=== PATIENT | male | born 1960 | race Caucasian/White ===

== ENCOUNTER 2021-11-10 10:20 | Outpatient (RCR) | payer BC, SELFPAY ==
--- NOTE | ~2021-11-10 | XR_ITS ---
EXAMINATION: XR TOES, RIGHT CLINICAL INFORMATION: Right great toe, nonhealing ulcer. COMPARISON: None TECHNIQUE: 3 views of the right toes were obtained. FINDINGS: There is soft tissue hypodensity seen in the medial aspect of right distal great toe, likely edema. No periosteal thickening or erosive changes seen of the great toe. Rest of the visualized right foot is unremarkable. XR/XR toe RT min 2V IMPRESSION: Soft tissue hypodensity, likely edema, along the dorsal and the medial aspect of right great toe. No definite gas visualized. There is no periosteal thickening or elevation. There is moderate soft tissue swelling right great toe.
== END 2022-01-20 16:23 | disposition home or self-care (01) ==
LOC: HO.WCC 10:20
PROVIDERS: PCP Family Medicine; Visit Provider Physician Assistant
DX: E11.621 Type 2 diabetes mellitus with foot ulcer (principal); L97.512 Non-pressure chronic ulcer of other part of right foot with fat layer exposed; I10 Essential (primary) hypertension; L84 Corns and callosities; Z79.01 Long term (current) use of anticoagulants
CPT/HCPCS: 11042; 73660; 97597; 99212; 99213

== ENCOUNTER 2022-01-26 | Outpatient (RCR) | payer BC, SELFPAY | END 2022-04-22 13:59 | disposition home or self-care (01) | LOC: HO.WCC | PROVIDERS: PCP Family Medicine; Visit Provider Physician Assistant | DX: E11.621 Type 2 diabetes mellitus with foot ulcer (principal); L97.512 Non-pressure chronic ulcer of other part of right foot with fat layer exposed; L84 Corns and callosities; I10 Essential (primary) hypertension; Z79.2 Long term (current) use of antibiotics | CPT/HCPCS: 11042; 97597; 99212; 99213 ==

== ENCOUNTER 2022-02-17 09:20 | Outpatient (RCR) | payer BC, SELFPAY | END 2022-02-25 11:48 | disposition home or self-care (01) | LOC: HO.WCC 09:20 | PROVIDERS: PCP Family Medicine; Visit Provider Surgery | DX: E11.621 Type 2 diabetes mellitus with foot ulcer (principal); L97.512 Non-pressure chronic ulcer of other part of right foot with fat layer exposed; E11.40 Type 2 diabetes mellitus with diabetic neuropathy, unspecified; I10 Essential (primary) hypertension; Z79.84 Long term (current) use of oral hypoglycemic drugs | CPT/HCPCS: 11042 ==

== ENCOUNTER 2022-06-24 13:54 | Outpatient (REF) | payer BC, SELFPAY ==
--- NOTE | ~2022-06-24 | US_ITS ---
EXAMINATION: NONINVASIVE ASSESSMENT OF THE ARTERIES OF BOTH LOWER EXTREMITIES INCLUDING BILATERAL LOWER EXTREMITY DUPLEX. CLINICAL INFORMATION: Peripheral vascular disease COMPARISON: None TECHNIQUE: duplex Doppler techniques with wave form analysis and measurement of velocities in the left common femoral, profunda femoral, superficial femoral, popliteal, tibial and peroneal arteries. The study was performed only at rest. FINDINGS: RIGHT LEG LEFT LEG: Common femoral artery: 174 cm/s, Multiphasic Profunda femoris artery: 128 cm/s, Multiphasic Superficial femoral artery (proximal): 142 cm/s, Multiphasic Superficial femoral artery (mid): 188 cm/s, Multiphasic Superficial femoral artery (distal): 97 cm/s, Multiphasic Proximal Popliteal artery: 156 cm/s, Multiphasic Mid posterior tibial artery: Not visualized Peroneal artery: Not visualized US/US arterial duplex LE LT IMPRESSION: Mild atherosclerotic disease in the left lower extremity. Nonvisualization of the posterior tibial and peroneal arteries.
== END 2022-06-24 13:55 | disposition home or self-care (01) ==
LOC: HO.US 13:54
PROVIDERS: PCP Family Medicine; Visit Provider Surgery
DX: I73.89 Other specified peripheral vascular diseases (principal)
CPT/HCPCS: 93926

== ENCOUNTER 2022-06-29 08:00 | Outpatient (RCR) | payer BC, SELFPAY | END 2022-07-27 13:58 | disposition home or self-care (01) | LOC: HO.WCC 08:00 | PROVIDERS: Visit Provider Surgery | DX: E11.621 Type 2 diabetes mellitus with foot ulcer (principal); L97.526 Non-pressure chronic ulcer of other part of left foot with bone involvement without evidence of necrosis; E11.51 Type 2 diabetes mellitus with diabetic peripheral angiopathy without gangrene; L08.9 Local infection of the skin and subcutaneous tissue, unspecified; I48.0 Paroxysmal atrial fibrillation; I10 Essential (primary) hypertension; Z79.01 Long term (current) use of anticoagulants; Z79.2 Long term (current) use of antibiotics; Z79.899 Other long term (current) drug therapy | CPT/HCPCS: 11042; 11043; 99212 ==

== ENCOUNTER → 2022-07-01 13:53 | Outpatient (BNVA) | payer BC, SELFPAY | PROVIDERS: PCP Family Medicine; Visit Provider Surgery Vascular Surgery | DX: Z13.89 Encounter for screening for other disorder (principal) ==

== ENCOUNTER 2022-07-07 12:58 | Inpatient (IN) | payer BC, SELFPAY ==
--- NOTE | ~2022-07-07 | XR_ITS ---
EXAMINATION: XR TOES, LEFT CLINICAL INFORMATION: Chronic wound great toe COMPARISON: None TECHNIQUE: 4 views of the left toes were obtained. FINDINGS: A soft tissue defect is seen just medial to the DIP joint of the first digit. No underlying bony destructive changes are seen. Some density seen overlying the medial distal phalanx on oblique images may be related to patient bandages. Vascular calcifications are present. Some minor degenerative changes are seen at the DIP joints. XR/XR toe LT min 2V IMPRESSION: No evidence of osteomyelitis. Soft tissue defect as described above.
[2022-07-07 13:03] VITALS: BP 152/79; PULSE 102; RESP 18; TEMP 36.8; O2SAT 97; BMI 47.0
--- NOTE | 2022-07-07 13:03 | ED_ITS ---
HPI - General Adult General Chief complaint: General Medical <JOHN Bocanegra - Last Filed: 07/07/22 13:08> Stated complaint: sent by wound clinic for antibiotics <JOHN Bocanegra - Last Filed: 07/07/22 13:08> Time Seen by Provider: 07/07/22 14:43 <JOHN Bocanegra - Last Filed: 07/07/22 13:08> Source: patient <Wanda Noriega MD - Last Filed: 07/07/22 16:32> Mode of arrival: ambulatory <Wanda Noriega MD - Last Filed: 07/07/22 16:32> History of Present Illness HPI narrative: 62-year-old male with history of diabetes and hypertension presents as a referral from the wound clinic, he denies any fever chills but states that his left great toe has been worsening after he discovered a ?blood blister? on his left great toe. He states the since that time the toe his this become much worse. <Wanda Noriega MD - Last Filed: 07/07/22 16:32> Related Data Home medications: Home Medications Medication Instructions Recorded Confirmed amiodarone 200 mg tablet 200 mg PO DAILY 07/01/22 apixaban 5 mg tablet (Eliquis) 5 mg PO BID 07/01/22 atorvastatin 20 mg tablet 20 mg PO DAILY 07/01/22 diltiazem HCl 240 mg 240 mg PO DAILY 07/01/22 capsule,extended release 24 hr doxycycline hyclate 100 mg capsule 100 mg PO BID 07/01/22 furosemide 40 mg tablet 40 mg PO DAILY 07/01/22 gabapentin 300 mg capsule mg PO 07/01/22 glipizide 5 mg tablet, extended 5 mg PO BID 07/01/22 release 24 hr sitagliptin phosphate 100 mg 100 mg PO DAILY 07/01/22 tablet (Januvia) <JOHN Bocanegra - Last Filed: 07/07/22 13:08> Allergies/adverse reactions: Allergies Allergy/AdvReac Type Severity Reaction Status Date / Time No Known Allergies Allergy Verified 07/07/22 13:07 <JOHN Bocanegra - Last Filed: 07/07/22 13:08> Review of Systems Review of Systems: Pertinent positives and negatives as stated in HPI <Wanda Noriega MD - Last Filed: 07/07/22 16:32> [facility] Past Medical History Source: nursing notes reviewed <Wanda Noriega MD - Last Filed: 07/07/22 16:32> Social History Social History: Social History Patient Tobacco Use Status: Never used Tobacco Advance Directives: No <JOHN Bocanegra - Last Filed: 07/07/22 13:08> Physical Exam ED Vital Signs: Vital Signs - 24 hr 07/07/22 13:03 07/07/22 15:05 07/07/22 15:32 Temperature 98.2 F 98.6 F 98.1 F Pulse Rate 102 H 98 98 Respiratory Rate 18 20 16 Blood Pressure 152/79 H 128/55 L 146/71 H Pulse Oximetry 97 97 98 Oxygen Delivery Method Room Air Room Air Room Air BMI result Body Mass Index 47.0 <JOHN Bocanegra - Last Filed: 07/07/22 13:08> Vital Signs - 24 hr 07/07/22 13:03 07/07/22 15:05 07/07/22 15:32 Temperature 98.2 F 98.6 F 98.1 F Pulse Rate 102 H 98 98 Respiratory Rate 18 20 16 Blood Pressure 152/79 H 128/55 L 146/71 H Pulse Oximetry 97 97 98 Oxygen Delivery Method Room Air Room Air Room Air BMI result Body Mass Index 47.0 VITAL SIGNS: Reviewed. GENERAL: Well developed, well nourished, in no acute distress. HEAD: Normocephalic/atraumatic EYES: PERRLA, EOMI LUNGS: Normal breath sounds. No adventitious sounds or accessory muscle use. SpO2<97> CARDIOVASCULAR: Regular rate and rhythm without noted murmurs, no JVD but mild lower extremity edema ABDOMEN: Soft, non-tender, non-distended with bowel sounds. MUSCULOSKELETAL: No tenderness, deformities, or effusions noted on gross inspection. EXTREMITIES: No cyanosis, clubbing or edema; LEFT GREAT TOE: Foul odor, discoloration on the medial aspect of the toe, there is noted nonhealing ulceration to the medial aspect which clearly extends to the bone SKIN: Inspection of the skin reveals no rashes NEUROLOGIC: Alert and oriented x 4. Strength and sensation to light touch were grossly intact x 4. <Wanda Noriega MD - Last Filed: 07/07/22 16:32> Course Course Course Narrative: RME - 62 yo male with history of afib on Eliquis, PAD, DM2, with worsening left great toe wound despite being on PO abx for the last week. Sent to the ER from Wound Clinic for IV abx, instructed to stop taking Eliquis (last dose this AM for debridement or stent placement.) Chronic drainage from the wound. No fever at home. Labs, XR, and cultures ordered. Planned admit. <JOHN Bocanegra - Last Filed: 07/07/22 13:08> Medications Administered Generic Name Dose Route Start Last Admin Trade Name Freq PRN Reason Stop Dose Admin Vancomycin HCl 2,000 mg in 520 mls @ 260 mls/hr 07/07/22 15:21 07/07/22 16:23 Vancomycin/Ns IV 07/07/22 17:20 260 mls/hr ONCE ONE Administration Discontinued Medications Generic Name Dose Route Start Last Admin Trade Name Freq PRN Reason Stop Dose Admin Piperacillin Sod/Tazobactam 50 mls @ 100 mls/hr 07/07/22 15:16 07/07/22 16:18 Sod 3.375 gm/ Sodium Chloride IV 07/07/22 15:45 Infused ONCE ONE Infusion <JOHN Bocanegra - Last Filed: 07/07/22 13:08> Medications Administered Generic Name Dose Route Start Last Admin Trade Name Freq PRN Reason Stop Dose Admin Vancomycin HCl 2,000 mg in 520 mls @ 260 mls/hr 07/07/22 15:21 07/07/22 16:23 Vancomycin/Ns IV 07/07/22 17:20 260 mls/hr ONCE ONE Administration Discontinued Medications Generic Name Dose Route Start Last Admin Trade Name Freq PRN Reason Stop Dose Admin Piperacillin Sod/Tazobactam 50 mls @ 100 mls/hr 07/07/22 15:16 07/07/22 16:18 Sod 3.375 gm/ Sodium Chloride IV 07/07/22 15:45 Infused ONCE ONE Infusion <Wanda Noriega MD - Last Filed: 07/07/22 16:32> Medical Decision Making Medical Decision Making MDM Narrative: This is a 62-year-old male who presents with clinical diagnosis of osteomyelitis of the left great toe that actually appears to be gangrenous in nature. Patient denies any systemic symptoms, I did briefly discuss vascular intervention with Dr Be who recommends at this time initiation of IV antibiotics and feels that vascular can be consulted after antibiotics are initiated. I have reviewed the patient's workup and he does have a significant leukocytosis and although he does not have fever or chills at this time the toe looks to be a prominent threat for possible systemic bacteremia. Unfortunately, our vascular surgeon is not available at this time. 1537: Dr. Keen was contacted regarding admission for IV antibiotics and treatment for osteomyelitis/wet gangrene, however he has raised concerns about admission versus transferring due to patient needing vascular intervention. Unfortunately, Dr. Washington is covering and will be consulted. 1621: Dr. Washington evaluated the patient and agrees that he should be admitted for IV antibiotics as there is no evidence of threatened/ischemic limb. Inpatient hospitalist agreeable for admission. <Wanda Noriega MD - Last Filed: 07/07/22 16:32> Differential Diagnosis Please see the discussion above <Wanda Noriega MD - Last Filed: 07/07/22 16:32> Consult Healthcare Provider Management of the patient was discussed with: Hospitalist <Wanda Noriega MD - Last Filed: 07/07/22 16:32> Please see discussion above <Wanda Noriega MD - Last Filed: 07/07/22 16:32> Lab Data Please see discussion above <Wanda Noriega MD - Last Filed: 07/07/22 16:32> Result Diagrams: 07/07/22 13:19 07/07/22 13:19 <JOHN Bocanegra - Last Filed: 07/07/22 13:08> Labs: Lab Results 07/07/22 07/07/22 07/07/22 Range/Units 13:18 13:19 13:19 WBC 14.9 H (4.8-10.8) X10*3/uL RBC 5.24 (4.60-5.80) X10*6/uL Hgb 14.7 (14.0-18.0) g/dl Hct 45.1 (42.0-52.0) % MCV 86.1 (80.0-98.0) fL MCH 28.1 (27.0-33.0) pg MCHC 32.6 (31.0-36.0) g/dl RDW 13.2 (11.0-16.0) % Plt Count 291 (160-400) X10*3/uL MPV 11.6 (9.4-12.4) fL Immature Gran % (Auto) 0.3 (0.0-0.4) % Neut % (Auto) 87.2 H (45-73) % Lymph % (Auto) 7.0 L (20-40) % [place] % (Auto) 5.1 (2-11) % Eos % (Auto) 0.1 (0-4) % Baso % (Auto) 0.3 (0-2) % Lymph # (Auto) 1.1 L (1.2-4.9) X10*3/uL [place] # (Auto) 0.8 (0.1-1.2) X10*3/uL Eos # (Auto) 0.0 (0.0-0.4) X10*3/uL Baso # (Auto) 0.0 (0.0-0.2) X10*3/uL Abs Immat Gran (auto) 0.05 H (0.00-0.03) X10*3/uL Absolute Neuts (auto) 13.0 H (2.0-8.3) x10*3/uL Absolute Nucleated RBC 0.000 (0.0-0.012) X10*3/uL Nucleated RBC % (auto) 0.0 (0.0-0.2) /100WBC ESR 69 H (0-15) MM/HR Sodium (135-145) mmol/L Potassium (3.3-5.1) mmol/L Chloride (96-108) mmol/L Carbon Dioxide (22-29) mmol/L Anion Gap (12-20) BUN (9-16) mg/dL Creatinine (0.5-1.4) mg/dL Estim Creat Clear Calc Estimated GFR Random Glucose (60-115) mg/dL Lactic Acid 1.1 (0.5-2.0) mmol/L Calcium (8.4-10.2) mg/dL Magnesium (1.6-2.6) mg/dL Total Bilirubin (0.0-1.0) mg/dL Direct Bilirubin (0.0-0.5) mg/dL AST (5-37) U/L ALT (0-40) U/L Alkaline Phosphatase (39-117) U/L C-Reactive Protein (< or = 0.50) mg/dL Total Protein (6.5-8.0) g/dL Albumin (3.5-5.0) g/dL COVID-19 ([facility]) (Negative) COVID-19 Clin Com 07/07/22 07/07/22 Range/Units 13:19 13:19 WBC (4.8-10.8) X10*3/uL RBC (4.60-5.80) X10*6/uL Hgb (14.0-18.0) g/dl Hct (42.0-52.0) % MCV (80.0-98.0) fL MCH (27.0-33.0) pg MCHC (31.0-36.0) g/dl RDW (11.0-16.0) % Plt Count (160-400) X10*3/uL MPV (9.4-12.4) fL Immature Gran % (Auto) (0.0-0.4) % Neut % (Auto) (45-73) % Lymph % (Auto) (20-40) % [place] % (Auto) (2-11) % Eos % (Auto) (0-4) % Baso % (Auto) (0-2) % Lymph # (Auto) (1.2-4.9) X10*3/uL [place] # (Auto) (0.1-1.2) X10*3/uL Eos # (Auto) (0.0-0.4) X10*3/uL Baso # (Auto) (0.0-0.2) X10*3/uL Abs Immat Gran (auto) (0.00-0.03) X10*3/uL Absolute Neuts (auto) (2.0-8.3) x10*3/uL Absolute Nucleated RBC (0.0-0.012) X10*3/uL Nucleated RBC % (auto) (0.0-0.2) /100WBC ESR (0-15) MM/HR Sodium 138 (135-145) mmol/L Potassium 3.9 (3.3-5.1) mmol/L Chloride 100 (96-108) mmol/L Carbon Dioxide 27 (22-29) mmol/L Anion Gap 15 (12-20) BUN 19 H (9-16) mg/dL Creatinine 1.36 (0.5-1.4) mg/dL Estim Creat Clear Calc 74.9 Estimated GFR 53 Random Glucose 185 H (60-115) mg/dL Lactic Acid (0.5-2.0) mmol/L Calcium 9.3 (8.4-10.2) mg/dL Magnesium 1.7 (1.6-2.6) mg/dL Total Bilirubin 0.7 (0.0-1.0) mg/dL Direct Bilirubin 0.2 (0.0-0.5) mg/dL AST 15 (5-37) U/L ALT 11 (0-40) U/L Alkaline Phosphatase 133 H (39-117) U/L C-Reactive Protein 9.17 H (< or = 0.50) mg/dL Total Protein 7.1 (6.5-8.0) g/dL Albumin 4.0 (3.5-5.0) g/dL COVID-19 ([facility]) Negative (Negative) COVID-19 Clin Com See Note <JOHN Bocanegra - Last Filed: 07/07/22 13:08> Lab Results 07/07/22 07/07/22 07/07/22 Range/Units 13:18 13:19 13:19 WBC 14.9 H (4.8-10.8) X10*3/uL RBC 5.24 (4.60-5.80) X10*6/uL Hgb 14.7 (14.0-18.0) g/dl Hct 45.1 (42.0-52.0) % MCV 86.1 (80.0-98.0) fL MCH 28.1 (27.0-33.0) pg MCHC 32.6 (31.0-36.0) g/dl RDW 13.2 (11.0-16.0) % Plt Count 291 (160-400) X10*3/uL MPV 11.6 (9.4-12.4) fL Immature Gran % (Auto) 0.3 (0.0-0.4) % Neut % (Auto) 87.2 H (45-73) % Lymph % (Auto) 7.0 L (20-40) % [place] % (Auto) 5.1 (2-11) % Eos % (Auto) 0.1 (0-4) % Baso % (Auto) 0.3 (0-2) % Lymph # (Auto) 1.1 L (1.2-4.9) X10*3/uL [place] # (Auto) 0.8 (0.1-1.2) X10*3/uL Eos # (Auto) 0.0 (0.0-0.4) X10*3/uL Baso # (Auto) 0.0 (0.0-0.2) X10*3/uL Abs Immat Gran (auto) 0.05 H (0.00-0.03) X10*3/uL Absolute Neuts (auto) 13.0 H (2.0-8.3) x10*3/uL Absolute Nucleated RBC 0.000 (0.0-0.012) X10*3/uL Nucleated RBC % (auto) 0.0 (0.0-0.2) /100WBC ESR 69 H (0-15) MM/HR Sodium (135-145) mmol/L Potassium (3.3-5.1) mmol/L Chloride (96-108) mmol/L Carbon Dioxide (22-29) mmol/L Anion Gap (12-20) BUN (9-16) mg/dL Creatinine (0.5-1.4) mg/dL Estim Creat Clear Calc Estimated GFR Random Glucose (60-115) mg/dL Lactic Acid 1.1 (0.5-2.0) mmol/L Calcium (8.4-10.2) mg/dL Magnesium (1.6-2.6) mg/dL Total Bilirubin (0.0-1.0) mg/dL Direct Bilirubin (0.0-0.5) mg/dL AST (5-37) U/L ALT (0-40) U/L Alkaline Phosphatase (39-117) U/L C-Reactive Protein (< or = 0.50) mg/dL Total Protein (6.5-8.0) g/dL Albumin (3.5-5.0) g/dL COVID-19 ([facility]) (Negative) COVID-19 Clin Com 07/07/22 07/07/22 Range/Units 13:19 13:19 WBC (4.8-10.8) X10*3/uL RBC (4.60-5.80) X10*6/uL Hgb (14.0-18.0) g/dl Hct (42.0-52.0) % MCV (80.0-98.0) fL MCH (27.0-33.0) pg MCHC (31.0-36.0) g/dl RDW (11.0-16.0) % Plt Count (160-400) X10*3/uL MPV (9.4-12.4) fL Immature Gran % (Auto) (0.0-0.4) % Neut % (Auto) (45-73) % Lymph % (Auto) (20-40) % [place] % (Auto) (2-11) % Eos % (Auto) (0-4) % Baso % (Auto) (0-2) % Lymph # (Auto) (1.2-4.9) X10*3/uL [place] # (Auto) (0.1-1.2) X10*3/uL Eos # (Auto) (0.0-0.4) X10*3/uL Baso # (Auto) (0.0-0.2) X10*3/uL Abs Immat Gran (auto) (0.00-0.03) X10*3/uL Absolute Neuts (auto) (2.0-8.3) x10*3/uL Absolute Nucleated RBC (0.0-0.012) X10*3/uL Nucleated RBC % (auto) (0.0-0.2) /100WBC ESR (0-15) MM/HR Sodium 138 (135-145) mmol/L Potassium 3.9 (3.3-5.1) mmol/L Chloride 100 (96-108) mmol/L Carbon Dioxide 27 (22-29) mmol/L Anion Gap 15 (12-20) BUN 19 H (9-16) mg/dL Creatinine 1.36 (0.5-1.4) mg/dL Estim Creat Clear Calc 74.9 Estimated GFR 53 Random Glucose 185 H (60-115) mg/dL Lactic Acid (0.5-2.0) mmol/L Calcium 9.3 (8.4-10.2) mg/dL Magnesium 1.7 (1.6-2.6) mg/dL Total Bilirubin 0.7 (0.0-1.0) mg/dL Direct Bilirubin 0.2 (0.0-0.5) mg/dL AST 15 (5-37) U/L ALT 11 (0-40) U/L Alkaline Phosphatase 133 H (39-117) U/L C-Reactive Protein 9.17 H (< or = 0.50) mg/dL Total Protein 7.1 (6.5-8.0) g/dL Albumin 4.0 (3.5-5.0) g/dL COVID-19 ([facility]) Negative (Negative) COVID-19 Clin Com See Note <Wanda Noriega MD - Last Filed: 07/07/22 16:32> Chronic Conditions Patient?s care impacted by: Diabetes and Hypertension <Wanda Noriega MD - Last Filed: 07/07/22 16:32> Critical Care Time Critical Care Time Critical Care Time: Yes <Wanda Noriega MD - Last Filed: 07/07/22 16:32> Total Critical Care Time: 45 <Wanda Noriega MD - Last Filed: 07/07/22 16:32> Attestation: I personally attest to this time spent taking care of the patient. <Wanda Noriega MD - Last Filed: 07/07/22 16:32> Discharge Plan Discharge Clinical Impression: Osteomyelitis of great toe of left foot, PAD (peripheral artery disease), Diabetes <JOHN Bocanegra - Last Filed: 07/07/22 13:08> Patient Disposition: Admitted As Inpatient <JOHN Bocanegra - Last Filed: 07/07/22 13:08>
[2022-07-07 13:24] LABS: MANUAL DIFF FLAG NO
[2022-07-07 13:39] LABS: Basophils Percent Auto 0.3 % (0-2); Eosinophils Percent Auto 0.1 % (0-4); Hematocrit 45.1 % (42.0-52.0); Hemoglobin 14.7 g/dl (14.0-18.0); Imm Gran Abs Auto 0.05 X10*3/uL (0.00-0.03); Imm Gran Pct Auto 0.3 % (0.0-0.4); Lymphocytes Absolute Auto 1.1 X10*3/uL (1.2-4.9); Mean Corpuscular HGB Conc 32.6 g/dl (31.0-36.0); Mean Corpuscular Hemoglobin 28.1 pg (27.0-33.0); Mean Corpuscular Volume 86.1 fL (80.0-98.0); Mean Platelet Volume 11.6 fL (9.4-12.4); Monocytes Absolute Auto 0.8 X10*3/uL (0.1-1.2); Monocytes Percent Auto 5.1 % (2-11); Neutrophils Percent Auto 87.2 % (45-73); Platelet Count 291 X10*3/uL (160-400); Red Blood Count 5.24 X10*6/uL (4.60-5.80); Red Cell Distribution Width 13.2 % (11.0-16.0); White Blood Count 14.9 X10*3/uL (4.8-10.8)
[2022-07-07 13:43] LABS: COVID-19 Test Negative (Negative); IDNOW Serial# 16C4AD1C
[2022-07-07 14:00] LABS: Lactic Acid 1.1 mmol/L (0.5-2.0)
[2022-07-07 14:04] LABS: Alanine Aminotransferase 11 U/L (0-40); Alkaline Phosphatase 133 U/L (39-117); Anion Gap 15 (12-20); Aspartate Amino Transferase 15 U/L (5-37); Bilirubin Direct 0.2 mg/dL (0.0-0.5); Bilirubin Total 0.7 mg/dL (0.0-1.0); Blood Urea Nitrogen 19 mg/dL (9-16); C Reactive Protein 9.17 mg/dL (< or = 0.50); Calcium 9.3 mg/dL (8.4-10.2); Carbon Dioxide 27 mmol/L (22-29); Chloride 100 mmol/L (96-108); Creatinine Clr Calc Pharmacy 74.9; Estimated Glomerular Filt Rate 53; Glucose Random 185 mg/dL (60-115); Magnesium 1.7 mg/dL (1.6-2.6); Potassium 3.9 mmol/L (3.3-5.1); Sodium 138 mmol/L (135-145); Total Protein 7.1 g/dL (6.5-8.0)
[2022-07-07 14:33] LABS: Erythrocyte Sedimentation Rate 69 MM/HR (0-15)
[2022-07-07 15:05] VITALS: BP 128/55; PULSE 98; RESP 20; TEMP 37; O2SAT 97
[2022-07-07 15:32] VITALS: BP 146/71; PULSE 98; RESP 16; TEMP 36.7; O2SAT 98
[2022-07-07] MEDS: Piperacillin Sodium/Tazobactam 3.375 GM in 0.9 % Sodium Chloride 50 ML IV ×2 (15:48→20:35)
--- NOTE | 2022-07-07 16:41 | PM.CNGS ---
History of Present Illness Consult details Consult date: 07/07/22 Requesting physician: Ofelia Keen Narrative: Covered for Dr. Duarte: 62-year-old male patient with history of peripheral vascular disease presenting with a left great toe infection with draining wound. Patient was evaluated by wound care earlier today and recommendation made for IV antibiotics. Patient is being considered for vascular surgery and has been evaluated by Dr. Duarte. Consultation requested for evaluation of great toe infection and possible need for vascular intervention. Review of Systems Review of Systems: Yes all other systems are reviewed and are negative [facility] Social History Social History Patient Tobacco Use Status: Never used Tobacco Advance Directives: No Meds Allergies Allergy/AdvReac Type Severity Reaction Status Date / Time No Known Allergies Allergy Verified 07/07/22 13:07 Active Medications: Current Medications Vancomycin HCl (Vancomycin/Ns) 2,000 mg in 520 mls @ 260 mls/hr IV ONCE ONE Stop: 07/07/22 17:20 Last Admin: 07/07/22 16:23 Dose: 260 mls/hr Pharmacy Consult (Consult Rx Perform Med Rec) 1 each MISCELLANE ONCE PRN PRN Reason: Consult order Home Medications Medication Instructions Recorded Confirmed Last Taken Type amiodarone 200 mg tablet 200 mg PO DAILY 07/01/22 Unknown History apixaban 5 mg tablet (Eliquis) 5 mg PO BID 07/01/22 Unknown History atorvastatin 20 mg tablet 20 mg PO DAILY 07/01/22 Unknown History diltiazem HCl 240 mg 240 mg PO DAILY 07/01/22 Unknown History capsule,extended release 24 hr doxycycline hyclate 100 mg capsule 100 mg PO BID 07/01/22 Unknown History furosemide 40 mg tablet 40 mg PO DAILY 07/01/22 Unknown History gabapentin 300 mg capsule mg PO 07/01/22 Unknown History glipizide 5 mg tablet, extended 5 mg PO BID 07/01/22 Unknown History release 24 hr sitagliptin phosphate 100 mg 100 mg PO DAILY 07/01/22 Unknown History tablet (Januvia) Physical Exam Vital Signs: Vital Signs: Last Vital Signs Temp 98.1 F 07/07/22 15:32 Pulse 98 07/07/22 15:32 Resp 16 07/07/22 15:32 BP 146/71 H 07/07/22 15:32 Pulse Ox 98 07/07/22 15:32 O2 Del Method 07/07/22 15:32 BMI result Body Mass Index 47.0 Const: General: no acute distress and well developed Nutritional Appearance: well nourished Orientation/consciousness: patient oriented x3 Limitations: no limitations HEENT: Head: Yes normocephalic Ears: hearing grossly normal bilaterally Resp: Effort & Inspection: normal respiratory effort, no audible wheezes, no cough and no respiratory distress GI: Inspection: Yes normal to inspection Skin: General skin exam: no rashes or lesions noted Neuro: General: patient oriented x3 Extrem: Other: Right great toe ulceration with bluish discoloration involving the proximal and distal phalanx. Open wound noted draining purulence material. Forefoot and plantar foot is warm with brisk capillary refill. No evidence of acute vascular compromise at this time. Results Labs 07/07/22 13:19 07/07/22 13:19 Labs: Abnormal lab results 07/07/22 07/07/22 07/07/22 Range/Units 13:19 13:19 13:19 WBC 14.9 H (4.8-10.8) X10*3/uL Neut % (Auto) 87.2 H (45-73) % Lymph % (Auto) 7.0 L (20-40) % Lymph # (Auto) 1.1 L (1.2-4.9) X10*3/uL Abs Immat Gran (auto) 0.05 H (0.00-0.03) X10*3/uL Absolute Neuts (auto) 13.0 H (2.0-8.3) x10*3/uL ESR 69 H (0-15) MM/HR BUN 19 H (9-16) mg/dL Random Glucose 185 H (60-115) mg/dL Alkaline Phosphatase 133 H (39-117) U/L C-Reactive Protein 9.17 H (< or = 0.50) mg/dL Short CBC 07/07/22 Range/Units 13:19 WBC 14.9 H (4.8-10.8) X10*3/uL Hgb 14.7 (14.0-18.0) g/dl Hct 45.1 (42.0-52.0) % Plt Count 291 (160-400) X10*3/uL BMP 07/07/22 13:19 Sodium 138 Potassium 3.9 Chloride 100 Carbon Dioxide 27 BUN 19 H Creatinine 1.36 Calcium 9.3 Liver Function 07/07/22 Range/Units 13:19 Total Bilirubin 0.7 (0.0-1.0) mg/dL Direct Bilirubin 0.2 (0.0-0.5) mg/dL AST 15 (5-37) U/L ALT 11 (0-40) U/L Alkaline Phosphatase 133 H (39-117) U/L Albumin 4.0 (3.5-5.0) g/dL All other labs normal. Assessment and Plan (1) Osteomyelitis of great toe of left foot: Status: Acute (2) Diabetes: Status: Acute (3) PAD (peripheral artery disease): Status: Acute Plan 62-year-old male patient with known history of peripheral artery disease now presenting with osteomyelitis of the left great toe. Patient does not require immediate vascular procedure but would benefit from IV antibiotics. Further vascular management as per Dr. Duarte upon his return on Tuesday. Time Spent With Patient Time: Total time managing care of this patient today ____ minutes. Procedures Date of Service Date of Service: 07/07/22
--- NOTE | 2022-07-07 16:48 | P.HPHOSP_ITS ---
History of Present Illness Date of Service: 07/07/22 Attending physician on admission: Agustina Steve Chief Complaint: My left great toe wound has been worsening This is a 62-year-old male with a past medical history as noted below who presented to the emergency department referred from the [facility] due to left great toe wound worsening in which he describes as a ?blood blister? on his left toe. Patient reports he has been followed by the wound clinic and he was also seen by vascular surgeon Dr. Duarte in the office on 07/01/2022 where there were concerns for wound penetration to bone and recommendations were to have a stent placed. Patient reports that he did not have a stent placed at that time as he was ?nervous? and wanted to go home to think about it. Left toes x-ray: Evidence of osteomyelitis. Soft tissue defect as described above. Initial laboratory results: WBC is 14.9, ESR 69, BUN/creatinine 19/1.36, random glucose 185, alk-phos 133, CRP 9.17, SARs COVID-19 not detected. In the emergency department the above is performed, surgery was consulted patient received 2 g vancomycin. The decision was made to admit patient for medical management. Review of Systems Review of Systems: A complete 12 point review of systems was performed and are negative if not noted in HPI. [facility] Medical History (Updated 07/07/22 @ 17:43 by DARELL Puentes) Atrial fibrillation Diabetes Diabetes mellitus type II, non insulin dependent Diabetic foot ulcer associated with type 2 diabetes mellitus HLD (hyperlipidemia) HTN (hypertension) PAD (peripheral artery disease) Family History (Updated 07/07/22 @ 17:43 by DARELL Puentes) Other HTN (hypertension) Social History (Updated 07/07/22 @ 17:45 by DARELL Puentes) Household Members: None Housing: Condominium Do you presently have visiting nurse or other home services: No Patient Tobacco Use Status: Never used Tobacco Use of substances other than those prescribed or required for medical reasons: No Currently Displaying Signs/Symptoms of Drug Intoxication Withdrawal: No Have you been hit, kicked, punched, or otherwise hurt by someone within the past year? If so, by whom?: No Do you feel safe in your current relationship?: No Current Relationship Is there a partner from a previous relationship who is making you feel unsafe now?: No Are you made to feel afraid or neglected: No Advance Directives: No Do you have thoughts of harming others: None Do you have a plan to hurt others: No Plan Recently lost weight without trying: No Nutrition Risks: No Nutritional Risk Poor oral hygiene: No Meds Allergies Allergy/AdvReac Type Severity Reaction Status Date / Time No Known Allergies Allergy Verified 07/07/22 13:07 Active Medications: Current Medications Acetaminophen (Acetaminophen 325 Mg Tablet) 650 mg PO Q6H PRN PRN Reason: Pain, Mild (Pain Scale 1-3) Dextrose (Dextrose 50 % 25 Gm/50 Ml Syringe) 25 gm IVPUSH Q15M PRN; Protocol PRN Reason: per Hypoglycemia Standing Ord. Docusate Sodium (Docusate Sodium 100 Mg Capsule) 100 mg PO BID [facility] Glucose (Glucose Gel 15 Gm Gel..Gram.) 15 gm PO Q15M PRN; Protocol PRN Reason: per Hypoglycemia Standing Ord. Vancomycin HCl (Vancomycin/Ns) 2,000 mg in 520 mls @ 260 mls/hr IV ONCE ONE Stop: 07/07/22 17:20 Last Admin: 07/07/22 16:23 Dose: 260 mls/hr Insulin Human Lispro (Insulin Lispro 100 Unit/Ml 3 Ml Vial) 0 unit [facility]; Protocol Magnesium Hydroxide (Milk Of Magnesia 30 Ml Oral.Susp) 30 ml PO DAILY PRN PRN Reason: Constipation Pharmacy Consult (Consult Rx Perform Med Rec) 1 each MISCELLANE ONCE PRN PRN Reason: Consult order Senna (Sennosides 8.6 Mg Tablet) 17.2 mg PO BEDTIME PRN PRN Reason: Constipation Sodium Chloride (0.9 % Sodium Chloride Flush 3 Ml Syringe) 3 ml IVFLUSH [facility] Home Medications Medication Instructions Recorded Confirmed Last Taken Type amiodarone 200 mg tablet 200 mg PO DAILY 07/01/22 07/07/22 07/07/22 History apixaban 5 mg tablet (Eliquis) 5 mg PO BID 07/01/22 07/07/22 07/07/22 History atorvastatin 20 mg tablet 20 mg PO DAILY 07/01/22 07/07/22 07/07/22 History diltiazem HCl 240 mg 240 mg PO DAILY 07/01/22 07/07/22 07/07/22 History capsule,extended release 24 hr doxycycline hyclate 100 mg capsule 100 mg PO BID 07/01/22 07/07/22 07/07/22 History furosemide 40 mg tablet 40 mg PO DAILY 07/01/22 07/07/22 07/07/22 History gabapentin 300 mg capsule 300 mg PO BID 07/01/22 07/07/22 07/07/22 History glipizide 5 mg tablet, extended 10 mg PO DAILY 07/01/22 07/07/22 07/07/22 History release 24 hr sitagliptin phosphate 100 mg 100 mg PO DAILY 07/01/22 07/07/22 07/07/22 History tablet (Januvia) fluticasone propionate 50 1 spray intranasal BID PRN 07/07/22 07/07/22 Unknown History mcg/actuation nasal congestion spray,suspension Physical Exam Vital Signs and Narrative: Vital Signs: Last Vital Signs Temp 98.1 F 07/07/22 15:32 Pulse 98 07/07/22 15:32 Resp 16 07/07/22 15:32 BP 146/71 H 07/07/22 15:32 Pulse Ox 98 07/07/22 15:32 O2 Del Method 07/07/22 15:32 BMI result Body Mass Index 47.0 Const: Other: General: Appears stated age, in no acute distress, answers questions accurately and appropriately. Skin: Warm and well perfused, no obvious wounds or abrasions, see left foot exam for further details. Cardiology: Irregularly irregular, rate controlled, no murmurs, rubs, gallops or clicks, no JVD or carotid bruits appreciated Respiratory: Lungs CTAB, no inspiratory or wheezing, rales or rhonchi Abdomen: Soft, morbidly obese, non distended, bowel sounds present in all four quadrants, no [place] sign Extremity: Nonpitting bilateral lower extremity edema noted, no redness, tenderness or swelling noted to bilateral lower extremities. Left foot: Great left toe noted to be odorous, there is a nonhealing ulcer to the medial aspect with extension to bone, cellulitic in appearance, erythema surrounding great left toe. Neuro: Alert and oriented x3, no obvious focal deficit Psych: Anxious, follows commands, no agitation restlessness noted Results Labs 07/07/22 13:19 07/07/22 13:19 Labs: Laboratory Results - last 24 hr 07/07/22 07/07/22 07/07/22 13:18 13:19 13:19 MCV 86.1 MCH 28.1 MCHC 32.6 RDW 13.2 Plt Count 291 MPV 11.6 Immature Gran % (Auto) 0.3 Neut % (Auto) 87.2 H Lymph % (Auto) 7.0 L [place] % (Auto) 5.1 Eos % (Auto) 0.1 Baso % (Auto) 0.3 Lymph # (Auto) 1.1 L [place] # (Auto) 0.8 Eos # (Auto) 0.0 Baso # (Auto) 0.0 Abs Immat Gran (auto) 0.05 H Absolute Neuts (auto) 13.0 H Absolute Nucleated RBC 0.000 Nucleated RBC % (auto) 0.0 ESR 69 H Anion Gap Estim Creat Clear Calc Estimated GFR Random Glucose Lactic Acid 1.1 Calcium Magnesium Total Bilirubin Direct Bilirubin AST ALT Alkaline Phosphatase C-Reactive Protein Total Protein Albumin COVID-19 ([facility]AN) COVID-19 [employer] 07/07/22 07/07/22 13:19 13:19 MCV MCH MCHC RDW Plt Count MPV Immature Gran % (Auto) Neut % (Auto) Lymph % (Auto) [place] % (Auto) Eos % (Auto) Baso % (Auto) Lymph # (Auto) [place] # (Auto) Eos # (Auto) Baso # (Auto) Abs Immat Gran (auto) Absolute Neuts (auto) Absolute Nucleated RBC Nucleated RBC % (auto) ESR Anion Gap 15 Estim Creat Clear Calc 74.9 Estimated GFR 53 Random Glucose 185 H Lactic Acid Calcium 9.3 Magnesium 1.7 Total Bilirubin 0.7 Direct Bilirubin 0.2 AST 15 ALT 11 Alkaline Phosphatase 133 H C-Reactive Protein 9.17 H Total Protein 7.1 Albumin 4.0 COVID-19 (GHASSAN) Negative COVID-19 Clin Com See Note Imaging Radiologist's Impressions: Impressions Toe X-Ray 07/07/22 13:53 IMPRESSION: No evidence of osteomyelitis. Soft tissue defect as described above. Assessment and Plan (1) Osteomyelitis of great toe of left foot: Status: Acute (2) Diabetes: Status: Acute (3) PAD (peripheral artery disease): Status: Acute Plan This is a 62-year-old male with a past medical history notable for atrial fibrillation anticoagulated on Xarelto, hypertension, hyperlipidemia, dds-mevonqm-gaufcqizh type 2 diabetes mellitus with a history of PUD. Osteomyelitis/wet gangrenous left great toe Nonhealing diabetic ulcer of left foot -62-year-old male admitted with osteomyelitis/wet gangrenous left toe. -physical exam consistent with osteomyelitis. -patient was seen by vascular surgeon Dr. Duarte in the office on 07/01/2022 and recommendations were for a stent to be placed as there was concerns for wound penetration to bone at that time. -general surgeon Dr. Washington saw the patient, will admit for IV antibiotics- Zosyn and vancomycin ordered -vascular surgery consulted, recommendations appreciated -analgesics, antiemetics and antipyretics ordered -repeat labs in a.m., await blood cultures. PAD -patient has been evaluated by vascular surgeon outpatient. -plan per above. Bri-rsqqcuj-wbrkwqtlv diabetes mellitus -insulin sliding scale. Hypoglycemia protocol in place. Oral anti hyperglycemics up and held. -diabetic diet. Atrial fibrillation Hypercoagulability secondary to atrial fibrillation Hypertension -patient reports that he was recently diagnosed with atrial fibrillation 02/2022. He denies any history of Congestive heart failure. -patient is followed by cardiology at [facility]. -antihypertensives and oral diuretic were resumed. Monitor blood pressures. -EKG ordered. -patient is normally anticoagulated on apixaban 5 mg p.o. b.i.d.-oral anticoagulation to be held and patient will be given subcu Lovenox/therapeutic dose Hyperlipidemia -statin continued. OTHER: DVT prophylaxis -Lovenox therapeutic dose. Holding oral Xarelto. Patient is a full HCP/person to contact is patient's sister Aide Calixto, Case and plan discussed with Dr Agustina Steve Time Spent With Patient Time: Total time managing care of this patient today ____ minutes. Quality Stroke Does the patient have a stroke diagnosis?: No VTE Prior VTE?: No VTE Risk Level:: Medical - moderate - high VTE Device Contraindication: N/A - Device Ordered VTE Drug Contraindication: N/A - Med Ordered
--- NOTE | 2022-07-07 17:00 | PHA.MEDREC ---
Pharmacy Consult ? Medication Reconciliation Pharmacy has completed the medication reconciliation.
[2022-07-07 17:28] LABS: Glucose, Whole Blood 132 mg/dL (60-115)
[2022-07-07 18:00] VITALS: BP 157/79; PULSE 88; RESP 18; TEMP 36.9; O2SAT 99
[2022-07-07] MEDS: LORazepam 0.5 MG TABLET PO (18:12)
--- NOTE | 2022-07-07 18:17 | PHA.PROG ---
Admission Date/Time: July 07, 2022 16:35 Indication: BONE AND JOINT Weight in k.078 kg Adjusted body weight in K.091 [place] body weight in Kg: Obesity Dosing Indication % IBW: Serum Creatinine - Last 168 Hours 07/07/22 13:19 Creatinine 1.36 Estimated CrCl and GFR - Last 168 Hours 07/07/22 13:19 Estim Creat Clear Calc 74.9 Estimated GFR 53 Vancomycin Loading Dose: 2000MG Current Vancomycin Dosing Regimen: 1500 Q 24H Vancomycin Monitoring using AUC goal of 400 - 600 range with trough as surrogate marker: 522 TROUGH 12.7 Date and Time for next Vancomycin Level to be drawn: 07/09 @1000 Pharmacist Comments on Vancomycin Plan: STARTING DOSE @ 1200 INSTEAD OF 1600 TOMORROW TO BE MORE AGRESSIVE. IF AM SCR IMPROVES, CONSIDER MOVING TO A Q12H DOSING SUCH 750MG Q12H. IF THE SCR RISES, CONSIDER CHANGING START TIME TO LATER IN THE DAY Vancomycin dosing will take advantage of Med Access as a clinical decision support tool that uses Bayesian modeling to calculate individual patient's pharmacokinetic parameters and forecast the patient's drug concentration time course with the target goal AUC 24 range of 400 - 600 mg/L/hr.
[2022-07-07 19:49] LABS: INTERNATIONAL NORM RATIO 1.7 (0.9-1.1); Prothrombin Time 20.4 SEC (10.0-13.1)
[2022-07-07 19:51] VITALS: BP 123/69; PULSE 81; RESP 18; TEMP 38; O2SAT 97
[2022-07-07 19:52] LABS: Partial Thromboplastin Time 36.4 SEC (26.0-36.4)
[2022-07-07] MEDS: Enoxaparin Sodium 150 MG/ML SYRINGE 135 MG SUBCUT (20:18)
[2022-07-07] MEDS: Gabapentin 300 MG CAPSULE PO (20:19)
[2022-07-07] MEDS: 0.9 % Sodium Chloride Flush 3 ML SYRINGE IVFLUSH (20:24)
[2022-07-07 21:17] LABS: Glucose, Whole Blood 238 mg/dL (60-115)
[2022-07-07] MEDS: Insulin Lispro 100 UNIT/ML 3 ML VIAL SUBCUT (21:38)
[2022-07-07 22:00] LABS: Appearance Urine Clear; Color Urine Yellow; Glucose Urine UA Negative (Negative); Leukocyte Esterase Urine Negative (Negative); Nitrite Urine Negative (Negative); Specific Gravity - Urine 1.015 (1.005-1.025); Urine Blood Negative (Negative); Urine Ketones Negative (Negative); Urine Protein Negative (Neg-Trace)
[2022-07-08 03:15] VITALS: BP 132/65; PULSE 84; RESP 18; TEMP 37.3; O2SAT 97
[2022-07-08] MEDS: Piperacillin Sodium/Tazobactam 3.375 GM in 0.9 % Sodium Chloride 50 ML IV ×4 (03:16→20:56)
[2022-07-08 06:17] LABS: MANUAL DIFF FLAG NO
[2022-07-08 06:21] LABS: Basophils Percent Auto 0.3 % (0-2); Eosinophils Absolute Auto 0.1 X10*3/uL (0.0-0.4); Eosinophils Percent Auto 0.5 % (0-4); Hematocrit 40.9 % (42.0-52.0); Imm Gran Abs Auto 0.03 X10*3/uL (0.00-0.03); Imm Gran Pct Auto 0.3 % (0.0-0.4); Lymphocytes Absolute Auto 1.3 X10*3/uL (1.2-4.9); Mean Corpuscular HGB Conc 31.8 g/dl (31.0-36.0); Mean Corpuscular Hemoglobin 27.8 pg (27.0-33.0); Mean Corpuscular Volume 87.4 fL (80.0-98.0); Mean Platelet Volume 12.1 fL (9.4-12.4); Monocytes Absolute Auto 0.8 X10*3/uL (0.1-1.2); Monocytes Percent Auto 7.6 % (2-11); Neutrophils Absolute Auto 7.8 x10*3/uL (2.0-8.3); Neutrophils Percent Auto 78.3 % (45-73); Platelet Count 231 X10*3/uL (160-400); Red Blood Count 4.68 X10*6/uL (4.60-5.80); Red Cell Distribution Width 13.3 % (11.0-16.0); White Blood Count 9.9 X10*3/uL (4.8-10.8)
[2022-07-08] MEDS: Enoxaparin Sodium 150 MG/ML SYRINGE 135 MG SUBCUT ×2 (06:21→18:01)
[2022-07-08 06:42] LABS: Anion Gap 11 (12-20); Blood Urea Nitrogen 16 mg/dL (9-16); Calcium 8.7 mg/dL (8.4-10.2); Carbon Dioxide 28 mmol/L (22-29); Chloride 102 mmol/L (96-108); Creatinine Clr Calc Pharmacy 90.2; Estimated Glomerular Filt Rate > 60; Glucose Random 97 mg/dL (60-115); Potassium 3.2 mmol/L (3.3-5.1); Sodium 138 mmol/L (135-145)
[2022-07-08] MEDS: 0.9 % Sodium Chloride Flush 3 ML SYRINGE IVFLUSH ×3 (07:40→21:34)
[2022-07-08 08:00] VITALS: BP 131/64; PULSE 93; RESP 20; TEMP 37.1; O2SAT 96
[2022-07-08 08:15] LABS: Glucose, Whole Blood 121 mg/dL (60-115)
[2022-07-08] MEDS: Gabapentin 300 MG CAPSULE PO ×2 (08:25→20:56)
[2022-07-08] MEDS: Atorvastatin Calcium 20 MG TABLET PO (08:25)
[2022-07-08] MEDS: Docusate Sodium 100 MG CAPSULE PO ×2 (08:25→20:56)
[2022-07-08] MEDS: dilTIAZem HCL CD 240 MG CAP.ER.DEG PO (08:25)
[2022-07-08] MEDS: Amiodarone HCL 200 MG TABLET PO (08:25)
[2022-07-08] MEDS: Potassium Chloride Packet 20 MEQ PACKET 40 MEQ PO (08:54)
--- NOTE | 2022-07-08 08:55 | HE.PHANOTE ---
Vancomycin Dosing Addendum Patient has only received a load at this time, Continue with 1500 mg Q24H.
[2022-07-08 11:28] LABS: Glucose, Whole Blood 199 mg/dL (60-115)
[2022-07-08] MEDS: Insulin Lispro 100 UNIT/ML 3 ML VIAL SUBCUT ×3 (11:41→20:56)
[2022-07-08] MEDS: vancomycin HCL 1,500 MG in 0.9 % Sodium Chloride 500 ML 333.33 MG IV (11:49)
--- NOTE | 2022-07-08 12:28 | P.PNIM_ITS ---
Subjective Subjective Date of Service: 07/08/22 Interval History: Seen and evaluated this morning Report pain is under good control but still having drainage from the wound No fever, chills or shortness of breath No other overnight events Review of Systems Review of Systems: Yes all other systems are reviewed and are negative Physical Exam Vital Signs: Vital Signs: Last Vital Signs Temp 98.8 F 07/08/22 08:00 Pulse 93 07/08/22 08:00 Resp 20 07/08/22 08:00 BP 131/64 07/08/22 08:00 Pulse Ox 96 07/08/22 08:00 O2 Del Method 07/08/22 08:00 BMI result Body Mass Index 47.0 Const: Other: Constitutional : Awake, interactive, not in distress Neck : Normal inspection, Supple Cardiovascular : RRR, no JVP, no lower extremity edema Respiratory : good bilateral air entry, no crackles, wheezes or rhonchi Gastrointestinal: soft, lax, Normal bowel sounds, Non tender Skin : Warm, Dry Extremities: Great left toe with nonhealing ulcer to the medial aspect with extension to bone, cellulitic in appearance, erythema surrounding great left toe with decrease pulses. Neurological : Alert & oriented x3, No focal deficit , CN 2-12 within normal Objective Data Active Medications Acetaminophen (Acetaminophen 325 Mg Tablet) 650 mg PO Q6H PRN PRN Reason: Pain, Mild (Pain Scale 1-3) Amiodarone HCl (Amiodarone Hcl 200 Mg Tablet) 200 mg PO DAILY [facility] Last Admin: 07/08/22 08:25 Dose: 200 mg Documented By: YOSVANY Atorvastatin Calcium (Atorvastatin Calcium 20 Mg Tablet) 20 mg PO DAILY [facility] Last Admin: 07/08/22 08:25 Dose: 20 mg Documented By: YOSVANY Dextrose (Dextrose 50 % 25 Gm/50 Ml Syringe) 25 gm IVPUSH Q15M PRN; Protocol PRN Reason: per Hypoglycemia Standing Ord. Diltiazem HCl (Diltiazem Hcl Cd 240 Mg Cap.Er.Deg) 240 mg PO DAILY [facility]; P rotocol Last Admin: 07/08/22 08:25 Dose: 240 mg Documented By: YOSVANY Docusate Sodium (Docusate Sodium 100 Mg Capsule) 100 mg PO BID [facility] Last Admin: 07/08/22 08:25 Dose: 100 mg Documented By: HO.DABA Enoxaparin Sodium (Enoxaparin Sodium 150 Mg/Ml Syringe) 135 mg 1 mg/kg (135 mg) SUBCUT Q12H [facility] Last Admin: 07/08/22 06:21 Dose: 135 mg Documented By: SHELIA Fluticasone Propionate (Fluticasone Propionate Nasal 16 Gm [place]) 1 spray NOSTRIL-B BID PRN PRN Reason: congestion Gabapentin (Gabapentin 300 Mg Capsule) 300 mg PO BID [facility] Last Admin: 07/08/22 08:25 Dose: 300 mg Documented By: YOSVANY Glucose (Glucose Gel 15 Gm Gel..Gram.) 15 gm PO Q15M PRN; Protocol PRN Reason: per Hypoglycemia Standing Ord. Piperacillin Sod/Tazobactam (Sod 3.375 gm/ Sodium Chloride) 50 mls @ 100 mls/hr IV Q6H [facility] Last Infusion: 07/08/22 08:58 Dose: 0 mls/hr Documented By: YOSVANY Vancomycin HCl 1,500 mg/ (Sodium Chloride) 500 mls @ 333.333 mls/hr IV Q24H [facility] Last Admin: 07/08/22 11:49 Dose: 333.33 mls/hr Documented By: YOSVANY Insulin Human Lispro (Insulin Lispro 100 Unit/Ml 3 Ml Vial) 0 unit SUBCUT QIDACHS [facility]; Protocol Last Admin: 07/08/22 11:41 Dose: 2 unit Documented By: YOSVANY Pharmacy Consult (Consult Rx Perform Med Rec) 1 each MISCELLANE ONCE PRN PRN Reason: Consult order Pharmacy Consult (Consult Rx Perform Med Rec) 1 each MISCELLANE ONCE PRN PRN Reason: Consult order Pharmacy Consult (Consult Rx Vancomycin Dosing) 1 each MISCELLANE DAILY PRN PRN Reason: Consult order Senna (Sennosides 8.6 Mg Tablet) 17.2 mg PO BEDTIME PRN PRN Reason: Constipation Sodium Chloride (0.9 % Sodium Chloride Flush 3 Ml Syringe) 3 ml IVFLUSH QSHIFT [facility] Last Admin: 07/08/22 07:40 Dose: 3 ml Documented By: YOSVANY Labs 07/08/22 05:41 07/08/22 05:41 Labs: Laboratory Results - last 24 hr 07/07/22 07/07/22 07/07/22 13:18 13:19 13:19 MCV 86.1 MCH 28.1 MCHC 32.6 RDW 13.2 Plt Count 291 MPV 11.6 Immature Gran % (Auto) 0.3 Neut % (Auto) 87.2 H Lymph % (Auto) 7.0 L [place] % (Auto) 5.1 Eos % (Auto) 0.1 Baso % (Auto) 0.3 Lymph # (Auto) 1.1 L [place] # (Auto) 0.8 Eos # (Auto) 0.0 Baso # (Auto) 0.0 Abs Immat Gran (auto) 0.05 H Absolute Neuts (auto) 13.0 H Absolute Nucleated RBC 0.000 Nucleated RBC % (auto) 0.0 ESR 69 H PT INR APTT Anion Gap Estim Creat Clear Calc Estimated GFR POC Glucose Random Glucose Lactic Acid 1.1 Calcium Magnesium Total Bilirubin Direct Bilirubin AST ALT Alkaline Phosphatase C-Reactive Protein Total Protein Albumin Urine Color Urine Appearance Urine pH Ur Specific Rescue Urine Protein Urine Glucose (UA) Urine Ketones Urine Blood Urine Nitrite Ur Leukocyte Esterase COVID-19 ([facility]) COVID-19 Clin Com 07/07/22 07/07/22 07/07/22 13:19 13:19 17:25 MCV MCH MCHC RDW Plt Count MPV Immature Gran % (Auto) Neut % (Auto) Lymph % (Auto) [place] % (Auto) Eos % (Auto) Baso % (Auto) Lymph # (Auto) [place] # (Auto) Eos # (Auto) Baso # (Auto) Abs Immat Gran (auto) Absolute Neuts (auto) Absolute Nucleated RBC Nucleated RBC % (auto) ESR PT INR APTT Anion Gap 15 Estim Creat Clear Calc 74.9 Estimated GFR 53 POC Glucose 132 H Random Glucose 185 H Lactic Acid Calcium 9.3 Magnesium 1.7 Total Bilirubin 0.7 Direct Bilirubin 0.2 AST 15 ALT 11 Alkaline Phosphatase 133 H C-Reactive Protein 9.17 H Total Protein 7.1 Albumin 4.0 Urine Color Urine Appearance Urine pH Ur Specific Rescue Urine Protein Urine Glucose (UA) Urine Ketones Urine Blood Urine Nitrite Ur Leukocyte Esterase COVID-19 ([facility]) Negative COVID-19 Clin Com See Note 07/07/22 07/07/22 07/07/22 19:35 21:09 21:47 MCV MCH MCHC RDW Plt Count MPV Immature Gran % (Auto) Neut % (Auto) Lymph % (Auto) [place] % (Auto) Eos % (Auto) Baso % (Auto) Lymph # (Auto) [place] # (Auto) Eos # (Auto) Baso # (Auto) Abs Immat Gran (auto) Absolute Neuts (auto) Absolute Nucleated RBC Nucleated RBC % (auto) ESR PT 20.4 H INR 1.7 H APTT 36.4 Anion Gap Estim Creat Clear Calc Estimated GFR POC Glucose 238 H Random Glucose Lactic Acid Calcium Magnesium Total Bilirubin Direct Bilirubin AST ALT Alkaline Phosphatase C-Reactive Protein Total Protein Albumin Urine Color Yellow Urine Appearance Clear Urine pH 6.0 Ur Specific Rescue 1.015 Urine Protein Negative Urine Glucose (UA) Negative Urine Ketones Negative Urine Blood Negative Urine Nitrite Negative Ur Leukocyte Esterase Negative COVID-19 ([facility]) COVID-19 whodoyou 07/08/22 07/08/22 07/08/22 05:41 05:41 08:08 MCV 87.4 MCH 27.8 MCHC 31.8 RDW 13.3 Plt Count 231 MPV 12.1 Immature Gran % (Auto) 0.3 Neut % (Auto) 78.3 H Lymph % (Auto) 13.0 L [place] % (Auto) 7.6 Eos % (Auto) 0.5 Baso % (Auto) 0.3 Lymph # (Auto) 1.3 [place] # (Auto) 0.8 Eos # (Auto) 0.1 Baso # (Auto) 0.0 Abs Immat Gran (auto) 0.03 Absolute Neuts (auto) 7.8 Absolute Nucleated RBC 0.000 Nucleated RBC % (auto) 0.0 ESR PT INR APTT Anion Gap 11 L Estim Creat Clear Calc 90.2 Estimated GFR > 60 POC Glucose 121 H Random Glucose 97 Lactic Acid Calcium 8.7 D Magnesium Total Bilirubin Direct Bilirubin AST ALT Alkaline Phosphatase C-Reactive Protein Total Protein Albumin Urine Color Urine Appearance Urine pH Ur Specific Rescue Urine Protein Urine Glucose (UA) Urine Ketones Urine Blood Urine Nitrite Ur Leukocyte Esterase COVID-19 ([facility]) COVID-19 [employer] Com 07/08/22 11:24 MCV MCH MCHC RDW Plt Count MPV Immature Gran % (Auto) Neut % (Auto) Lymph % (Auto) [place] % (Auto) Eos % (Auto) Baso % (Auto) Lymph # (Auto) [place] # (Auto) Eos # (Auto) Baso # (Auto) Abs Immat Gran (auto) Absolute Neuts (auto) Absolute Nucleated RBC Nucleated RBC % (auto) ESR PT INR APTT Anion Gap Estim Creat Clear Calc Estimated GFR POC Glucose 199 H Random Glucose Lactic Acid Calcium Magnesium Total Bilirubin Direct Bilirubin AST ALT Alkaline Phosphatase C-Reactive Protein Total Protein Albumin Urine Color Urine Appearance Urine pH Ur Specific Rescue Urine Protein Urine Glucose (UA) Urine Ketones Urine Blood Urine Nitrite Ur Leukocyte Esterase COVID-19 ([facility]) COVID-19 Clin Com Assessment and Plan (1) PAD (peripheral artery disease): Status: Acute (2) Osteomyelitis of great toe of left foot: Status: Acute Plan This is a 62-year-old male with a past medical history notable for atrial fibrillation anticoagulated on Xarelto, hypertension, hyperlipidemia, kiq-gwudxat-xmunufegb type 2 diabetes mellitus with a history of PUD. Osteomyelitis/wet gangrenous left great toe Nonhealing diabetic ulcer of left foot was seen by vascular surgeon Dr. Duarte in the office on 07/01/2022 and recommendations were for a stent to be placed as there was concerns for wound penetration to bone at that time. Dr. Washington following the patient, Continue IV antibiotics-Zosyn and vancomycin ordered vascular surgery consulted await blood cultures. Follow vancomycin trough PAD Continue statin and apixaban Pending vascular evaluation Ywy-zqnutdh-wqimbrgpk diabetes mellitus insulin sliding scale. Hypoglycemia protocol in place diabetic diet. Atrial fibrillation Hypercoagulability secondary to atrial fibrillation apixaban 5 mg p.o. b.i.d.-oral anticoagulation to be held and patient will be given subcu Lovenox/therapeutic dose Hypertension antihypertensives and oral diuretic were resumed Hyperlipidemia statin continued. DVT prophylaxis Lovenox therapeutic dose HCP/person to contact is patient's sister Aide Calixto, The patient will continue to need overnight hospital stay for treatment of os teomyelitis pending vascular surgery evaluation and possible intervention Time Spent With Patient Time: Total time managing care of this patient today ____ minutes. Quality Stroke Does the patient have a stroke diagnosis?: No VTE Prior VTE?: No VTE Risk Level:: Medical - moderate - high VTE Device Contraindication: N/A - Device Ordered VTE Drug Contraindication: N/A - Med Ordered
--- NOTE | 2022-07-08 13:55 | MHC.CM.PN ---
Addendum entered by Gaby Wray RN 07/08/22 13:59: PATIENT ALSO USES THE SERVICES OF [facility] Original Note: PATIENT LIVES ALONE. HE IS NOT COVID VACCINATED AND HAS NEVER CONTRACTED THE VIRUS HE WEARS A ORTHO BOOT AND HAS A CANE. HE IS INDEPENDENT WITH ADLS PATIENT FEELS HE MAY NEED STR AT DC T/W MADE PATIENT AWARE THAT [facility] DOES NOT HAVE A SNF BENEFIT BUT THAT T/W WOULD PLACE A REFERRAL FOR CONFIRMATION PATIENT PREFERS [facility]FERRALS, NOW PLACED. CM FOLLOWING
[2022-07-08 16:00] VITALS: BP 135/75; PULSE 85; RESP 18; TEMP 37.1; O2SAT 97
[2022-07-08 16:20] LABS: Glucose, Whole Blood 211 mg/dL (60-115)
[2022-07-08 17:27] LABS: INTERNATIONAL NORM RATIO 1.4 (0.9-1.1); Prothrombin Time 16.2 SEC (10.0-13.1)
[2022-07-08 20:00] VITALS: BP 120/60; PULSE 86; RESP 18; TEMP 37.3; O2SAT 94
[2022-07-08 20:10] LABS: Glucose, Whole Blood 193 mg/dL (60-115)
[2022-07-09] MEDS: Piperacillin Sodium/Tazobactam 3.375 GM in 0.9 % Sodium Chloride 50 ML IV ×4 (02:46→21:17)
[2022-07-09 04:00] VITALS: BP 108/63; PULSE 81; RESP 16; TEMP 36.8; O2SAT 96
[2022-07-09] MEDS: Enoxaparin Sodium 150 MG/ML SYRINGE 135 MG SUBCUT ×2 (06:20→19:43)
[2022-07-09 06:56] LABS: Creatinine Clr Calc Pharmacy 100.9; Estimated Glomerular Filt Rate > 60
[2022-07-09 07:31] LABS: Anion Gap 12 (12-20); Blood Urea Nitrogen 12 mg/dL (9-16); Calcium 8.6 mg/dL (8.4-10.2); Carbon Dioxide 25 mmol/L (22-29); Chloride 108 mmol/L (96-108); Estimated Glomerular Filt Rate > 60; Glucose Random 152 mg/dL (60-115); Potassium 4.1 mmol/L (3.3-5.1); Sodium 141 mmol/L (135-145)
[2022-07-09 07:34] LABS: Glucose, Whole Blood 163 mg/dL (60-115)
[2022-07-09 07:47] VITALS: BP 125/66; PULSE 85; RESP 18; TEMP 36.5; O2SAT 95
[2022-07-09] MEDS: dilTIAZem HCL CD 240 MG CAP.ER.DEG PO (08:34)
[2022-07-09] MEDS: Amiodarone HCL 200 MG TABLET PO (08:34)
[2022-07-09] MEDS: Gabapentin 300 MG CAPSULE PO ×2 (08:35→21:17)
[2022-07-09] MEDS: Docusate Sodium 100 MG CAPSULE PO ×2 (08:35→21:17)
[2022-07-09] MEDS: Atorvastatin Calcium 20 MG TABLET PO (08:35)
[2022-07-09] MEDS: Insulin Lispro 100 UNIT/ML 3 ML VIAL SUBCUT ×4 (08:36→21:16)
[2022-07-09] MEDS: 0.9 % Sodium Chloride Flush 3 ML SYRINGE IVFLUSH ×2 (08:38→15:36)
[2022-07-09 11:45] LABS: Glucose, Whole Blood 211 mg/dL (60-115)
[2022-07-09 12:07] LABS: Vancomycin Random 4.9 mcg/mL (15-20)
--- NOTE | 2022-07-09 12:22 | HE.PHANOTE ---
Vancomycin Dosing Addendum Patients level came back this morning at 4.9 mg/L. This is subtherapeutic for an indication of bone infection. Patients frequency was changed from Q24H to Q12H as the patient seems to be clearing fine. Renal function improving, scr to 0.97 from 1.13. Current dose 1250 mg Q12H. Predicted AUC 520 mg/L/hr. Patient at risk for potential dose dumping due to BMI. Will get level tomorrow 07/10 @1000 after 2 doses to ensure safety vs efficacy.
--- NOTE | 2022-07-09 12:25 | P.CDIC_ITS ---
CDI Concurrent Query Documentation Clarification: PHYSICIAN'S DOCUMENTATION REQUEST Date of Query: 07/09/22 1229 Patient Name: Delgado Vee Admit Date: 07/07/22 Dear Doctor, A review of the medical record indicates additional documentation may be needed. Please review below and update the documentation accordingly. Clinical Indicators: Is there a diagnosis that correlates with the findings below: Risk Factors/Clinical Indicators/Treatments BMI: 47.0 Height: 5ft 7in Weight: 136.078kg Per RN shift assessments: Abdomen large & obese If possible, please provide an associated diagnosis related to the abnormal BMI, such as: For a BMI >= 40: * Severe or Morbid Obesity * Obesity * Due to excess calories * Drug induced * Due to other cause * With alveolar hypoventilation * Without alveolar hypoventilation Or: * BMI is not significant * Other (please specify) * Unable to determine Use of terms such as suspected, likely, concern for, or probable (associated with a specific diagnosis that is being evaluated, monitored, or treated as if it exists) are acceptable and can be coded in the inpatient setting, when documented at the time of discharge. Thank you, Mayra Drake MS, RN, CCRN Extension: [phone] Please use your independent medical judgment in providing your response. THIS QUERY IS PART OF THE PERMANENT MEDICAL RECORD Provider Response: Morbid Obesity
[2022-07-09] MEDS: vancomycin HCL 1,250 MG in 0.9 % Sodium Chloride 250 ML 166.67 MG IV (12:29)
--- NOTE | 2022-07-09 12:30 | P.PNIM_ITS ---
Subjective Subjective Date of Service: 07/09/22 Interval History: Seen and evaluated this morning Report pain is under good control but still having drainage from the wound No fever, chills or shortness of breath No other overnight events Review of Systems Review of Systems: Yes all other systems are reviewed and are negative Physical Exam Vital Signs: Vital Signs: Last Vital Signs Temp 97.7 F 07/09/22 07:47 Pulse 85 07/09/22 07:47 Resp 18 07/09/22 07:47 BP 125/66 07/09/22 07:47 Pulse Ox 95 07/09/22 07:47 O2 Del Method 07/09/22 07:47 BMI result Body Mass Index 47.0 Const: Other: Constitutional : Awake, interactive, not in distress Neck : Normal inspection, Supple Cardiovascular : RRR, no JVP, no lower extremity edema Respiratory : good bilateral air entry, no crackles, wheezes or rhonchi Gastrointestinal: soft, lax, Normal bowel sounds, Non tender Skin : Warm, Dry Extremities: Great left toe with nonhealing ulcer to the medial aspect with extension to bone, cellulitic in appearance, erythema surrounding great left toe with decrease pulses. Neurological : Alert & oriented x3, No focal deficit , CN 2-12 within normal Objective Data Active Medications Acetaminophen (Acetaminophen 325 Mg Tablet) 650 mg PO Q6H PRN PRN Reason: Pain, Mild (Pain Scale 1-3) Amiodarone HCl (Amiodarone Hcl 200 Mg Tablet) 200 mg PO DAILY [facility] Last Admin: 07/09/22 08:34 Dose: 200 mg Documented By: JOVAN Atorvastatin Calcium (Atorvastatin Calcium 20 Mg Tablet) 20 mg PO DAILY [facility] Last Admin: 07/09/22 08:35 Dose: 20 mg Documented By: JOVAN Dextrose (Dextrose 50 % 25 Gm/50 Ml Syringe) 25 gm IVPUSH Q15M PRN; Protocol PRN Reason: per Hypoglycemia Standing Ord. Diltiazem HCl (Diltiazem Hcl Cd 240 Mg Cap.Er.Deg) 240 mg PO DAILY [facility]; Protocol Last Admin: 07/09/22 08:34 Dose: 240 mg Documented By: JOVAN Docusate Sodium (Docusate Sodium 100 Mg Capsule) 100 mg PO BID [facility] Last Admin: 07/09/22 08:35 Dose: 100 mg Documented By: JOVAN Enoxaparin Sodium (Enoxaparin Sodium 150 Mg/Ml Syringe) 135 mg 1 mg/kg (135 mg) SUBCUT Q12H [facility] Last Admin: 07/09/22 06:20 Dose: 135 mg Documented By: MARZENA Fluticasone Propionate (Fluticasone Propionate Nasal 16 Gm [place]) 1 spray NOSTRIL-B BID PRN PRN Reason: congestion Gabapentin (Gabapentin 300 Mg Capsule) 300 mg PO BID [facility] Last Admin: 07/09/22 08:35 Dose: 300 mg Documented By: JOAVN Glucose (Glucose Gel 15 Gm Gel..Gram.) 15 gm PO Q15M PRN; Protocol PRN Reason: per Hypoglycemia Standing Ord. Piperacillin Sod/Tazobactam (Sod 3.375 gm/ Sodium Chloride) 50 mls @ 100 mls/hr IV Q6H [facility] Last Infusion: 07/09/22 11:42 Dose: 0 mls/hr Documented By: ALLYN Vancomycin HCl 1,250 mg/ (Sodium Chloride) 250 mls @ 166.667 mls/hr IV Q12H [facility] Insulin Human Lispro (Insulin Lispro 100 Unit/Ml 3 Ml Vial) 0 unit SUBCUT QIDACHS [facility]; Protocol Last Admin: 07/09/22 12:04 Dose: 4 unit Documented By: ALLYN Pharmacy Consult (Consult Rx Perform Med Rec) 1 each MISCELLANE ONCE PRN PRN Reason: Consult order Pharmacy Consult (Consult Rx Perform Med Rec) 1 each MISCELLANE ONCE PRN PRN Reason: Consult order Pharmacy Consult (Consult Rx Vancomycin Dosing) 1 each MISCELLANE DAILY PRN PRN Reason: Consult order Senna (Sennosides 8.6 Mg Tablet) 17.2 mg PO BEDTIME PRN PRN Reason: Constipation Sodium Chloride (0.9 % Sodium Chloride Flush 3 Ml Syringe) 3 ml IVFLUSH QSHIFT [facility] Last Admin: 07/09/22 08:38 Dose: 3 ml Documented By: JOVAN Labs 07/08/22 05:41 07/09/22 05:50 Labs: Laboratory Results - last 24 hr 07/08/22 07/08/22 07/08/22 16:16 17:16 20:06 PT 16.2 H INR 1.4 H Anion Gap Estim Creat Clear Calc Estimated GFR POC Glucose 211 H 193 H Random Glucose Calcium Random Vancomycin 07/09/22 07/09/22 07/09/22 05:50 05:50 07:24 PT INR Anion Gap 12 Estim Creat Clear Calc 100.9 105.0 Estimated GFR > 60 > 60 POC Glucose 163 H Random Glucose 152 H Calcium 8.6 Random Vancomycin 07/09/22 07/09/22 09:54 11:36 PT INR Anion Gap Estim Creat Clear Calc Estimated GFR POC Glucose 211 H Random Glucose Calcium Random Vancomycin 4.9 L Microbiology Microbiology Results: Microbiology 07/07/22 14:52 Blood Culture - Preliminary Blood - Venous No growth after 24 hours. 07/07/22 14:52 Blood Culture - Preliminary Blood - Venous No growth after 24 hours. Assessment and Plan (1) PAD (peripheral artery disease): Status: Acute (2) Osteomyelitis of great toe of left foot: Status: Acute Plan This is a 62-year-old male with a past medical history notable for atrial fibrillation anticoagulated on Xarelto, hypertension, hyperlipidemia, est-ffkfbui-fywvysfug type 2 diabetes mellitus with a history of PUD. Osteomyelitis/wet gangrenous left great toe Nonhealing diabetic ulcer of left foot was seen by vascular surgeon Dr. Duarte in the office on 07/01/2022 and recommendations were for a stent to be placed as there was concerns for wound penetration to bone at that time. Dr. Washington following the patient, Continue IV antibiotics-Zosyn and vancomycin ordered vascular surgery consulted await blood cultures. Follow vancomycin trough PAD Continue statin and apixaban Pending vascular evaluation Mbl-aloliso-xgekgyuto diabetes mellitus insulin sliding scale. Hypoglycemia protocol in place diabetic diet. Atrial fibrillation Hypercoagulability secondary to atrial fibrillation apixaban 5 mg p.o. b.i.d.-oral anticoagulation to be held and patient will be given subcu Lovenox/therapeutic dose Hypertension antihypertensives and oral diuretic were resumed Hyperlipidemia statin continued. DVT prophylaxis Lovenox therapeutic dose HCP/person to contact is patient's sister Aide Calixto, The patient will continue to need overnight hospital stay for treatment of osteomyelitis pending vascular surgery evaluation and possible intervention Time Spent With Patient Time: Total time managing care of this patient today ____ minutes. Quality Stroke Does the patient have a stroke diagnosis?: No VTE Prior VTE?: No VTE Risk Level:: Medical - moderate - high VTE Device Contraindication: N/A - Device Ordered VTE Drug Contraindication: N/A - Med Ordered
--- NOTE | 2022-07-09 12:33 | P.CDIC_ITS ---
CDI Concurrent Query Documentation Clarification: PHYSICIAN'S DOCUMENTATION REQUEST Date of Query: 07/09/22 1233 Patient Name: Delgado Vee Admit Date: 07/07/22 Dear Doctor, A review of the medical record indicates additional documentation may be needed. Please review below and update the documentation accordingly. Clinical Indicators: A diagnosis of atrial fibrillation was documented on 07/07/22 but lacks specificity. Is there further clarification/specificity that correlates with the findings below: Risk Factors/Clinical Indicators/Treatments Per provider H&P on 07/07: past medical history notable for atrial fibrillation anticoagulated on Xarelto Per provider progress notes: Rhythmn irregularly irregular, rate controlled Per provider progress note on 07/09: Atrial fibrillation Hypercoagulability secondary to atrial fibrillation apixaban 5 mg p.o. b.i.d.-oral anticoagulation to be held and patient will be given subcu Lovenox/ therapeutic dose If possible, please provide further specificity regarding atrial fibrillation, such as: * Paroxysmal atrial fibrillation * Persistent atrial fibrillation * Long lasting persistent atrial fibrillation * Chronic or Permanent atrial fibrillation * Other (please specify) * Unable to determine Use of terms such as suspected, likely, concern for, or probable (associated with a specific diagnosis that is being evaluated, monitored, or treated as if it exists) are acceptable and can be coded in the inpatient setting, when documented at the time of discharge. Thank you, Mayra Drake MS, RN, CCRN Extension: [phone] Please use your independent medical judgment in providing your response. THIS QUERY IS PART OF THE PERMANENT MEDICAL RECORD Provider Response: Other Other Diagnosis: PAF
[2022-07-09 15:08] VITALS: BP 121/68; PULSE 80; RESP 18; TEMP 37; O2SAT 96
[2022-07-09 16:24] LABS: Glucose, Whole Blood 230 mg/dL (60-115)
[2022-07-09 19:30] VITALS: BP 142/75; PULSE 81; RESP 18; TEMP 36.8; O2SAT 96
[2022-07-09 20:46] LABS: Glucose, Whole Blood 245 mg/dL (60-115)
[2022-07-10] MEDS: vancomycin HCL 1,250 MG in 0.9 % Sodium Chloride 250 ML 166.67 MG IV ×2 (00:12→11:48)
[2022-07-10] MEDS: 0.9 % Sodium Chloride Flush 3 ML SYRINGE IVFLUSH ×3 (00:13→15:19)
[2022-07-10] MEDS: Piperacillin Sodium/Tazobactam 3.375 GM in 0.9 % Sodium Chloride 50 ML IV ×4 (03:45→20:40)
[2022-07-10 04:00] VITALS: BP 127/59; PULSE 88; RESP 17; TEMP 36.2; O2SAT 93
[2022-07-10] MEDS: Enoxaparin Sodium 150 MG/ML SYRINGE 135 MG SUBCUT ×2 (06:18→19:02)
[2022-07-10 07:01] VITALS: BP 110/56; PULSE 84; RESP 19; TEMP 36.7; O2SAT 94
[2022-07-10 07:09] LABS: Creatinine Clr Calc Pharmacy 89.4; Estimated Glomerular Filt Rate > 60
[2022-07-10 07:13] LABS: Glucose, Whole Blood 162 mg/dL (60-115)
[2022-07-10] MEDS: Insulin Lispro 100 UNIT/ML 3 ML VIAL SUBCUT ×4 (08:05→20:40)
[2022-07-10] MEDS: Gabapentin 300 MG CAPSULE PO ×2 (08:07→20:39)
[2022-07-10] MEDS: Docusate Sodium 100 MG CAPSULE PO ×2 (08:07→20:39)
[2022-07-10] MEDS: dilTIAZem HCL CD 240 MG CAP.ER.DEG PO (08:07)
[2022-07-10] MEDS: Atorvastatin Calcium 20 MG TABLET PO (08:07)
[2022-07-10] MEDS: Amiodarone HCL 200 MG TABLET PO (08:07)
[2022-07-10 10:03] LABS: Vancomycin Random 11.1 mcg/mL (15-20)
--- NOTE | 2022-07-10 10:14 | HE.PHANOTE ---
VANCOMYCIN ADDENDUM: Level came back at 11.1, patient had received 2 doses at q 12 hours, will keep same regimen and recheck level alfredo, AUC therapeutic at 11.6
--- NOTE | 2022-07-10 11:12 | HO.PM.IMPN ---
Subjective Subjective Date of Service: 07/10/22 Interval History: Seen and evaluated this morning Report pain is under good control but still having drainage from the wound No fever, chills or shortness of breath No other overnight events Review of Systems A complete 12 point review of systems was performed and are negative if not noted in HPI. Physical Exam Vital Signs: Vital Signs: Last Vital Signs Temp 98.1 F 07/10/22 07:01 Pulse 84 07/10/22 07:01 Resp 19 07/10/22 07:01 BP 110/56 L 07/10/22 07:01 Pulse Ox 94 07/10/22 07:01 O2 Del Method 07/10/22 07:01 BMI result Body Mass Index 47.0 Const: Other: Constitutional : Awake, interactive, not in distress Neck : Normal inspection, Supple Cardiovascular : RRR, no JVP, no lower extremity edema Respiratory : good bilateral air entry, no crackles, wheezes or rhonchi Gastrointestinal: soft, lax, Normal bowel sounds, Non tender Skin : Warm, Dry Extremities: Great left toe with nonhealing ulcer to the medial aspect with extension to bone, cellulitic in appearance, erythema surrounding great left toe with decrease pulses. Neurological : Alert & oriented x3, No focal deficit , CN 2-12 within normal Objective Data Active Medications Acetaminophen (Acetaminophen 325 Mg Tablet) 650 mg PO Q6H PRN PRN Reason: Pain, Mild (Pain Scale 1-3) Amiodarone HCl (Amiodarone Hcl 200 Mg Tablet) 200 mg PO DAILY [facility] Last Admin: 07/10/22 08:07 Dose: 200 mg Documented By: GUILLERMO Atorvastatin Calcium (Atorvastatin Calcium 20 Mg Tablet) 20 mg PO DAILY [facility] Last Admin: 07/10/22 08:07 Dose: 20 mg Documented By: GUILLERMO Dextrose (Dextrose 50 % 25 Gm/50 Ml Syringe) 25 gm IVPUSH Q15M PRN; Protocol PRN Reason: per Hypoglycemia Standing Ord. Diltiazem HCl (Diltiazem Hcl Cd 240 Mg Cap.Er.Deg) 240 mg PO DAILY [facility]; Protocol Last Admin: 07/10/22 08:07 Dose: 240 mg Documented By: GUILLERMO Docusate Sodium (Docusate Sodium 100 Mg Capsule) 100 mg PO BID [facility] Last Admin: 07/10/22 08:07 Dose: 100 mg Documented By: GUILLERMO Enoxaparin Sodium (Enoxaparin Sodium 150 Mg/Ml Syringe) 135 mg 1 mg/kg (135 mg) SUBCUT Q12H [facility] Last Admin: 07/10/22 06:18 Dose: 135 mg Documented By: ASTRID Fluticasone Propionate (Fluticasone Propionate Nasal 16 Gm [place]) 1 spray NOSTRIL-B BID PRN PRN Reason: congestion Gabapentin (Gabapentin 300 Mg Capsule) 300 mg PO BID [facility] Last Admin: 07/10/22 08:07 Dose: 300 mg Documented By: GUILLERMO Glucose (Glucose Gel 15 Gm Gel..Gram.) 15 gm PO Q15M PRN; Protocol PRN Reason: per Hypoglycemia Standing Ord. Piperacillin Sod/Tazobactam (Sod 3.375 gm/ Sodium Chloride) 50 mls @ 100 mls/hr IV Q6H [facility] Last Infusion: 07/10/22 08:56 Dose: 100 mls/hr Documented By: GUILLERMO Vancomycin HCl 1,250 mg/ (Sodium Chloride) 250 mls @ 166.667 mls/hr IV Q12H [facility] Last Infusion: 07/10/22 01:42 Dose: 0 mls/hr Documented By: ASTRID Insulin Human Lispro (Insulin Lispro 100 Unit/Ml 3 Ml Vial) 0 unit SUBCUT QIDACHS [facility]; Protocol Last Admin: 07/10/22 08:05 Dose: 2 unit Documented By: GUILLERMO Pharmacy Consult (Consult Rx Perform Med Rec) 1 each MISCELLANE ONCE PRN PRN Reason: Consult order Pharmacy Consult (Consult Rx Perform Med Rec) 1 each MISCELLANE ONCE PRN PRN Reason: Consult order Pharmacy Consult (Consult Rx Vancomycin Dosing) 1 each MISCELLANE DAILY PRN PRN Reason: Consult order Senna (Sennosides 8.6 Mg Tablet) 17.2 mg PO BEDTIME PRN PRN Reason: Constipation Sodium Chloride (0.9 % Sodium Chloride Flush 3 Ml Syringe) 3 ml IVFLUSH QSHIFT [facility] Last Admin: 07/10/22 08:06 Dose: 3 ml Documented By: GUILLERMO Labs 07/08/22 05:41 07/10/22 05:42 Labs: Laboratory Results - last 24 hr 07/09/22 07/09/22 07/09/22 09:54 11:36 16:11 Estim Creat Clear Calc Estimated GFR POC Glucose 211 H 230 H Random Vancomycin 4.9 L 07/09/22 07/10/22 07/10/22 20:41 05:42 07:01 Estim Creat Clear Calc 89.4 Estimated GFR > 60 POC Glucose 245 H 162 H Random Vancomycin 07/10/22 09:27 Estim Creat Clear Calc Estimated GFR POC Glucose Random Vancomycin 11.1 L Microbiology Microbiology Results: Microbiology 07/07/22 14:52 Blood Culture - Preliminary Blood - Venous No growth after 48 hours. 07/07/22 14:52 Blood Culture - Preliminary Blood - Venous No growth after 48 hours. Assessment and Plan (1) Osteomyelitis of great toe of left foot: Status: Acute (2) PAF (paroxysmal atrial fibrillation): Status: Acute Plan This is a 62-year-old male with a past medical history notable for atrial fibrillation anticoagulated on Xarelto, hypertension, hyperlipidemia, rsp-ifyhxtq-biykfzfov type 2 diabetes mellitus with a history of PUD. Osteomyelitis/wet gangrenous left great toe Nonhealing diabetic ulcer of left foot was seen by vascular surgeon Dr. Duarte in the office on 07/01/2022 and recommendations were for a stent to be placed as there was concerns for wound penetration to bone at that time. Dr. Washington following the patient, Continue IV antibiotics-Zosyn and vancomycin ordered vascular surgery consulted await blood cultures. Follow vancomycin trough PAD Continue statin and apixaban Pending vascular evaluation Kyi-ojlqddg-iepalpita diabetes mellitus insulin sliding scale. Hypoglycemia protocol in place diabetic diet. Paroxysmal Atrial fibrillation Hypercoagulability secondary to atrial fibrillation apixaban 5 mg p.o. b.i.d.-oral anticoagulation to be held and patient will be given subcu Lovenox/therapeutic dose Hypertension antihypertensives and oral diuretic were resumed Hyperlipidemia statin continued. DVT prophylaxis Lovenox therapeutic dose HCP/person to contact is patient's sister Aide Calixto, The patient will continue to need overnight hospital stay for treatment of osteomyelitis pending vascular surgery evaluation and possible intervention Time Spent With Patient Time: Total time managing care of this patient today ____ minutes. Quality Stroke Does the patient have a stroke diagnosis?: No VTE Prior VTE?: No VTE Risk Level:: Medical - moderate - high VTE Device Contraindication: N/A - Device Ordered VTE Drug Contraindication: N/A - Med Ordered
[2022-07-10 11:15] LABS: Glucose, Whole Blood 233 mg/dL (60-115)
[2022-07-10 15:57] VITALS: BP 112/67; PULSE 86; RESP 18; TEMP 36.8; O2SAT 97
[2022-07-10 16:10] LABS: Glucose, Whole Blood 263 mg/dL (60-115)
[2022-07-10 20:00] VITALS: BP 128/59; PULSE 82; RESP 17; TEMP 36.7; O2SAT 95
[2022-07-10 20:15] LABS: Glucose, Whole Blood 238 mg/dL (60-115)
[2022-07-11] MEDS: vancomycin HCL 1,250 MG in 0.9 % Sodium Chloride 250 ML 166.67 MG IV ×2 (00:03→11:34)
[2022-07-11] MEDS: 0.9 % Sodium Chloride Flush 3 ML SYRINGE IVFLUSH ×4 (00:03→19:47)
[2022-07-11] MEDS: Piperacillin Sodium/Tazobactam 3.375 GM in 0.9 % Sodium Chloride 50 ML IV ×4 (03:20→20:26)
[2022-07-11 03:48] VITALS: BP 114/64; PULSE 85; RESP 18; TEMP 36.4; O2SAT 95
[2022-07-11] MEDS: Enoxaparin Sodium 150 MG/ML SYRINGE 135 MG SUBCUT ×2 (06:02→19:40)
[2022-07-11 06:51] LABS: Creatinine Clr Calc Pharmacy 98.9; Estimated Glomerular Filt Rate > 60
[2022-07-11 07:29] VITALS: BP 128/68; PULSE 84; RESP 18; TEMP 36.8; O2SAT 95
[2022-07-11 07:46] LABS: Glucose, Whole Blood 144 mg/dL (60-115)
[2022-07-11] MEDS: Docusate Sodium 100 MG CAPSULE PO ×2 (10:51→19:41)
[2022-07-11] MEDS: dilTIAZem HCL CD 240 MG CAP.ER.DEG PO (10:51)
[2022-07-11] MEDS: Gabapentin 300 MG CAPSULE PO ×2 (10:51→20:31)
[2022-07-11] MEDS: Atorvastatin Calcium 20 MG TABLET PO (10:52)
[2022-07-11] MEDS: Amiodarone HCL 200 MG TABLET PO (10:52)
[2022-07-11 11:02] LABS: Vancomycin Trough 11.7 mcg/mL (10.0-20.0)
--- NOTE | 2022-07-11 11:14 | HO.PM.IMPN ---
Subjective Subjective Date of Service: 07/11/22 Interval History: Seen and evaluated this morning Report pain is under good control but still having drainage from the wound No fever, chills or shortness of breath No other overnight events Review of Systems A complete 12 point review of systems was performed and are negative if not noted in HPI. Physical Exam Vital Signs: Vital Signs: Last Vital Signs Temp 98.2 F 07/11/22 07:29 Pulse 84 07/11/22 07:29 Resp 18 07/11/22 07:29 BP 128/68 07/11/22 07:29 Pulse Ox 95 07/11/22 07:29 O2 Del Method 07/11/22 07:29 BMI result Body Mass Index 47.0 Const: Other: Constitutional : Awake, interactive, not in distress Neck : Normal inspection, Supple Cardiovascular : RRR, no JVP, no lower extremity edema Respiratory : good bilateral air entry, no crackles, wheezes or rhonchi Gastrointestinal: soft, lax, Normal bowel sounds, Non tender Skin : Warm, Dry Extremities: Great left toe with nonhealing ulcer to the medial aspect with extension to bone, cellulitic in appearance, erythema surrounding great left toe with decrease pulses. Neurological : Alert & oriented x3, No focal deficit , CN 2-12 within normal Objective Data Active Medications Acetaminophen (Acetaminophen 325 Mg Tablet) 650 mg PO Q6H PRN PRN Reason: Pain, Mild (Pain Scale 1-3) Amiodarone HCl (Amiodarone Hcl 200 Mg Tablet) 200 mg PO DAILY [facility] Last Admin: 07/11/22 10:52 Dose: 200 mg Documented By: HANY Atorvastatin Calcium (Atorvastatin Calcium 20 Mg Tablet) 20 mg PO DAILY [facility] Last Admin: 07/11/22 10:52 Dose: 20 mg Documented By: HANY Dextrose (Dextrose 50 % 25 Gm/50 Ml Syringe) 25 gm IVPUSH Q15M PRN; Protocol PRN Reason: per Hypoglycemia Standing Ord. Diltiazem HCl (Diltiazem Hcl Cd 240 Mg Cap.Er.Deg) 240 mg PO DAILY [facility]; Protocol Last Admin: 07/11/22 10:51 Dose: 240 mg Documented By: HANY Docusate Sodium (Docusate Sodium 100 Mg Capsule) 100 mg PO BID [facility] Last Admin: 07/11/22 10:51 Dose: 100 mg Documented By: HANY Enoxaparin Sodium (Enoxaparin Sodium 150 Mg/Ml Syringe) 135 mg 1 mg/kg (135 mg) SUBCUT Q12H [facility] Last Admin: 07/11/22 06:02 Dose: 135 mg Documented By: ASTRID Fluticasone Propionate (Fluticasone Propionate Nasal 16 Gm [place]) 1 spray NOSTRIL-B BID PRN PRN Reason: congestion Gabapentin (Gabapentin 300 Mg Capsule) 300 mg PO BID [facility] Last Admin: 07/11/22 10:51 Dose: 300 mg Documented By: HANY Glucose (Glucose Gel 15 Gm Gel..Gram.) 15 gm PO Q15M PRN; Protocol PRN Reason: per Hypoglycemia Standing Ord. Piperacillin Sod/Tazobactam (Sod 3.375 gm/ Sodium Chloride) 50 mls @ 100 mls/hr IV Q6H [facility] Last Admin: 07/11/22 10:52 Dose: 100 mls/hr Documented By: HANY Vancomycin HCl 1,250 mg/ (Sodium Chloride) 250 mls @ 166.667 mls/hr IV Q12H [facility] Last Infusion: 07/11/22 01:33 Dose: 0 mls/hr Documented By: ASTRID Insulin Human Lispro (Insulin Lispro 100 Unit/Ml 3 Ml Vial) 0 unit SUBCUT QIDACHS [facility]; Protocol Last Admin: 07/11/22 07:55 Dose: Not Given Documented By: SHAHRAM Non-Admin Reason: No Insulin Coverage Pharmacy Consult (Consult Rx Perform Med Rec) 1 each MISCELLANE ONCE PRN PRN Reason: Consult order Pharmacy Consult (Consult Rx Perform Med Rec) 1 each MISCELLANE ONCE PRN PRN Reason: Consult order Pharmacy Consult (Consult Rx Vancomycin Dosing) 1 each MISCELLANE DAILY PRN PRN Reason: Consult order Senna (Sennosides 8.6 Mg Tablet) 17.2 mg PO BEDTIME PRN PRN Reason: Constipation Sodium Chloride (0.9 % Sodium Chloride Flush 3 Ml Syringe) 3 ml IVFLUSH QSHIFT [facility] Last Admin: 07/11/22 10:52 Dose: 3 ml Documented By: HANY Labs 07/08/22 05:41 07/11/22 06:02 Labs: Laboratory Results - last 24 hr 07/10/22 07/10/22 07/10/22 11:09 16:03 20:11 Estim Creat Clear Calc Estimated GFR POC Glucose 233 H 263 H 238 H Vancomycin Trough 07/11/22 07/11/22 07/11/22 06:02 07:33 10:26 Estim Creat Clear Calc 98.9 Estimated GFR > 60 POC Glucose 144 H Vancomycin Trough 11.7 Assessment and Plan (1) PAF (paroxysmal atrial fibrillation): Status: Acute (2) Osteomyelitis of great toe of left foot: Status: Acute Plan This is a 62-year-old male with a past medical history notable for atrial fibrillation anticoagulated on Xarelto, hypertension, hyperlipidemia, hpn-wgfctzn-pbllselhs type 2 diabetes mellitus with a history of PUD. Osteomyelitis/wet gangrenous left great toe Nonhealing diabetic ulcer of left foot was seen by vascular surgeon Dr. Duarte in the office on 07/01/2022 and recommendations were for a stent to be placed as there was concerns for wound penetration to bone at that time. Dr. Washington following the patient, Continue IV antibiotics-Zosyn and vancomycin ordered vascular surgery consulted negative blood cultures. Follow vancomycin trough PAD Continue statin and apixaban Pending vascular evaluation Zzj-tzapiti-uomzlqzjf diabetes mellitus insulin sliding scale. Hypoglycemia protocol in place diabetic diet. Paroxysmal Atrial fibrillation Hypercoagulability secondary to atrial fibrillation apixaban 5 mg p.o. b.i.d.-oral anticoagulation to be held and patient will be given subcu Lovenox/therapeutic dose Hypertension antihypertensives and oral diuretic were resumed Hyperlipidemia statin continued. DVT prophylaxis Lovenox therapeutic dose HCP/person to contact is patient's sister Aide Calixto, The patient will continue to need overnight hospital stay for treatment of osteomyelitis pending vascular surgery evaluation and possible intervention Time Spent With Patient Time: Total time managing care of this patient today ____ minutes. Quality Stroke Does the patient have a stroke diagnosis?: No VTE Prior VTE?: No VTE Risk Level:: Medical - moderate - high VTE Device Contraindication: N/A - Device Ordered VTE Drug Contraindication: N/A - Med Ordered
[2022-07-11 11:50] LABS: Glucose, Whole Blood 266 mg/dL (60-115)
[2022-07-11] MEDS: Insulin Lispro 100 UNIT/ML 3 ML VIAL SUBCUT ×3 (12:28→20:32)
[2022-07-11 15:40] LABS: Glucose, Whole Blood 227 mg/dL (60-115)
[2022-07-11 16:00] VITALS: BP 129/64; PULSE 81; RESP 18; TEMP 36.2; O2SAT 96
[2022-07-11 19:26] VITALS: BP 139/74; PULSE 82; RESP 17; TEMP 36.6; O2SAT 95
[2022-07-11 20:01] LABS: Glucose, Whole Blood 253 mg/dL (60-115)
[2022-07-11] MEDS: vancomycin HCL 1,500 MG in 0.9 % Sodium Chloride 500 ML 333.33 MG IV (23:35)
[2022-07-12] MEDS: Piperacillin Sodium/Tazobactam 3.375 GM in 0.9 % Sodium Chloride 50 ML IV ×4 (02:16→20:48)
[2022-07-12 03:25] VITALS: BP 111/61; PULSE 69; RESP 17; TEMP 36; O2SAT 95
[2022-07-12] MEDS: Enoxaparin Sodium 150 MG/ML SYRINGE 135 MG SUBCUT ×2 (06:02→18:08)
[2022-07-12 06:48] LABS: Estimated Glomerular Filt Rate > 60
[2022-07-12 07:39] LABS: Glucose, Whole Blood 136 mg/dL (60-115)
[2022-07-12 08:00] VITALS: BP 123/64; PULSE 82; RESP 18; TEMP 36.7; O2SAT 96
[2022-07-12] MEDS: Atorvastatin Calcium 20 MG TABLET PO (08:52)
[2022-07-12] MEDS: dilTIAZem HCL CD 240 MG CAP.ER.DEG PO (08:52)
[2022-07-12] MEDS: Amiodarone HCL 200 MG TABLET PO (08:52)
[2022-07-12] MEDS: Gabapentin 300 MG CAPSULE PO ×2 (08:52→20:48)
[2022-07-12] MEDS: Docusate Sodium 100 MG CAPSULE PO ×2 (08:52→20:50)
--- NOTE | 2022-07-12 10:17 | P.CDIC_ITS ---
CDI Concurrent Query Documentation Clarification: PHYSICIAN'S DOCUMENTATION REQUEST Date of Query: 07/12/22 1018 Patient Name: Delgado Vee Admit Date: 07/07/22 Dear Doctor, A review of the medical record indicates additional documentation may be needed. Please review below and update the documentation accordingly. Clinical Indicators: Is there a diagnosis that correlates with the findings below: Risk Factors/Clinical Indicators/Treatments Labs: POC on 07/10: 263 POC in 07/11: 266 Home medications: Januvia 100mg daily Glipizide 5 mg daily Please clarify the following regarding Diabetes Mellitus (DM): * Hyperglycemia * No complications of DM * Other complication ? please specify * Unable to determine Use of terms such as suspected, likely, concern for, or probable (associated with a specific diagnosis that is being evaluated, monitored, or treated as if it exists) are acceptable and can be coded in the inpatient setting, when documented at the time of discharge. Thank you, Mayra Drake MS, RN, CCRN Extension: [phone] Please use your independent medical judgment in providing your response. THIS QUERY IS PART OF THE PERMANENT MEDICAL RECORD Provider Response: Other Other Diagnosis: hyperglycemia in DMII
[2022-07-12 10:49] LABS: Vancomycin Trough 14.8 mcg/mL (10.0-20.0)
--- NOTE | 2022-07-12 11:00 | HE.PHANOTE ---
Vancomycin Dosing Patient's level is therapuetic at 14.8. Will continue current regimen. Next trough is scheduled for 07/13 @ 1000. Yamini TiptonD
[2022-07-12 11:14] LABS: Glucose, Whole Blood 287 mg/dL (60-115)
[2022-07-12] MEDS: vancomycin HCL 1,500 MG in 0.9 % Sodium Chloride 500 ML 333.33 MG IV ×2 (11:47→23:30)
[2022-07-12] MEDS: Insulin Lispro 100 UNIT/ML 3 ML VIAL SUBCUT ×3 (11:50→20:48)
--- NOTE | 2022-07-12 11:53 | P.PNIM_ITS ---
Subjective Subjective Date of Service: 07/12/22 Interval History: Seen and evaluated this morning Report pain is under good control, cultures negative No other overnight events Review of Systems Review of Systems: Yes all other systems are reviewed and are negative Physical Exam Vital Signs: Vital Signs: Last Vital Signs Temp 98.1 F 07/12/22 08:00 Pulse 82 07/12/22 08:00 Resp 18 07/12/22 08:00 BP 123/64 07/12/22 08:00 Pulse Ox 96 07/12/22 08:00 O2 Del Method 07/12/22 08:00 BMI result Body Mass Index 47.0 Const: Other: Constitutional : Awake, interactive, not in distress Neck : Normal inspection, Supple Cardiovascular : RRR, no JVP, no lower extremity edema Respiratory : good bilateral air entry, no wheezes or rhonchi Gastrointestinal: soft, lax, Normal bowel sounds, Non tender Skin : Warm, Dry Extremities: Great left toe with nonhealing ulcer to the medial aspect with extension to bone, cellulitic in appearance, erythema surrounding great left toe with decrease pulses. Neurological : Alert & oriented x3, No focal deficit Objective Data Active Medications Acetaminophen (Acetaminophen 325 Mg Tablet) 650 mg PO Q6H PRN PRN Reason: Pain, Mild (Pain Scale 1-3) Amiodarone HCl (Amiodarone Hcl 200 Mg Tablet) 200 mg PO DAILY [facility] Last Admin: 07/12/22 08:52 Dose: 200 mg Documented By: MORIAH Atorvastatin Calcium (Atorvastatin Calcium 20 Mg Tablet) 20 mg PO DAILY [facility] Last Admin: 07/12/22 08:52 Dose: 20 mg Documented By: MORIAH Dextrose (Dextrose 50 % 25 Gm/50 Ml Syringe) 25 gm IVPUSH Q15M PRN; Protocol PRN Reason: per Hypoglycemia Standing Ord. Diltiazem HCl (Diltiazem Hcl Cd 240 Mg Cap.Er.Deg) 240 mg PO DAILY [facility]; Protocol Last Admin: 07/12/22 08:52 Dose: 240 mg Documented By: MORIAH Docusate Sodium (Docusate Sodium 100 Mg Capsule) 100 mg PO BID [facility] Last Admin: 07/12/22 08:52 Dose: 100 mg Documented By: MORIAH Enoxaparin Sodium (Enoxaparin Sodium 150 Mg/Ml Syringe) 135 mg 1 mg/kg (135 mg) SUBCUT Q12H [facility] Last Admin: 07/12/22 06:02 Dose: 135 mg Documented By: JEFE Fluticasone Propionate (Fluticasone Propionate Nasal 16 Gm [place]) 1 spray NOS TRIL-B BID PRN PRN Reason: congestion Gabapentin (Gabapentin 300 Mg Capsule) 300 mg PO BID [facility] Last Admin: 07/12/22 08:52 Dose: 300 mg Documented By: MORIAH Glucose (Glucose Gel 15 Gm Gel..Gram.) 15 gm PO Q15M PRN; Protocol PRN Reason: per Hypoglycemia Standing Ord. Piperacillin Sod/Tazobactam (Sod 3.375 gm/ Sodium Chloride) 50 mls @ 100 mls/hr IV Q6H [facility] Last Infusion: 07/12/22 09:55 Dose: 0 mls/hr Documented By: MORIAH Vancomycin HCl 1,500 mg/ (Sodium Chloride) 500 mls @ 333.333 mls/hr IV Q12H [facility] Last Admin: 07/12/22 11:47 Dose: 333.33 mls/hr Documented By: MORIAH Insulin Human Lispro (Insulin Lispro 100 Unit/Ml 3 Ml Vial) 0 unit SUBCUT QIDACHS [facility]; Protocol Last Admin: 07/12/22 11:50 Dose: 6 unit Documented By: MORIAH Pharmacy Consult (Consult Rx Perform Med Rec) 1 each MISCELLANE ONCE PRN PRN Reason: Consult order Pharmacy Consult (Consult Rx Perform Med Rec) 1 each MISCELLANE ONCE PRN PRN Reason: Consult order Pharmacy Consult (Consult Rx Vancomycin Dosing) 1 each MISCELLANE DAILY PRN PRN Reason: Consult order Senna (Sennosides 8.6 Mg Tablet) 17.2 mg PO BEDTIME PRN PRN Reason: Constipation Sodium Chloride (0.9 % Sodium Chloride Flush 3 Ml Syringe) 3 ml IVFLUSH QSHIFT [facility] Last Admin: 07/12/22 08:58 Dose: Not Given Documented By: MORIAH Non-Admin Reason: IV Running Labs 07/08/22 05:41 07/12/22 05:45 Labs: Laboratory Results - last 24 hr 07/11/22 07/11/22 07/12/22 15:36 19:47 05:45 Estim Creat Clear Calc 97.0 Estimated GFR > 60 POC Glucose 227 H 253 H Vancomycin Trough 07/12/22 07/12/22 07/12/22 07:35 09:57 11:04 Estim Creat Clear Calc Estimated GFR POC Glucose 136 H 287 H Vancomycin Trough 14.8 Assessment and Plan (1) PAD (peripheral artery disease): Status: Acute (2) Osteomyelitis of great toe of left foot: Status: Acute Plan This is a 62-year-old male with a past medical history notable for atrial fibrillation anticoagulated on Xarelto, hypertension, hyperlipidemia, [id number] type 2 diabetes mellitus with a history of PUD. Osteomyelitis/wet gangrenous left great toe Nonhealing diabetic ulcer of left foot was seen by vascular surgeon Dr. Duarte in the office on 07/01/2022 and recommendations were for a stent to be placed as there was concerns for wound penetration to bone at that time. Continue IV antibiotics-Zosyn and vancomycin ordered Pending ID & vascular surgery consults negative blood cultures. Follow vancomycin trough PAD Continue statin and apixaban Pending vascular evaluation Hyperglycemia in [id number]-[id number] diabetes mellitus insulin sliding scale. Hypoglycemia protocol in place diabetic diet. Paroxysmal Atrial fibrillation Hypercoagulability secondary to atrial fibrillation apixaban 5 mg p.o. b.i.d.-oral anticoagulation to be held and patient will be given subcu Lovenox/therapeutic dose Hypertension antihypertensives and oral diuretic were resumed Hyperlipidemia statin continued. DVT prophylaxis Lovenox therapeutic dose HCP/person to contact is patient's sister Aide Calixto, The patient will continue to need overnight hospital stay for treatment of o steomyelitis pending vascular surgery evaluation and possible intervention Time Spent With Patient Time: Total time managing care of this patient today ____ minutes. Quality Stroke Does the patient have a stroke diagnosis?: No VTE Prior VTE?: No VTE Risk Level:: Medical - moderate - high VTE Device Contraindication: N/A - Device Ordered VTE Drug Contraindication: N/A - Med Ordered
--- NOTE | 2022-07-12 15:34 | PM.CNGS ---
History of Present Illness Consult details Consult date: 07/12/22 Reason for consult: wound care Narrative: Very pleasant 62-year-old gentleman who had actually seen me in the office in the past for a nonhealing left leg for nonhealing ulcer. He actually seen us in the [facility] as a [facility]. At that time he was requiring endovascular intervention in order to salvage the foot. He politely refused at that time. He stated that he wanted to think about it. He has been subsequently admitted to the hospital. He now presents to us for vascular evaluation. Review of Systems Review of Systems: Yes all other systems are reviewed and are negative Constitutional: Constitutional: Reports no additional constitutional complaints ENT: Reports Normal hearing present Cardiovascular: Cardiovascular: Denies chest pain, Denies chest pain at rest, Denies chest pain with activity and Denies pedal edema Respiratory: Respiratory: Denies cough Gastrointestinal: Gastrointestinal: Denies abdominal pain Musculoskeletal: Musculoskeletal: Denies abnormal gait, Denies muscle cramps and Denies radiating pain into limb Integumentary/Breasts: Skin/Breast: Denies skin ulcer and Denies wounds Neurologic: Reports Normal hearing present and Denies abnormal gait Psychiatric: Psychiatric: Reports no additional psychiatric complaints [facility] Past Medical History Medical History (Updated 07/10/22 @ 11:12 by Agustina Steve MD) Atrial fibrillation Diabetes Diabetes mellitus type II, non insulin dependent Diabetic foot ulcer associated with type 2 diabetes mellitus HLD (hyperlipidemia) HTN (hypertension) PAD (peripheral artery disease) Family History Family History (Updated 07/07/22 @ 17:43 by DARELL Puentes) Other HTN (hypertension) Social History Social History (Updated 07/07/22 @ 17:45 by DARELL Puentes) Household Members: None Housing: Condominium Do you presently have visiting nurse or other home services: No Patient Tobacco Use Status: Never used Tobacco Use of substances other than those prescribed or required for medical reasons: No Currently Displaying Signs/Symptoms of Drug Intoxication Withdrawal: No Have you been hit, kicked, punched, or otherwise hurt by someone within the past year? If so, by whom?: No Do you feel safe in your current relationship?: No Current Relationship Is there a partner from a previous relationship who is making you feel unsafe now?: No Are you made to feel afraid or neglected: No Advance Directives: No Do you have thoughts of harming others: None Do you have a plan to hurt others: No Plan Recently lost weight without trying: No Nutrition Risks: No Nutritional Risk Poor oral hygiene: No service: No Current occupational status: employed Meds Allergies Allergy/AdvReac Type Severity Reaction Status Date / Time No Known Allergies Allergy Verified 07/07/22 13:07 Active Medications: Current Medications Acetaminophen (Acetaminophen 325 Mg Tablet) 650 mg PO Q6H PRN PRN Reason: Pain, Mild (Pain Scale 1-3) Amiodarone HCl (Amiodarone Hcl 200 Mg Tablet) 200 mg PO DAILY [facility] Last Admin: 07/12/22 08:52 Dose: 200 mg Atorvastatin Calcium (Atorvastatin Calcium 20 Mg Tablet) 20 mg PO DAILY [facility] Last Admin: 07/12/22 08:52 Dose: 20 mg Dextrose (Dextrose 50 % 25 Gm/50 Ml Syringe) 25 gm IVPUSH Q15M PRN; Protocol PRN Reason: per Hypoglycemia Standing Ord. Diltiazem HCl (Diltiazem Hcl Cd 240 Mg Cap.Er.Deg) 240 mg PO DAILY [facility]; Protocol Last Admin: 07/12/22 08:52 Dose: 240 mg Docusate Sodium (Docusate Sodium 100 Mg Capsule) 100 mg PO BID [facility] Last Admin: 07/12/22 08:52 Dose: 100 mg Enoxaparin Sodium (Enoxaparin Sodium 150 Mg/Ml Syringe) 135 mg 1 mg/kg (135 mg) SUBCUT Q12H [facility] Last Admin: 07/12/22 06:02 Dose: 135 mg Fluticasone Propionate (Fluticasone Propionate Nasal 16 Gm [place]) 1 spray NOSTRIL-B BID PRN PRN Reason: congestion Gabapentin (Gabapentin 300 Mg Capsule) 300 mg PO BID [facility] Last Admin: 07/12/22 08:52 Dose: 300 mg Glucose (Glucose Gel 15 Gm Gel..Gram.) 15 gm PO Q15M PRN; Protocol PRN Reason: per Hypoglycemia Standing Ord. Piperacillin Sod/Tazobactam (Sod 3.375 gm/ Sodium Chloride) 50 mls @ 100 mls/hr IV Q6H [facility] Last Infusion: 07/12/22 14:45 Dose: Infused Vancomycin HCl 1,500 mg/ (Sodium Chloride) 500 mls @ 333.333 mls/hr IV Q12H [facility] Last Infusion: 07/12/22 13:26 Dose: Infused Insulin Human Lispro (Insulin Lispro 100 Unit/Ml 3 Ml Vial) 0 unit SUBCUT QIDACHKajal [facility]; Protocol Last Admin: 07/12/22 11:50 Dose: 6 unit Pharmacy Consult (Consult Rx Perform Med Rec) 1 each MISCELLANE ONCE PRN PRN Reason: Consult order Pharmacy Consult (Consult Rx Perform Med Rec) 1 each MISCELLANE ONCE PRN PRN Reason: Consult order Pharmacy Consult (Consult Rx Vancomycin Dosing) 1 each MISCELLANE DAILY PRN PRN Reason: Consult order Senna (Sennosides 8.6 Mg Tablet) 17.2 mg PO BEDTIME PRN PRN Reason: Constipation Sodium Chloride (0.9 % Sodium Chloride Flush 3 Ml Syringe) 3 ml IVFLUSH [facility] Last Admin: 07/12/22 08:58 Dose: Not Given Home Medications Medication Instructions Recorded Confirmed Last Taken Type amiodarone 200 mg tablet 200 mg PO DAILY 07/01/22 07/07/22 07/07/22 History apixaban 5 mg tablet (Eliquis) 5 mg PO BID 07/01/22 07/07/22 07/07/22 History atorvastatin 20 mg tablet 20 mg PO DAILY 07/01/22 07/07/22 07/07/22 History diltiazem HCl 240 mg 240 mg PO DAILY 07/01/22 07/07/22 07/07/22 History capsule,extended release 24 hr doxycycline hyclate 100 mg capsule 100 mg PO BID 07/01/22 07/07/22 07/07/22 History furosemide 40 mg tablet 40 mg PO DAILY 07/01/22 07/07/22 07/07/22 History gabapentin 300 mg capsule 300 mg PO BID 07/01/22 07/07/22 07/07/22 History glipizide 5 mg tablet, extended 10 mg PO DAILY 07/01/22 07/07/22 07/07/22 History release 24 hr sitagliptin phosphate 100 mg 100 mg PO DAILY 07/01/22 07/07/22 07/07/22 History tablet (Januvia) fluticasone propionate 50 1 spray intranasal BID PRN 07/07/22 07/07/22 Unknown History mcg/actuation nasal congestion spray,suspension Physical Exam Vital Signs: Vital Signs: Last Vital Signs Temp 98 F 07/12/22 15:30 Pulse 72 07/12/22 15:30 Resp 17 07/12/22 15:30 BP 176/77 H 07/12/22 15:30 Pulse Ox 97 07/12/22 15:30 O2 Del Method 07/12/22 15:30 BMI result Body Mass Index 47.0 Const: General: cooperative, healthy appearing and comfortable Orientation/consciousness: oriented to person, oriented to place and oriented to time HEENT: Head: Yes normal to inspection Neck: Neck: Yes normal visual inspection Carotids: no bruits Chest: Chest palpation & inspection: normal inspection of the chest Resp: Effort & Inspection: normal respiratory effort and able to speak in complete sentences Auscultation: clear to auscultation bilaterally, no crackles, no rales, no rhonchi and no wheezes Cardio: Other: Bilateral DP signals Rate: regular rate Rhythm: regular rhythm Heart sounds: S1 normal heart sound present and S2 normal heart sound present Bruits: no carotid bruits GI: Inspection: Yes normal to inspection Skin: Wounds: wounds noted (Plantar aspect left great toe) Hair: normal Neuro: General: oriented to person, oriented to place and oriented to time Cranial nerves: Yes CN's II-XII intact bilaterally and Yes Normal hearing present Cognition (Neuro): normal cognition Motor exam (neuro): 5/5 motor strength present throughout Extrem: Other: venous exam: No significant superficial varicosities or spider telangiectasias, minimal edema General: No clubbing, No cyanosis and No edema Psych: Appearance: grossly normal Mental Status: mental status grossly normal Speech and movement: Normal speech and movement present Results Labs 07/08/22 05:41 07/12/22 05:45 Labs: Abnormal lab results 07/11/22 07/11/22 07/12/22 Range/Units 15:36 19:47 07:35 POC Glucose 227 H 253 H 136 H (60-115) mg/dL 07/12/22 Range/Units 11:04 POC Glucose 287 H (60-115) mg/dL BMP 07/12/22 05:45 Creatinine 1.05 Urine 07/07/22 Range/Units 21:47 Urine Color Yellow Urine Appearance Clear Urine pH 6.0 (5.0-9.0) Ur Specific [place] 1.015 (1.005-1.025) Urine Protein Negative (Neg-Trace) mg/dL Urine Glucose (UA) Negative (Negative) mg/dL All other labs normal. Assessment and Plan (1) PAD (peripheral artery disease): Status: Acute Plan In short patient has a nonhealing left great toe. He will require endovascular intervention. I will discuss this with him again tomorrow and will plan for potential intervention on Tuesday. In addition he is at high risk of losing that toe. This was discussed with the patient. We will continue to follow with you. Thank you for allowing us to assist in his care. If there are any questions or concerns please do not hesitate to contact us. Time Spent With Patient Time: Total time managing care of this patient today ____ minutes. Procedures Date of Service Date of Service: 07/12/22
--- NOTE | 2022-07-12 15:37 | W.PM.IDCN ---
History of Present Illness Data of Consult Service Date: 07/12/22 Requesting physician: Agustina Steve Primary Care Provider: Loretta Guevara MD [facility] Reason for consult: left foot infection He developed worsening left foot redness and swelling over last month. He saw [facility] and then Dr Duarte of Vascular due to concern over vascular disesa. He has wound probe to bone and there is concern over MRSA but negative blood culture. He is on Vancomycin and Zosyn Review of Systems Review of Systems: Yes all other systems are reviewed and are negative [facility] Past Medical History Medical History Atrial fibrillation Diabetes Diabetes mellitus type II, non insulin dependent Diabetic foot ulcer associated with type 2 diabetes mellitus HLD (hyperlipidemia) HTN (hypertension) PAD (peripheral artery disease) Family History Family History Other HTN (hypertension) Family history: reviewed and not pertinent Social History Social History Household Members: None Housing: Condominium Do you presently have visiting nurse or other home services: No Patient Tobacco Use Status: Never used Tobacco Use of substances other than those prescribed or required for medical reasons: No Currently Displaying Signs/Symptoms of Drug Intoxication Withdrawal: No Have you been hit, kicked, punched, or otherwise hurt by someone within the past year? If so, by whom?: No Do you feel safe in your current relationship?: No Current Relationship Is there a partner from a previous relationship who is making you feel unsafe now?: No Are you made to feel afraid or neglected: No Advance Directives: No Do you have thoughts of harming others: None Do you have a plan to hurt others: No Plan Recently lost weight without trying: No Nutrition Risks: No Nutritional Risk Poor oral hygiene: No service: No Current occupational status: employed Meds Allergies Allergy/AdvReac Type Severity Reaction Status Date / Time No Known Allergies Allergy Verified 07/07/22 13:07 Active Medications: Current Medications Acetaminophen (Acetaminophen 325 Mg Tablet) 650 mg PO Q6H PRN PRN Reason: Pain, Mild (Pain Scale 1-3) Amiodarone HCl (Amiodarone Hcl 200 Mg Tablet) 200 mg PO DAILY [facility] Last Admin: 07/12/22 08:52 Dose: 200 mg Atorvastatin Calcium (Atorvastatin Calcium 20 Mg Tablet) 20 mg PO DAILY [facility] Last Admin: 07/12/22 08:52 Dose: 20 mg Dextrose (Dextrose 50 % 25 Gm/50 Ml Syringe) 25 gm IVPUSH Q15M PRN; Protocol PRN Reason: per Hypoglycemia Standing Ord. Diltiazem HCl (Diltiazem Hcl Cd 240 Mg Cap.Er.Deg) 240 mg PO DAILY [facility]; Protocol Last Admin: 07/12/22 08:52 Dose: 240 mg Docusate Sodium (Docusate Sodium 100 Mg Capsule) 100 mg PO BID [facility] Last Admin: 07/12/22 08:52 Dose: 100 mg Enoxaparin Sodium (Enoxaparin Sodium 150 Mg/Ml Syringe) 135 mg 1 mg/kg (135 mg) SUBCUT Q12H [facility] Last Admin: 07/12/22 06:02 Dose: 135 mg Fluticasone Propionate (Fluticasone Propionate Nasal 16 Gm [place]) 1 spray NOSTRIL-B BID PRN PRN Reason: congestion Gabapentin (Gabapentin 300 Mg Capsule) 300 mg PO BID [facility] Last Admin: 07/12/22 08:52 Dose: 300 mg Glucose (Glucose Gel 15 Gm Gel..Gram.) 15 gm PO Q15M PRN; Protocol PRN Reason: per Hypoglycemia Standing Ord. Piperacillin Sod/Tazobactam (Sod 3.375 gm/ Sodium Chloride) 50 mls @ 100 mls/hr IV Q6H [facility] Last Infusion: 07/12/22 14:45 Dose: Infused Vancomycin HCl 1,500 mg/ (Sodium Chloride) 500 mls @ 333.333 mls/hr IV Q12H [facility] Last Infusion: 07/12/22 13:26 Dose: Infused Insulin Human Lispro (Insulin Lispro 100 Unit/Ml 3 Ml Vial) 0 unit SUBCUT QIDACHS [facility]; Protocol Last Admin: 07/12/22 11:50 Dose: 6 unit Pharmacy Consult (Consult Rx Perform Med Rec) 1 each MISCELLANE ONCE PRN PRN Reason: Consult order Pharmacy Consult (Consult Rx Perform Med Rec) 1 each MISCELLANE ONCE PRN PRN Reason: Consult order Pharmacy Consult (Consult Rx Vancomycin Dosing) 1 each MISCELLANE DAILY PRN PRN Reason: Consult order Senna (Sennosides 8.6 Mg Tablet) 17.2 mg PO BEDTIME PRN PRN Reason: Constipation Sodium Chloride (0.9 % Sodium Chloride Flush 3 Ml Syringe) 3 ml IVFLUSH QSHIFT [facility] Last Admin: 07/12/22 08:58 Dose: Not Given Home Medications Medication Instructions Recorded Confirmed Last Taken Type amiodarone 200 mg tablet 200 mg PO DAILY 07/01/22 07/07/22 07/07/22 History apixaban 5 mg tablet (Eliquis) 5 mg PO BID 07/01/22 07/07/22 07/07/22 History atorvastatin 20 mg tablet 20 mg PO DAILY 07/01/22 07/07/22 07/07/22 History diltiazem HCl 240 mg 240 mg PO DAILY 07/01/22 07/07/22 07/07/22 History capsule,extended release 24 hr doxycycline hyclate 100 mg capsule 100 mg PO BID 07/01/22 07/07/22 07/07/22 History furosemide 40 mg tablet 40 mg PO DAILY 07/01/22 07/07/22 07/07/22 History gabapentin 300 mg capsule 300 mg PO BID 07/01/22 07/07/22 07/07/22 History glipizide 5 mg tablet, extended 10 mg PO DAILY 07/01/22 07/07/22 07/07/22 History release 24 hr sitagliptin phosphate 100 mg 100 mg PO DAILY 07/01/22 07/07/22 07/07/22 History tablet (Januvia) fluticasone propionate 50 1 spray intranasal BID PRN 07/07/22 07/07/22 Unknown History mcg/actuation nasal congestion spray,suspension Physical Exam Vital Signs: Vital Signs: Last Vital Signs Temp 98 F 07/12/22 15:30 Pulse 72 07/12/22 15:30 Resp 17 07/12/22 15:30 BP 176/77 H 07/12/22 15:30 Pulse Ox 97 07/12/22 15:30 O2 Del Method 07/12/22 15:30 BMI result Body Mass Index 47.0 Extrem: Other: dark toes left foot Results Labs 07/08/22 05:41 07/12/22 05:45 Labs: BMP 07/12/22 05:45 Creatinine 1.05 Microbiology Microbiology Results: Microbiology 07/07/22 14:52 Blood - Venous Blood Culture - Preliminary No growth after 48 hours. 07/07/22 14:52 Blood - Venous Blood Culture - Preliminary No growth after 48 hours. Assessment and Plan (1) Osteomyelitis of great toe of left foot: Status: Acute OM left great toe He has possible staph/strep DM Plan Would continue Vancomycin and Zosyn Likely IV Vancomycin for six weeks with vancomycin trough and creatinine weekly Time Spent With Patient Time: Total time managing care of this patient today ____ minutes.
[2022-07-12 15:45] VITALS: BP 118/57; PULSE 71; RESP 17; TEMP 36.1; O2SAT 96
[2022-07-12 15:51] LABS: Glucose, Whole Blood 222 mg/dL (60-115)
[2022-07-12] MEDS: 0.9 % Sodium Chloride Flush 3 ML SYRINGE IVFLUSH ×2 (17:11→20:55)
[2022-07-12 19:40] VITALS: BP 115/55; PULSE 82; RESP 16; TEMP 36.4; O2SAT 96
[2022-07-12 19:49] LABS: Glucose, Whole Blood 245 mg/dL (60-115)
[2022-07-13] MEDS: Piperacillin Sodium/Tazobactam 3.375 GM in 0.9 % Sodium Chloride 50 ML IV ×4 (02:22→21:20)
[2022-07-13 04:00] VITALS: BP 107/67; PULSE 80; RESP 17; TEMP 36.3; O2SAT 95
[2022-07-13] MEDS: Enoxaparin Sodium 150 MG/ML SYRINGE 135 MG SUBCUT ×2 (06:16→18:17)
[2022-07-13 07:26] LABS: Glucose, Whole Blood 124 mg/dL (60-115)
[2022-07-13 07:56] VITALS: BP 106/63; PULSE 88; RESP 17; TEMP 37.2; O2SAT 93
[2022-07-13] MEDS: 0.9 % Sodium Chloride Flush 3 ML SYRINGE IVFLUSH (08:23)
[2022-07-13] MEDS: Atorvastatin Calcium 20 MG TABLET PO (08:24)
[2022-07-13] MEDS: dilTIAZem HCL CD 240 MG CAP.ER.DEG PO (08:24)
[2022-07-13] MEDS: Amiodarone HCL 200 MG TABLET PO (08:24)
[2022-07-13] MEDS: Docusate Sodium 100 MG CAPSULE PO ×2 (08:24→21:27)
[2022-07-13] MEDS: Gabapentin 300 MG CAPSULE PO ×2 (08:24→21:19)
--- NOTE | 2022-07-13 09:09 | MHC.CM.PN ---
PATIENT DOES NOT HAVE A SNF BENEFIT . REFERRAL TO [facility] TO ASK ABOUT POSSIBLE BED OFFER OUT OF CONTRACT. CM FOLLOWING. PLAN IS ANGIO LIBERTY (07/14/22)
--- NOTE | 2022-07-13 09:35 | HO.VASCPN ---
Subjective Subjective Date of Service: 07/13/22 Patient reports: no new complaints and feels better Interval history: Complex 62-year-old diabetic gentleman presents for follow-up regarding nonhealing left great toe ulcer. He had actually seen me in the office few weeks back. He now presents for follow-up. I had seen him in conjunction with the hospitalist team. Of note family was on telephone at the time of our visit. Physical Exam Vital Signs: Vital Signs: Last Vital Signs Temp 99.0 F 07/13/22 07:56 Pulse 88 07/13/22 07:56 Resp 17 07/13/22 07:56 BP 106/63 07/13/22 07:56 Pulse Ox 93 07/13/22 07:56 O2 Del Method 07/13/22 07:56 BMI result Body Mass Index 47.0 Const: General: cooperative, healthy appearing and no acute distress Orientation/consciousness: oriented to person, oriented to place and oriented to time HEENT: Head: Yes normal to inspection Neck: Carotids: no bruits Chest: Chest palpation & inspection: normal inspection of the chest Resp: Effort & Inspection: normal respiratory effort and able to speak in complete sentences Auscultation: clear to auscultation bilaterally Cardio: Rate: regular rate Heart sounds: S1 normal heart sound present and S2 normal heart sound present GI: Inspection: Yes normal to inspection Skin: General skin exam: no rashes or lesions noted Wounds: wounds noted (Left great toe exposed bone) Neuro: General: oriented to person, oriented to place, oriented to time and CN's II-XI intact bilaterally Extrem: General: Yes normal to inspection, Yes full ROM and Yes no clubbing, cyanosis or edema Psych: Appearance: grossly normal and well kempt Speech and movement: Normal speech and movement present Affect: normal affect Progress Note: A&P Assessment and plan (1) PAD (peripheral artery disease): Status: Acute Assessment and Plan: Patient has a nonhealing left great toe ulcer. The concern here a is that he has this diabetic ulcer that is penetrating to bone and bone is frankly exposed. It is highly unlikely that this will heal and this will most likely require an amputation at some point.. I have discussed the pathophysiology of peripheral vascular disease with the patient. I have also discussed risk factor modification. I have reviewed the patient's arterial testing which reveals left leg below-knee disease. the patient would benefit from a left leg endovascular peripheral angiogram with possible angioplasty, stent, and/or atherectomy. This has been discussed in detail with the patient along with risks, benefits, and complications. This includes but is not limited to bleeding, infection, heart attack, need for emergent surgical repair, limb ischemia, blood vessel damage, bleeding, puncture, kidney injury, bruising, allergic reaction, and skin reaction. The patient demonstrates a clear understanding. We will schedule for tomorrow. Thank you for allowing us to assist in this patient's care. Time Spent With Patient Time: Total time managing care of this patient today ____ minutes. Procedures Date of Service Date of Service: 07/13/22 Quality Stroke Does the patient have a stroke diagnosis?: No VTE Prior VTE?: No VTE Risk Level:: Medical - moderate - high VTE Device Contraindication: N/A - Device Ordered VTE Drug Contraindication: N/A - Med Ordered
[2022-07-13 10:36] LABS: Creatinine Clr Calc Pharmacy 88.6; Estimated Glomerular Filt Rate > 60
[2022-07-13 10:46] LABS: Vancomycin Random 16.5 mcg/mL (15-20)
--- NOTE | 2022-07-13 10:50 | HE.PHANOTE ---
Vancomycin Dosing Patient's level is therapeutic today at 16.5. Will continue current regimen, expected AUC 536 with a trough of 15. Due to slight rise in SCr will get another level after 2 dose on 07/14 @ 1000. Yamini TiptonD
--- NOTE | 2022-07-13 10:59 | P.PNIM_ITS ---
Subjective Subjective Date of Service: 07/13/22 Interval History: Seen and evaluated this morning pain is under good control cultures negative Vascular surgeon to do angiogram tomorrow No other overnight events Review of Systems A complete 12 point review of systems was performed and are negative if not noted in HPI. Physical Exam Vital Signs: Vital Signs: Last Vital Signs Temp 99.0 F 07/13/22 07:56 Pulse 88 07/13/22 07:56 Resp 17 07/13/22 07:56 BP 106/63 07/13/22 07:56 Pulse Ox 93 07/13/22 07:56 O2 Del Method 07/13/22 07:56 BMI result Body Mass Index 47.0 Const: Other: Constitutional : Awake, interactive, not in distress Neck : Normal inspection, Supple Cardiovascular : RRR, no JVP, no lower extremity edema Respiratory : good bilateral air entry, no wheezes or rhonchi Gastrointestinal: soft, lax, Normal bowel sounds, Non tender Skin : Warm, Dry Extremities: Great left toe with nonhealing ulcer to the medial aspect with extension to bone, cellulitic in appearance, erythema surrounding great left toe with decrease pulses. Neurological : Alert & oriented x3, No focal deficit Objective Data Active Medications Acetaminophen (Acetaminophen 325 Mg Tablet) 650 mg PO Q6H PRN PRN Reason: Pain, Mild (Pain Scale 1-3) Amiodarone HCl (Amiodarone Hcl 200 Mg Tablet) 200 mg PO DAILY [facility] Last Admin: 07/13/22 08:24 Dose: 200 mg Documented By: MORIAH Atorvastatin Calcium (Atorvastatin Calcium 20 Mg Tablet) 20 mg PO DAILY [facility] Last Admin: 07/13/22 08:24 Dose: 20 mg Documented By: MORIAH Dextrose (Dextrose 50 % 25 Gm/50 Ml Syringe) 25 gm IVPUSH Q15M PRN; Protocol PRN Reason: per Hypoglycemia Standing Ord. Diltiazem HCl (Diltiazem Hcl Cd 240 Mg Cap.Er.Deg) 240 mg PO DAILY [facility]; Protocol Last Admin: 07/13/22 08:24 Dose: 240 mg Documented By: MORIAH Docusate Sodium (Docusate Sodium 100 Mg Capsule) 100 mg PO BID [facility] Last Admin: 07/13/22 08:24 Dose: 100 mg Documented By: MORIAH Enoxaparin Sodium (Enoxaparin Sodium 150 Mg/Ml Syringe) 135 mg 1 mg/kg (135 mg) SUBCUT Q12H [facility] Last Admin: 07/13/22 06:16 Dose: 135 mg Documented By: JEFE Fluticasone Propionate (Fluticasone Propionate Nasal 16 Gm [place]) 1 spray NOSTRIL-B BID PRN PRN Reason: congestion Gabapentin (Gabapentin 300 Mg Capsule) 300 mg PO BID [facility] Last Admin: 07/13/22 08:24 Dose: 300 mg Documented By: MORIAH Glucose (Glucose Gel 15 Gm Gel..Gram.) 15 gm PO Q15M PRN; Protocol PRN Reason: per Hypoglycemia Standing Ord. Piperacillin Sod/Tazobactam (Sod 3.375 gm/ Sodium Chloride) 50 mls @ 100 mls/hr IV Q6H [facility] Last Infusion: 07/13/22 09:09 Dose: 0 mls/hr Documented By: MORIAH Vancomycin HCl 1,500 mg/ (Sodium Chloride) 500 mls @ 333.333 mls/hr IV Q12H [facility] Last Infusion: 07/13/22 01:05 Dose: 0 mls/hr Documented By: JEFE Sodium Chloride (Ns) 1,000 mls @ 100 mls/hr IVCONT .Q10H [facility] Insulin Human Lispro (Insulin Lispro 100 Unit/Ml 3 Ml Vial) 0 unit SUBCUT QIDACHS [facility]; Protocol Last Admin: 07/13/22 07:32 Dose: Not Given Documented By: MORIAH Non-Admin Reason: No Insulin Coverage Pharmacy Consult (Consult Rx Perform Med Rec) 1 each MISCELLANE ONCE PRN PRN Reason: Consult order Pharmacy Consult (Consult Rx Perform Med Rec) 1 each MISCELLANE ONCE PRN PRN Reason: Consult order Pharmacy Consult (Consult Rx Vancomycin Dosing) 1 each MISCELLANE DAILY PRN PRN Reason: Consult order Senna (Sennosides 8.6 Mg Tablet) 17.2 mg PO BEDTIME PRN PRN Reason: Constipation Sodium Chloride (0.9 % Sodium Chloride Flush 3 Ml Syringe) 3 ml IVFLUSH QSHIFT [facility] Last Admin: 07/13/22 08:23 Dose: 3 ml Documented By: MORIAH Labs 07/08/22 05:41 07/13/22 09:54 Labs: Laboratory Results - last 24 hr 07/12/22 07/12/22 07/12/22 11:04 15:39 19:17 Estim Creat Clear Calc Estimated GFR POC Glucose 287 H 222 H 245 H Random Vancomycin 07/13/22 07/13/22 07/13/22 07:22 09:54 09:54 Estim Creat Clear Calc 88.6 Estimated GFR > 60 POC Glucose 124 H Random Vancomycin 16.5 Microbiology Microbiology Results: Microbiology 07/07/22 14:52 Blood Culture - Final Blood - Venous No growth after 5 days. 07/07/22 14:52 Blood Culture - Final Blood - Venous No growth after 5 days. Assessment and Plan (1) Osteomyelitis of great toe of left foot: Status: Acute (2) PAD (peripheral artery disease): Status: Acute (3) Diabetes: Status: Acute (4) PAF (paroxysmal atrial fibrillation): Status: Acute Plan This is a 62-year-old male with a past medical history notable for atrial fibrillation anticoagulated on Xarelto, hypertension, hyperlipidemia, [id number]-aetnowehk type 2 diabetes mellitus with a history of PUD. Osteomyelitis/wet gangrenous left great toe Nonhealing diabetic ulcer of left foot, exposed bone negative blood cultures. Continue IV antibiotics-Zosyn and vancomycin ordered vascular surgery input appreciated, high risk for amputation, to do Angiogram tomorrow, might need angioplasty, stent, and/or atherectomy Follow vancomycin trough PAD Continue statin and apixaban Hyperglycemia in Shr-wohihnk-dzrtvtuhc diabetes mellitus insulin sliding scale. Hypoglycemia protocol in place diabetic diet. Paroxysmal Atrial fibrillation Hypercoagulability secondary to atrial fibrillation apixaban 5 mg p.o. b.i.d.-oral anticoagulation to be held and patient will be given subcu Lovenox/therapeutic dose Hypertension antihypertensives and oral diuretic were resumed Hyperlipidemia statin continued. DVT prophylaxis Lovenox therapeutic dose HCP/person to contact is patient's sister Aide Calixto, The patient will continue to need overnight hospital stay for treatment of osteomyelitis pending vascular surgery evaluation and possible intervention Time Spent With Patient Time: Total time managing care of this patient today ____ minutes. Quality Stroke Does the patient have a stroke diagnosis?: No VTE Prior VTE?: No VTE Risk Level:: Medical - moderate - high VTE Device Contraindication: N/A - Device Ordered VTE Drug Contraindication: N/A - Med Ordered
[2022-07-13 11:13] LABS: Glucose, Whole Blood 226 mg/dL (60-115)
[2022-07-13] MEDS: Insulin Lispro 100 UNIT/ML 3 ML VIAL SUBCUT ×3 (12:00→21:19)
[2022-07-13] MEDS: vancomycin HCL 1,500 MG in 0.9 % Sodium Chloride 500 ML 333.33 MG IV (12:00)
[2022-07-13 15:20] VITALS: BP 123/59; PULSE 81; RESP 16; TEMP 36.2; O2SAT 95
[2022-07-13 15:30] LABS: Glucose, Whole Blood 165 mg/dL (60-115)
[2022-07-13 19:55] VITALS: BP 128/69; PULSE 81; RESP 16; TEMP 36.6; O2SAT 96
[2022-07-13 20:13] LABS: Glucose, Whole Blood 190 mg/dL (60-115)
[2022-07-14] VITALS (13 sets, daily range): BP systolic 110–141; BP diastolic 57–78; PULSE 73–86; RESP 16–18; TEMP 36.1–36.7; O2SAT 94–98
[2022-07-14] MEDS: vancomycin HCL 1,500 MG in 0.9 % Sodium Chloride 500 ML 333.33 MG IV ×3 (00:30→23:05)
[2022-07-14] MEDS: 0.9 % Sodium Chloride Flush 3 ML SYRINGE IVFLUSH ×3 (00:30→20:29)
[2022-07-14] MEDS: Piperacillin Sodium/Tazobactam 3.375 GM in 0.9 % Sodium Chloride 50 ML IV ×4 (02:08→20:29)
[2022-07-14] MEDS: Enoxaparin Sodium 150 MG/ML SYRINGE 135 MG SUBCUT ×2 (06:17→18:33)
[2022-07-14 07:50] LABS: Glucose, Whole Blood 133 mg/dL (60-115)
[2022-07-14] MEDS: Gabapentin 300 MG CAPSULE PO ×2 (08:28→20:28)
[2022-07-14] MEDS: Amiodarone HCL 200 MG TABLET PO (08:28)
[2022-07-14] MEDS: Atorvastatin Calcium 20 MG TABLET PO (08:28)
[2022-07-14] MEDS: dilTIAZem HCL CD 240 MG CAP.ER.DEG PO (08:28)
[2022-07-14] MEDS: Docusate Sodium 100 MG CAPSULE PO ×2 (08:28→20:28)
[2022-07-14 08:57] LABS: Estimated Glomerular Filt Rate > 60
--- NOTE | 2022-07-14 12:31 | P.OP_ITS ---
Operative Note Operative Note Date of Service: 07/14/22 Narrative: Angiogram report from [facility] Preoperative diagnosis: Atherosclerosis of left lower extremity with nonhealing ulcer Postoperative diagnosis: Same Procedure: 1. Ultrasound-guided right common femoral access 2. Aortogram with left lower extremity runoff Surgeon:Carlos Duarte M.D., FACS, RPVI [place] Farmer:None Anesthesia: Local with moderate conscious sedation. Total intraservice moderate sedation time was 27 minutes. I monitored the patient's level of consciousness and physiologic status continuously throughout the procedure. Specimens:none Drains:none Estimated blood loss: Less than 10 ml Implant: None Indications: 62-year-old diabetic gentleman with nonhealing foot ulcer. He now presents for endovascular intervention. He had preoperative and arterial ultrasound which was concerning for tibial disease. The patient has signed the informed consent after reviewing risks, complications, benefits, and alternatives previously discussed with the patient. The patient was given the opportunity to ask any additional questions or voice any concerns. All questions were answered to the patient's satisfaction. Procedure in detail: Patient was brought to the angiography suite prior to which a time-out was called for patient identification and site verification. Bilateral groins were prepped and draped in the standard surgical fashion. Under ultrasound guidance right common femoral was punctured with micro puncture needle and wire. Subsequently a precision 4 Stateless sheath was then placed. Bentson wire was advanced to the level of the aorta. 4 Stateless Flush catheter was brought up and parked at the level of the renal arteries. Aortogram was then undertaken. Catheter was brought down to the level of the iliac bifurcation. Iliacs were subsequently imaged. Catheter was then brought in up and over to the left side SFA. Runoff study was then undertaken. No intervention was indicated. Catheter wire sheath was removed. Direct pressure was held for 10 minutes. Patient tolerated the procedure well. Interpretation of films: 1. Ultrasound demonstrates appropriate femoral puncture. Image of which was saved. 2. Aortogram demonstrates appropriate caliber aorta. Minimal disease. Appropriate take-off of the renals. 3. Iliac images demonstrate no significant disease 4. Left Leg Common femoral artery: No significant disease Profundus Femoris: No significant disease Superficial femoral artery: No significant disease Popliteal artery (p1,p2,p3): Patent with no significant disease Anterior tibial artery: No significant disease and dominant runoff all the way to the level of the ankle Peroneal artery: Patent and present to level of the ankle Posterior tibial artery: Present but diminutive still present down to the level of the ankle Dorsalis pedis/plantar arch: Incomplete Conclusion: 1. Successful diagnostic angiogram. No intervention indicated. All small vessel disease. Flow terminates at the level of the ankle. 2. Anticoagulation status: No change This note is constructed using voice recognition software. While every effort has been made to ensure accuracy, [employer] consultant errors may have been included. Thank you for allowing me to participate in the care of your patient. Yours sincerely, Carlos Duarte MD, FACS, R.P.V.I.
[2022-07-14 14:23] LABS: Vancomycin Random 12.9 mcg/mL (15-20)
[2022-07-14 14:24] LABS: Estimated Glomerular Filt Rate > 60
--- NOTE | 2022-07-14 14:28 | P.PNIM_ITS ---
Subjective Subjective Date of Service: 07/14/22 Interval History: cc: toe infection interval history:no complaints Physical Exam Vital Signs: Vital Signs: Last Vital Signs Temp 98.1 F 07/14/22 12:20 Pulse 81 07/14/22 14:20 Resp 16 07/14/22 13:50 BP 136/72 07/14/22 14:20 Pulse Ox 96 07/14/22 14:20 O2 Del Method 07/14/22 14:20 BMI result Body Mass Index 47.0 Const: Other: Constitutional : Awake, interactive, not in distress Neck : Normal inspection, Supple Cardiovascular : RRR, no JVP, no lower extremity edema Respiratory : good bilateral air entry, no wheezes or rhonchi Gastrointestinal: soft, lax, Normal bowel sounds, Non tender Skin : Warm, Dry Extremities: Great left toe with nonhealing ulcer to the medial aspect with extension to bone, cellulitic in appearance, erythema surrounding great left toe with decrease pulses. Neurological : Alert & oriented x3, No focal deficit Objective Data Active Medications Acetaminophen (Acetaminophen 325 Mg Tablet) 650 mg PO Q6H PRN PRN Reason: Pain, Mild (Pain Scale 1-3) Amiodarone HCl (Amiodarone Hcl 200 Mg Tablet) 200 mg PO DAILY [facility] Last Admin: 07/14/22 08:28 Dose: 200 mg Documented By: JOVAN Atorvastatin Calcium (Atorvastatin Calcium 20 Mg Tablet) 20 mg PO DAILY [facility] Last Admin: 07/14/22 08:28 Dose: 20 mg Documented By: JOVAN Dextrose (Dextrose 50 % 25 Gm/50 Ml Syringe) 25 gm IVPUSH Q15M PRN; Protocol PRN Reason: per Hypoglycemia Standing Ord. Diltiazem HCl (Diltiazem Hcl Cd 240 Mg Cap.Er.Deg) 240 mg PO DAILY [facility]; Protocol Last Admin: 07/14/22 08:28 Dose: 240 mg Documented By: JOVAN Docusate Sodium (Docusate Sodium 100 Mg Capsule) 100 mg PO BID [facility] Last Admin: 07/14/22 08:28 Dose: 100 mg Documented By: JOVAN Enoxaparin Sodium (Enoxaparin Sodium 150 Mg/Ml Syringe) 135 mg 1 mg/kg (135 mg) SUBCUT Q12H [facility] Last Admin: 07/14/22 06:17 Dose: 135 mg Documented By: OZORALB Fluticasone Propionate (Fluticasone Propionate Nasal 16 Gm [place]) 1 spray NO STRIL-B BID PRN PRN Reason: congestion Gabapentin (Gabapentin 300 Mg Capsule) 300 mg PO BID [facility] Last Admin: 07/14/22 08:28 Dose: 300 mg Documented By: JOVAN Glucose (Glucose Gel 15 Gm Gel..Gram.) 15 gm PO Q15M PRN; Protocol PRN Reason: per Hypoglycemia Standing Ord. Piperacillin Sod/Tazobactam (Sod 3.375 gm/ Sodium Chloride) 50 mls @ 100 mls/hr IV Q6H [facility] Last Infusion: 07/14/22 09:05 Dose: 0 mls/hr Documented By: JOVAN Vancomycin HCl 1,500 mg/ (Sodium Chloride) 500 mls @ 333.333 mls/hr IV Q12H [facility] Last Admin: 07/14/22 14:10 Dose: 333.33 mls/hr Documented By: PRINCE Sodium Chloride (Ns) 1,000 mls @ 100 mls/hr IVCONT .Q10H [facility] Last Admin: 07/14/22 09:05 Dose: Not Given Documented By: JOVAN Non-Admin Reason: Off Unit: Surgery Insulin Human Lispro (Insulin Lispro 100 Unit/Ml 3 Ml Vial) 0 unit SUBCUT QIDACHS [facility]; Protocol Last Admin: 07/14/22 13:18 Dose: Not Given Documented By: JOVAN Non-Admin Reason: Off Unit: Surgery Oxycodone HCl (Oxycodone Hcl Immed Release 5 Mg Tablet) 5 mg PO Q4H PRN PRN Reason: Pain, Moderate (Pain Scale 4-6 Pharmacy Consult (Consult Rx Perform Med Rec) 1 each MISCELLANE ONCE PRN PRN Reason: Consult order Pharmacy Consult (Consult Rx Perform Med Rec) 1 each MISCELLANE ONCE PRN PRN Reason: Consult order Pharmacy Consult (Consult Rx Vancomycin Dosing) 1 each MISCELLANE DAILY PRN PRN Reason: Consult order Senna (Sennosides 8.6 Mg Tablet) 17.2 mg PO BEDTIME PRN PRN Reason: Constipation Sodium Chloride (0.9 % Sodium Chloride Flush 3 Ml Syringe) 3 ml IVFLUSH QSHIFT [facility] Last Admin: 07/14/22 08:32 Dose: 3 ml Documented By: JOVAN Labs 07/08/22 05:41 07/14/22 13:52 Labs: Laboratory Results - last 24 hr 07/13/22 07/13/22 07/14/22 15:22 19:57 07:32 Estim Creat Clear Calc Estimated GFR POC Glucose 165 H 190 H 133 H Random Vancomycin 07/14/22 07/14/22 07/14/22 08:30 13:52 13:52 Estim Creat Clear Calc 97.0 98.0 Estimated GFR > 60 > 60 POC Glucose Random Vancomycin 12.9 L Assessment and Plan (1) Osteomyelitis of great toe of left foot: Status: Acute (2) PAD (peripheral artery disease): Status: Acute (3) Diabetes: Status: Acute (4) PAF (paroxysmal atrial fibrillation): Status: Acute Plan This is a 62-year-old male with a past medical history notable for atrial fibrillation anticoagulated on Xarelto, hypertension, hyperlipidemia, [id number]-[id number] type 2 diabetes mellitus with a history of PUD. presented with worsening left first toe infection Osteomyelitis/wet gangrenous left great toe Nonhealing diabetic ulcer of left foot, exposed bone negative blood cultures. Continue IV antibiotics-Zosyn and vancomycin ordered s/p angio 07/14/22, plan for amputation Follow vancomycin trough PAD Continue statin and apixaban DM with hyperglycemia insulin diabetic diet. Paroxysmal Atrial fibrillation apixaban 5 mg p.o. b.i.d.-oral anticoagulation on hold and patient on subcu Lovenox/therapeutic dose continue amio, cardizem Hypertension cardizem Hyperlipidemia statin DVT prophylaxis Lovenox therapeutic dose reason for continued hospitalization:ongoing iv abx, needs amp Time Spent With Patient Time: Total time managing care of this patient today ____ minutes. Quality Stroke Does the patient have a stroke diagnosis?: No VTE Prior VTE?: No VTE Risk Level:: Medical - moderate - high VTE Device Contraindication: N/A - Device Ordered VTE Drug Contraindication: N/A - Med Ordered
--- NOTE | 2022-07-14 14:36 | HE.PHANOTE ---
vancomycin Dosing Addendum Patients level came back at 12.9 mg/L. Continue dose at 1500 mg Q12H. Patients level was drawn at 1352 instead of 1000. Dose has already been infused. Will get another level for tomorrow 07/15 @1000
[2022-07-14 16:32] LABS: Glucose, Whole Blood 97 mg/dL (60-115)
[2022-07-14] MEDS: 0.9 % Sodium Chloride 1,000 ML 100 ML IVCONT (18:34)
[2022-07-14 19:47] LABS: Glucose, Whole Blood 187 mg/dL (60-115)
[2022-07-14] MEDS: Insulin Lispro 100 UNIT/ML 3 ML VIAL SUBCUT (20:28)
[2022-07-15] MEDS: Piperacillin Sodium/Tazobactam 3.375 GM in 0.9 % Sodium Chloride 50 ML IV ×4 (02:20→20:34)
[2022-07-15 03:54] VITALS: BP 136/68; PULSE 98; RESP 18; TEMP 36.6; O2SAT 96
[2022-07-15] MEDS: 0.9 % Sodium Chloride 1,000 ML 100 ML IVCONT ×2 (04:27→16:08)
[2022-07-15] MEDS: Enoxaparin Sodium 150 MG/ML SYRINGE 135 MG SUBCUT ×2 (05:54→17:30)
[2022-07-15 06:55] LABS: Hematocrit 40.6 % (42.0-52.0); Hemoglobin 12.6 g/dl (14.0-18.0); Mean Corpuscular Hemoglobin 27.6 pg (27.0-33.0); Mean Corpuscular Volume 88.8 fL (80.0-98.0); Mean Platelet Volume 11.4 fL (9.4-12.4); Platelet Count 261 X10*3/uL (160-400); Red Blood Count 4.57 X10*6/uL (4.60-5.80); Red Cell Distribution Width 13.7 % (11.0-16.0); White Blood Count 9.4 X10*3/uL (4.8-10.8)
[2022-07-15 07:21] LABS: Anion Gap 10 (12-20); Blood Urea Nitrogen 13 mg/dL (9-16); Calcium 8.5 mg/dL (8.4-10.2); Carbon Dioxide 26 mmol/L (22-29); Chloride 108 mmol/L (96-108); Creatinine Clr Calc Pharmacy 91.8; Estimated Glomerular Filt Rate > 60; Glucose Fasting 113 mg/dL (60-99); Potassium 4.4 mmol/L (3.3-5.1); Sodium 140 mmol/L (135-145)
[2022-07-15 07:23] LABS: Glucose, Whole Blood 130 mg/dL (60-115)
[2022-07-15] MEDS: Amiodarone HCL 200 MG TABLET PO (08:35)
[2022-07-15] MEDS: Atorvastatin Calcium 20 MG TABLET PO (08:35)
[2022-07-15] MEDS: Docusate Sodium 100 MG CAPSULE PO ×2 (08:35→20:34)
[2022-07-15] MEDS: Gabapentin 300 MG CAPSULE PO ×2 (08:35→20:34)
[2022-07-15] MEDS: dilTIAZem HCL CD 240 MG CAP.ER.DEG PO (08:35)
[2022-07-15] MEDS: 0.9 % Sodium Chloride Flush 3 ML SYRINGE IVFLUSH ×3 (08:36→20:34)
--- NOTE | 2022-07-15 09:48 | HO.VASCPN ---
Subjective Subjective Date of Service: 07/15/22 Patient reports: no new complaints and feels better Interval history: Patient seen examined. No significant events overnight. Status post angiogram. Reports to be doing fairly well. Now for routine follow-up. Physical Exam Vital Signs: Vital Signs: Last Vital Signs Temp 97.9 F 07/15/22 03:54 Pulse 98 07/15/22 03:54 Resp 18 07/15/22 03:54 BP 136/68 07/15/22 03:54 Pulse Ox 96 07/15/22 03:54 O2 Del Method 07/15/22 03:54 BMI result Body Mass Index 47.0 Const: General: cooperative, healthy appearing and no acute distress Orientation/consciousness: oriented to person, oriented to place and oriented to time HEENT: Head: Yes normal to inspection Neck: Carotids: no bruits Chest: Chest palpation & inspection: normal inspection of the chest Resp: Effort & Inspection: normal respiratory effort and able to speak in complete sentences Auscultation: clear to auscultation bilaterally Cardio: Rate: regular rate Heart sounds: S1 normal heart sound present and S2 normal heart sound present GI: Inspection: Yes normal to inspection Skin: Other: Left great toe wound exposed down to bone General skin exam: no rashes or lesions noted Wounds: no wounds Neuro: General: oriented to person, oriented to place, oriented to time and CN's II-XI intact bilaterally Extrem: General: Yes normal to inspection, Yes full ROM and Yes no clubbing, cyanosis or edema Psych: Appearance: grossly normal and well kempt Speech and movement: Normal speech and movement present Affect: normal affect Progress Note: A&P Assessment and plan (1) Osteomyelitis of great toe of left foot: Status: Acute Assessment and Plan: In short patient has a nonhealing left great toe ulcer. In addition there is underlying osteomyelitis. Angiogram demonstrated reasonable flow although flow diminished at the level of the ankle. Do not believe this will heal with conservative management. This was discussed with the patient. The patient will require left great toe amputation. Risks benefits complications were discussed in detail with the patient he agreed and consented. Thank you for allowing us to assist in his care. If there are any questions or concerns please do not hesitate to contact us. Time Spent With Patient Time: Total time managing care of this patient today ____ minutes. Procedures Date of Service Date of Service: 07/15/22 Quality Stroke Does the patient have a stroke diagnosis?: No VTE Prior VTE?: No VTE Risk Level:: Medical - moderate - high VTE Device Contraindication: N/A - Device Ordered VTE Drug Contraindication: N/A - Med Ordered
[2022-07-15 11:00] LABS: Vancomycin Random 13.5 mcg/mL (15-20)
--- NOTE | 2022-07-15 11:10 | P.PNIM_ITS ---
Subjective Subjective Date of Service: 07/15/22 Interval History: cc: toe infection interval history:no complaints Physical Exam Vital Signs: Vital Signs: Last Vital Signs Temp 97.9 F 07/15/22 03:54 Pulse 98 07/15/22 03:54 Resp 18 07/15/22 03:54 BP 136/68 07/15/22 03:54 Pulse Ox 96 07/15/22 03:54 O2 Del Method 07/15/22 03:54 BMI result Body Mass Index 47.0 Const: General: cooperative, healthy appearing and no acute distress Orientation/consciousness: oriented to person, oriented to place and oriented to time HEENT: Head: Yes normal to inspection Neck: Carotids: no bruits Chest: Chest palpation & inspection: normal inspection of the chest Resp: Effort & Inspection: normal respiratory effort and able to speak in complete sentences Auscultation: clear to auscultation bilaterally Cardio: Rate: regular rate Heart sounds: S1 normal heart sound present and S2 normal heart sound present GI: Inspection: Yes normal to inspection Skin: Other: Left great toe wound exposed down to bone General skin exam: no rashes or lesions noted Wounds: no wounds Neuro: General: oriented to person, oriented to place, oriented to time and CN's II-XI intact bilaterally Extrem: General: Yes normal to inspection, Yes full ROM and Yes no clubbing, cyanosis or edema Psych: Appearance: grossly normal and well kempt Speech and movement: Normal speech and movement present Affect: normal affect Objective Data Active Medications Acetaminophen (Acetaminophen 325 Mg Tablet) 650 mg PO Q6H PRN PRN Reason: Pain, Mild (Pain Scale 1-3) Amiodarone HCl (Amiodarone Hcl 200 Mg Tablet) 200 mg PO DAILY [facility] Last Admin: 07/15/22 08:35 Dose: 200 mg Documented By: JOVAN Atorvastatin Calcium (Atorvastatin Calcium 20 Mg Tablet) 20 mg PO DAILY [facility] Last Admin: 07/15/22 08:35 Dose: 20 mg Documented By: JOVAN Dextrose (Dextrose 50 % 25 Gm/50 Ml Syringe) 25 gm IVPUSH Q15M PRN; Protocol PRN Reason: per Hypoglycemia Standing Ord. Diltiazem HCl (Diltiazem Hcl Cd 240 Mg Cap.Er.Deg) 240 mg PO DAILY [facility]; Protocol Last Admin: 07/15/22 08:35 Dose: 240 mg Documented By: JOVAN Docusate Sodium (Docusate Sodium 100 Mg Capsule) 100 mg PO BID [facility] Last Admin: 07/15/22 08:35 Dose: 100 mg Documented By: JOVAN Enoxaparin Sodium (Enoxaparin Sodium 150 Mg/Ml Syringe) 135 mg 1 mg/kg (135 mg) SUBCUT Q12H [facility] Last Admin: 07/15/22 05:54 Dose: 135 mg Documented By: MAINOR Fluticasone Propionate (Fluticasone Propionate Nasal 16 Gm [place]) 1 spray NOSTRIL-B BID PRN PRN Reason: congestion Gabapentin (Gabapentin 300 Mg Capsule) 300 mg PO BID [facility] Last Admin: 07/15/22 08:35 Dose: 300 mg Documented By: JOVAN Glucose (Glucose Gel 15 Gm Gel..Gram.) 15 gm PO Q15M PRN; Protocol PRN Reason: per Hypoglycemia Standing Ord. Piperacillin Sod/Tazobactam (Sod 3.375 gm/ Sodium Chloride) 50 mls @ 100 mls/hr IV Q6H [facility] Last Infusion: 07/15/22 09:47 Dose: 100 mls/hr Documented By: JOVAN Vancomycin HCl 1,500 mg/ (Sodium Chloride) 500 mls @ 333.333 mls/hr IV Q12H [facility] Last Infusion: 07/15/22 00:58 Dose: 0 mls/hr Documented By: MAINOR Sodium Chloride (Ns) 1,000 mls @ 100 mls/hr IVCONT .Q10H [facility] Last Admin: 07/15/22 04:27 Dose: 100 mls/hr Documented By: MAINOR Insulin Human Lispro (Insulin Lispro 100 Unit/Ml 3 Ml Vial) 0 unit SUBCUT QID ACHS [facility]; Protocol Last Admin: 07/15/22 08:36 Dose: Not Given Documented By: JOVAN Non-Admin Reason: No Insulin Coverage Oxycodone HCl (Oxycodone Hcl Immed Release 5 Mg Tablet) 5 mg PO Q4H PRN PRN Reason: Pain, Moderate (Pain Scale 4-6 Pharmacy Consult (Consult Rx Perform Med Rec) 1 each MISCELLANE ONCE PRN PRN Reason: Consult order Pharmacy Consult (Consult Rx Perform Med Rec) 1 each MISCELLANE ONCE PRN PRN Reason: Consult order Pharmacy Consult (Consult Rx Vancomycin Dosing) 1 each MISCELLANE DAILY PRN PRN Reason: Consult order Senna (Sennosides 8.6 Mg Tablet) 17.2 mg PO BEDTIME PRN PRN Reason: Constipation Sodium Chloride (0.9 % Sodium Chloride Flush 3 Ml Syringe) 3 ml IVFLUSH QSHIFT [facility] Last Admin: 07/15/22 08:36 Dose: 3 ml Documented By: JOVAN Labs 07/15/22 05:45 07/15/22 05:45 Labs: Laboratory Results - last 24 hr 07/14/22 07/14/22 07/14/22 13:52 13:52 16:21 MCV MCH MCHC RDW Plt Count MPV Absolute Nucleated RBC Nucleated RBC % (auto) Anion Gap Estim Creat Clear Calc 98.0 Estimated GFR > 60 POC Glucose 97 Fasting Glucose Calcium Random Vancomycin 12.9 L 07/14/22 07/15/22 07/15/22 19:37 05:45 05:45 MCV 88.8 MCH 27.6 MCHC 31.0 RDW 13.7 Plt Count 261 MPV 11.4 Absolute Nucleated RBC 0.000 Nucleated RBC % (auto) 0.0 Anion Gap 10 L Estim Creat Clear Calc 91.8 Estimated GFR > 60 POC Glucose 187 H Fasting Glucose 113 H Calcium 8.5 Random Vancomycin 07/15/22 07/15/22 07:08 10:21 MCV MCH MCHC RDW Plt Count MPV Absolute Nucleated RBC Nucleated RBC % (auto) Anion Gap Estim Creat Clear Calc Estimated GFR POC Glucose 130 H Fasting Glucose Calcium Random Vancomycin 13.5 L Assessment and Plan (1) Osteomyelitis of great toe of left foot: Status: Acute (2) PAD (peripheral artery disease): Status: Acute (3) Diabetes: Status: Acute (4) PAF (paroxysmal atrial fibrillation): Status: Acute Plan This is a 62-year-old male with a past medical history notable for atrial fibrillation anticoagulated on Xarelto, hypertension, hyperlipidemia, non-ins ulin-dependent type 2 diabetes mellitus with a history of PUD. presented with worsening left first toe infection Osteomyelitis/wet gangrenous left great toe Nonhealing diabetic ulcer of left foot, exposed bone negative blood cultures. Continue IV antibiotics-Zosyn and vancomycin ordered s/p angio 07/14/22 - adequate flow, no intervention, plan for amputation 07/16/22 PAD Continue statin DM with hyperglycemia insulin diabetic diet. Paroxysmal Atrial fibrillation apixaban 5 mg p.o. b.i.d.-oral anticoagulation on hold and patient on subcu Lovenox/therapeutic dose continue amio, cardizem Hypertension cardizem Hyperlipidemia statin DVT prophylaxis Lovenox therapeutic dose reason for continued hospitalization:ongoing iv abx, needs amp Time Spent With Patient Time: Total time managing care of this patient today ____ minutes. Quality Stroke Does the patient have a stroke diagnosis?: No VTE Prior VTE?: No VTE Risk Level:: Medical - moderate - high VTE Device Contraindication: N/A - Device Ordered VTE Drug Contraindication: N/A - Med Ordered
[2022-07-15 11:23] LABS: Creatinine Clr Calc Pharmacy 90.2; Estimated Glomerular Filt Rate > 60
--- NOTE | 2022-07-15 11:33 | HE.PHANOTE ---
BASED ON SCR OF 1.11 AND TROUGH OF 13.5 DOSE CONTINUED AT 1500 Q 12H. NEXT TROUGH ON 07/16 @ 2100
--- NOTE | 2022-07-15 11:49 | MHC.CM.PN ---
SURGERY TOMORROW. CASE MANAGEMENT FOLLOWING
[2022-07-15 11:53] LABS: Glucose, Whole Blood 209 mg/dL (60-115)
[2022-07-15] MEDS: vancomycin HCL 1,500 MG in 0.9 % Sodium Chloride 500 ML 333.3 MG IV (12:14)
[2022-07-15] MEDS: Insulin Lispro 100 UNIT/ML 3 ML VIAL SUBCUT ×3 (12:15→20:49)
[2022-07-15 16:22] LABS: Glucose, Whole Blood 176 mg/dL (60-115)
[2022-07-15 19:27] VITALS: BP 142/79; PULSE 87; RESP 18; TEMP 36.7; O2SAT 94
[2022-07-15 20:41] LABS: Glucose, Whole Blood 211 mg/dL (60-115)
[2022-07-15 23:34] VITALS: BP 117/63; PULSE 88; RESP 18; TEMP 36.9; O2SAT 95
[2022-07-16] VITALS (11 sets, daily range): BP systolic 113–152; BP diastolic 56–82; PULSE 60–88; RESP 14–18; TEMP 36.1–37.1; O2SAT 94–96
[2022-07-16] MEDS: vancomycin HCL 1,500 MG in 0.9 % Sodium Chloride 500 ML 333.3 MG IV ×2 (00:30→14:34)
[2022-07-16] MEDS: 0.9 % Sodium Chloride 1,000 ML 100 ML IVCONT (00:31)
[2022-07-16] MEDS: Piperacillin Sodium/Tazobactam 3.375 GM in 0.9 % Sodium Chloride 50 ML IV ×4 (02:13→21:53)
[2022-07-16 05:54] LABS: Hematocrit 41.8 % (42.0-52.0); Hemoglobin 13.1 g/dl (14.0-18.0); Mean Corpuscular HGB Conc 31.3 g/dl (31.0-36.0); Mean Corpuscular Hemoglobin 27.4 pg (27.0-33.0); Mean Corpuscular Volume 87.4 fL (80.0-98.0); Mean Platelet Volume 10.5 fL (9.4-12.4); Platelet Count 313 X10*3/uL (160-400); Red Blood Count 4.78 X10*6/uL (4.60-5.80); Red Cell Distribution Width 13.8 % (11.0-16.0)
[2022-07-16] MEDS: Enoxaparin Sodium 150 MG/ML SYRINGE 135 MG SUBCUT ×2 (06:17→18:01)
[2022-07-16 06:25] LABS: Anion Gap 13 (12-20); Blood Urea Nitrogen 12 mg/dL (9-16); Calcium 8.9 mg/dL (8.4-10.2); Carbon Dioxide 27 mmol/L (22-29); Chloride 109 mmol/L (96-108); Creatinine Clr Calc Pharmacy 90.2; Estimated Glomerular Filt Rate > 60; Glucose Fasting 147 mg/dL (60-99); Potassium 4.6 mmol/L (3.3-5.1); Sodium 144 mmol/L (135-145)
[2022-07-16 08:05] LABS: Glucose, Whole Blood 143 mg/dL (60-115)
--- NOTE | 2022-07-16 08:50 | P.CONAN_ITS ---
Documented by User: Alem Ruiz MD 07/16/22 12:11 [facility] Past Medical History Medical History Atrial fibrillation Diabetes Diabetes mellitus type II, non insulin dependent Diabetic foot ulcer associated with type 2 diabetes mellitus HLD (hyperlipidemia) HTN (hypertension) PAD (peripheral artery disease) Family History Family History Other HTN (hypertension) Family history of problems with anesthesia: No Surgical History History of Problems with Anesthesia: No Social History Social History Household Members: None Housing: Condominium Do you presently have visiting nurse or other home services: No Patient Tobacco Use Status: Never used Tobacco Use of substances other than those prescribed or required for medical reasons: No Currently Displaying Signs/Symptoms of Drug Intoxication Withdrawal: No Have you been hit, kicked, punched, or otherwise hurt by someone within the past year? If so, by whom?: No Do you feel safe in your current relationship?: No Current Relationship Is there a partner from a previous relationship who is making you feel unsafe now?: No Are you made to feel afraid or neglected: No Are you DNR?: No Advance Directives: No Do you have thoughts of harming others: None Do you have a plan to hurt others: No Plan Recently lost weight without trying: No Nutrition Risks: No Nutritional Risk Poor oral hygiene: No service: No Current occupational status: employed Meds Allergies Allergy/AdvReac Type Severity Reaction Status Date / Time No Known Allergies Allergy Verified 07/07/22 13:07 Home Medications Medication Instructions Recorded Confirmed Last Taken Type amiodarone 200 mg tablet 200 mg PO DAILY 07/01/22 07/07/22 07/07/22 History apixaban 5 mg tablet (Eliquis) 5 mg PO BID 07/01/22 07/07/22 07/07/22 History atorvastatin 20 mg tablet 20 mg PO DAILY 07/01/22 07/07/22 07/07/22 History diltiazem HCl 240 mg 240 mg PO DAILY 07/01/22 07/07/22 07/07/22 History capsule,extended release 24 hr doxycycline hyclate 100 mg capsule 100 mg PO BID 07/01/22 07/07/22 07/07/22 History furosemide 40 mg tablet 40 mg PO DAILY 07/01/22 07/07/22 07/07/22 History gabapentin 300 mg capsule 300 mg PO BID 07/01/22 07/07/22 07/07/22 History glipizide 5 mg tablet, extended 10 mg PO DAILY 07/01/22 07/07/22 07/07/22 History release 24 hr sitagliptin phosphate 100 mg 100 mg PO DAILY 07/01/22 07/07/22 07/07/22 History tablet (Januvia) fluticasone propionate 50 1 spray intranasal BID PRN 07/07/22 07/07/22 Unknown History mcg/actuation nasal congestion spray,suspension Exam Airway Mallampati Class: III TM Dist: >3cm Neck ROM: Full Heart: rrr Lungs: ctaa Assessment and Plan Assessment Anesthesia Assessment: Anesthesia Plan Discussed and Chart Reviewed Final Anesthetic Review Family History of Problems with Anesthesia: No History of Problems with Anesthesia: No NPO: Yes ASA Class: III Final Preanesthetic Review: No Changes in Pt Med Stat, Meds/Allgs Chart Reviewed and Consent Obtained/Reviewed Patient Risk: Intermediate Procedure Risk: Intermediate Anesthetic Plan Anesthetic Plan: GA Disposition: Standard PACU Documented by User: Wanda Trinh MD [facility] Active Problems Active Problems: All Active Problems (Updated 07/10/22 @ 11:12 by Agustina Steve MD) PAF (paroxysmal atrial fibrillation) (Acute) PAD (peripheral artery disease) (Acute) Diabetes (Acute) Osteomyelitis of great toe of left foot (Acute) Past Medical History Medical History Atrial fibrillation Diabetes Diabetes mellitus type II, non insulin dependent Diabetic foot ulcer associated with type 2 diabetes mellitus HLD (hyperlipidemia) HTN (hypertension) PAD (peripheral artery disease) Family History Family History Other HTN (hypertension) Social History Social History Household Members: None Housing: Condominium Do you presently have visiting nurse or other home services: No Patient Tobacco Use Status: Never used Tobacco Use of substances other than those prescribed or required for medical reasons: No Currently Displaying Signs/Symptoms of Drug Intoxication Withdrawal: No Have you been hit, kicked, punched, or otherwise hurt by someone within the past year? If so, by whom?: No Do you feel safe in your current relationship?: No Current Relationship Is there a partner from a previous relationship who is making you feel unsafe now?: No Are you made to feel afraid or neglected: No Are you DNR?: No Advance Directives: No Do you have thoughts of harming others: None Do you have a plan to hurt others: No Plan Recently lost weight without trying: No Nutrition Risks: No Nutritional Risk Poor oral hygiene: No service: No Current occupational status: employed Meds Allergies Allergy/AdvReac Type Severity Reaction Status Date / Time No Known Allergies Allergy Verified 07/07/22 13:07 Active Medications: Current Medications Acetaminophen (Acetaminophen 325 Mg Tablet) 650 mg PO Q6H PRN PRN Reason: Pain, Mild (Pain Scale 1-3) Amiodarone HCl (Amiodarone Hcl 200 Mg Tablet) 200 mg PO DAILY [facility] Last Admin: 07/15/22 08:35 Dose: 200 mg Atorvastatin Calcium (Atorvastatin Calcium 20 Mg Tablet) 20 mg PO DAILY [facility] Last Admin: 07/15/22 08:35 Dose: 20 mg Dextrose (Dextrose 50 % 25 Gm/50 Ml Syringe) 25 gm IVPUSH Q15M PRN; Protocol PRN Reason: per Hypoglycemia Standing Ord. Diltiazem HCl (Diltiazem Hcl Cd 240 Mg Cap.Er.Deg) 240 mg PO DAILY [facility]; Protocol Last Admin: 07/15/22 08:35 Dose: 240 mg Docusate Sodium (Docusate Sodium 100 Mg Capsule) 100 mg PO BID [facility] Last Admin: 07/15/22 20:34 Dose: 100 mg Enoxaparin Sodium (Enoxaparin Sodium 150 Mg/Ml Syringe) 135 mg 1 mg/kg (135 mg) SUBCUT Q12H [facility] Last Admin: 07/16/22 06:17 Dose: 135 mg Fluticasone Propionate (Fluticasone Propionate Nasal 16 Gm [place]) 1 spray NOSTRIL-B BID PRN PRN Reason: congestion Gabapentin (Gabapentin 300 Mg Capsule) 300 mg PO BID [facility] Last Admin: 07/15/22 20:34 Dose: 300 mg Glucose (Glucose Gel 15 Gm Gel..Gram.) 15 gm PO Q15M PRN; Protocol PRN Reason: per Hypoglycemia Standing Ord. Piperacillin Sod/Tazobactam (Sod 3.375 gm/ Sodium Chloride) 50 mls @ 100 mls/hr IV Q6H [facility] Last Infusion: 07/16/22 03:02 Dose: Infused Vancomycin HCl 1,500 mg/ (Sodium Chloride) 500 mls @ 333.333 mls/hr IV Q12H [facility] Last Infusion: 07/16/22 02:04 Dose: Infused Insulin Human Lispro (Insulin Lispro 100 Unit/Ml 3 Ml Vial) 0 unit SUBCUT QIDACHS [facility]; Protocol Last Admin: 07/16/22 08:46 Dose: Not Given Oxycodone HCl (Oxycodone Hcl Immed Release 5 Mg Tablet) 5 mg PO Q4H PRN PRN Reason: Pain, Moderate (Pain Scale 4-6 Pharmacy Consult (Consult Rx Perform Med Rec) 1 each MISCELLANE ONCE PRN PRN Reason: Consult order Pharmacy Consult (Consult Rx Perform Med Rec) 1 each MISCELLANE ONCE PRN PRN Reason: Consult order Pharmacy Consult (Consult Rx Vancomycin Dosing) 1 each MISCELLANE DAILY PRN PRN Reason: Consult order Senna (Sennosides 8.6 Mg Tablet) 17.2 mg PO BEDTIME PRN PRN Reason: Constipation Sodium Chloride (0.9 % Sodium Chloride Flush 3 Ml Syringe) 3 ml IVFLUSH QSHIFT [facility] Last Admin: 07/15/22 20:34 Dose: 3 ml Home Medications Medication Instructions Recorded Confirmed Last Taken Type amiodarone 200 mg tablet 200 mg PO DAILY 07/01/22 07/07/22 07/07/22 History apixaban 5 mg tablet (Eliquis) 5 mg PO BID 07/01/22 07/07/22 07/07/22 History atorvastatin 20 mg tablet 20 mg PO DAILY 07/01/22 07/07/22 07/07/22 History diltiazem HCl 240 mg 240 mg PO DAILY 07/01/22 07/07/22 07/07/22 History capsule,extended release 24 hr doxycycline hyclate 100 mg capsule 100 mg PO BID 07/01/22 07/07/22 07/07/22 History furosemide 40 mg tablet 40 mg PO DAILY 07/01/22 07/07/22 07/07/22 History gabapentin 300 mg capsule 300 mg PO BID 07/01/22 07/07/22 07/07/22 History glipizide 5 mg tablet, extended 10 mg PO DAILY 07/01/22 07/07/22 07/07/22 History release 24 hr sitagliptin phosphate 100 mg 100 mg PO DAILY 07/01/22 07/07/22 07/07/22 History tablet (Januvia) fluticasone propionate 50 1 spray intranasal BID PRN 07/07/22 07/07/22 Unknown History mcg/actuation nasal congestion spray,suspension Exam Exam Date and Time: July 16, 2022 0850 Height,Weight and Vital Signs: Height 5 ft 7 in Weight 136.078 kg Last Vital Signs Temp 98.8 F 07/16/22 08:00 Pulse 86 07/16/22 08:00 Resp 18 07/16/22 08:00 BP 113/59 L 07/16/22 08:00 Pulse Ox 94 07/16/22 08:00 O2 Del Method 07/16/22 08:00 Pertinent Lab Results Pertinent Lab Results: Laboratory Tests 07/07/22 07/07/22 07/07/22 13:18 13:19 13:19 WBC 14.9 H RBC 5.24 Hgb 14.7 Hct 45.1 MCV 86.1 MCH 28.1 MCHC 32.6 RDW 13.2 Plt Count 291 MPV 11.6 Immature Gran % (Auto) 0.3 Neut % (Auto) 87.2 H Lymph % (Auto) 7.0 L [place] % (Auto) 5.1 Eos % (Auto) 0.1 Baso % (Auto) 0.3 Lymph # (Auto) 1.1 L [place] # (Auto) 0.8 Eos # (Auto) 0.0 Baso # (Auto) 0.0 Abs Immat Gran (auto) 0.05 H Absolute Neuts (auto) 13.0 H Absolute Nucleated RBC 0.000 Nucleated RBC % (auto) 0.0 ESR 69 H PT INR APTT Sodium Potassium Chloride Carbon Dioxide Anion Gap BUN Creatinine Estim Creat Clear Calc Estimated GFR POC Glucose Random Glucose Fasting Glucose Lactic Acid 1.1 Calcium Magnesium Total Bilirubin Direct Bilirubin AST ALT Alkaline Phosphatase C-Reactive Protein Total Protein Albumin Urine Color Urine Appearance Urine pH Ur Specific [place] Urine Protein Urine Glucose (UA) Urine Ketones Urine Blood Urine Nitrite Ur Leukocyte Esterase Vancomycin Trough Random Vancomycin COVID-19 ([facility]) COVID-19 Clin Com 07/07/22 07/07/22 07/07/22 13:19 13:19 17:25 WBC RBC Hgb Hct MCV MCH MCHC RDW Plt Count MPV Immature Gran % (Auto) Neut % (Auto) Lymph % (Auto) [place] % (Auto) Eos % (Auto) Baso % (Auto) Lymph # (Auto) [place] # (Auto) Eos # (Auto) Baso # (Auto) Abs Immat Gran (auto) Absolute Neuts (auto) Absolute Nucleated RBC Nucleated RBC % (auto) ESR PT INR APTT Sodium 138 Potassium 3.9 Chloride 100 Carbon Dioxide 27 Anion Gap 15 BUN 19 H Creatinine 1.36 Estim Creat Clear Calc 74.9 Estimated GFR 53 POC Glucose 132 H Random Glucose 185 H Fasting Glucose Lactic Acid Calcium 9.3 Magnesium 1.7 Total Bilirubin 0.7 Direct Bilirubin 0.2 AST 15 ALT 11 Alkaline Phosphatase 133 H C-Reactive Protein 9.17 H Total Protein 7.1 Albumin 4.0 Urine Color Urine Appearance Urine pH Ur Specific [place] Urine Protein Urine Glucose (UA) Urine Ketones Urine Blood Urine Nitrite Ur Leukocyte Esterase Vancomycin Trough Random Vancomycin COVID-19 ([facility]) Negative COVID-19 Clin Com See Note 07/07/22 07/07/22 07/07/22 19:35 21:09 21:47 WBC RBC Hgb Hct MCV MCH MCHC RDW Plt Count MPV Immature Gran % (Auto) Neut % (Auto) Lymph % (Auto) [place] % (Auto) Eos % (Auto) Baso % (Auto) Lymph # (Auto) [place] # (Auto) Eos # (Auto) Baso # (Auto) Abs Immat Gran (auto) Absolute Neuts (auto) Absolute Nucleated RBC Nucleated RBC % (auto) ESR PT 20.4 H INR 1.7 H APTT 36.4 Sodium Potassium Chloride Carbon Dioxide Anion Gap BUN Creatinine Estim Creat Clear Calc Estimated GFR POC Glucose 238 H Random Glucose Fasting Glucose Lactic Acid Calcium Magnesium Total Bilirubin Direct Bilirubin AST ALT Alkaline Phosphatase C-Reactive Protein Total Protein Albumin Urine Color Yellow Urine Appearance Clear Urine pH 6.0 Ur Specific [place] 1.015 Urine Protein Negative Urine Glucose (UA) Negative Urine Ketones Negative Urine Blood Negative Urine Nitrite Negative Ur Leukocyte Esterase Negative Vancomycin Trough Random Vancomycin COVID-19 ([facility]) COVID-19 LYSOGENE 07/08/22 07/08/22 07/08/22 05:41 05:41 08:08 WBC 9.9 RBC 4.68 Hgb 13.0 L Hct 40.9 L MCV 87.4 MCH 27.8 MCHC 31.8 RDW 13.3 Plt Count 231 MPV 12.1 Immature Gran % (Auto) 0.3 Neut % (Auto) 78.3 H Lymph % (Auto) 13.0 L [place] % (Auto) 7.6 Eos % (Auto) 0.5 Baso % (Auto) 0.3 Lymph # (Auto) 1.3 [place] # (Auto) 0.8 Eos # (Auto) 0.1 Baso # (Auto) 0.0 Abs Immat Gran (auto) 0.03 Absolute Neuts (auto) 7.8 Absolute Nucleated RBC 0.000 Nucleated RBC % (auto) 0.0 ESR PT INR APTT Sodium 138 Potassium 3.2 L Chloride 102 Carbon Dioxide 28 Anion Gap 11 L BUN 16 Creatinine 1.13 Estim Creat Clear Calc 90.2 Estimated GFR > 60 POC Glucose 121 H Random Glucose 97 Fasting Glucose Lactic Acid Calcium 8.7 D Magnesium Total Bilirubin Direct Bilirubin AST ALT Alkaline Phosphatase C-Reactive Protein Total Protein Albumin Urine Color Urine Appearance Urine pH Ur Specific [place] Urine Protein Urine Glucose (UA) Urine Ketones Urine Blood Urine Nitrite Ur Leukocyte Esterase Vancomycin Trough Random Vancomycin COVID-19 ([facility]) COVID-19 [email or web address] Com 07/08/22 07/08/22 07/08/22 11:24 16:16 17:16 WBC RBC Hgb Hct MCV MCH MCHC RDW Plt Count MPV Immature Gran % (Auto) Neut % (Auto) Lymph % (Auto) [place] % (Auto) Eos % (Auto) Baso % (Auto) Lymph # (Auto) [place] # (Auto) Eos # (Auto) Baso # (Auto) Abs Immat Gran (auto) Absolute Neuts (auto) Absolute Nucleated RBC Nucleated RBC % (auto) ESR PT 16.2 H INR 1.4 H APTT Sodium Potassium Chloride Carbon Dioxide Anion Gap BUN Creatinine Estim Creat Clear Calc Estimated GFR POC Glucose 199 H 211 H Random Glucose Fasting Glucose Lactic Acid Calcium Magnesium Total Bilirubin Direct Bilirubin AST ALT Alkaline Phosphatase C-Reactive Protein Total Protein Albumin Urine Color Urine Appearance Urine pH Ur Specific [place] Urine Protein Urine Glucose (UA) Urine Ketones Urine Blood Urine Nitrite Ur Leukocyte Esterase Vancomycin Trough Random Vancomycin COVID-19 ([facility]) COVID-19 Clin Com 07/08/22 07/09/22 07/09/22 20:06 05:50 05:50 WBC RBC Hgb Hct MCV MCH MCHC RDW Plt Count MPV Immature Gran % (Auto) Neut % (Auto) Lymph % (Auto) [place] % (Auto) Eos % (Auto) Baso % (Auto) Lymph # (Auto) [place] # (Auto) Eos # (Auto) Baso # (Auto) Abs Immat Gran (auto) Absolute Neuts (auto) Absolute Nucleated RBC Nucleated RBC % (auto) ESR PT INR APTT Sodium 141 Potassium 4.1 D Chloride 108 Carbon Dioxide 25 Anion Gap 12 BUN 12 Creatinine 1.01 0.97 Estim Creat Clear Calc 100.9 105.0 Estimated GFR > 60 > 60 POC Glucose 193 H Random Glucose 152 H Fasting Glucose Lactic Acid Calcium 8.6 Magnesium Total Bilirubin Direct Bilirubin AST ALT Alkaline Phosphatase C-Reactive Protein Total Protein Albumin Urine Color Urine Appearance Urine pH Ur Specific [place] Urine Protein Urine Glucose (UA) Urine Ketones Urine Blood Urine Nitrite Ur Leukocyte Esterase Vancomycin Trough Random Vancomycin COVID-19 ([facility]) COVID-19 Clin Com 07/09/22 07/09/22 07/09/22 07:24 09:54 11:36 WBC RBC Hgb Hct MCV MCH MCHC RDW Plt Count MPV Immature Gran % (Auto) Neut % (Auto) Lymph % (Auto) [place] % (Auto) Eos % (Auto) Baso % (Auto) Lymph # (Auto) [place] # (Auto) Eos # (Auto) Baso # (Auto) Abs Immat Gran (auto) Absolute Neuts (auto) Absolute Nucleated RBC Nucleated RBC % (auto) ESR PT INR APTT Sodium Potassium Chloride Carbon Dioxide Anion Gap BUN Creatinine Estim Creat Clear Calc Estimated GFR POC Glucose 163 H 211 H Random Glucose Fasting Glucose Lactic Acid Calcium Magnesium Total Bilirubin Direct Bilirubin AST ALT Alkaline Phosphatase C-Reactive Protein Total Protein Albumin Urine Color Urine Appearance Urine pH Ur Specific [place] Urine Protein Urine Glucose (UA) Urine Ketones Urine Blood Urine Nitrite Ur Leukocyte Esterase Vancomycin Trough Random Vancomycin 4.9 L COVID-19 ([facility]) COVID-19 LYSOGENE 07/09/22 07/09/22 07/10/22 16:11 20:41 05:42 WBC RBC Hgb Hct MCV MCH MCHC RDW Plt Count MPV Immature Gran % (Auto) Neut % (Auto) Lymph % (Auto) [place] % (Auto) Eos % (Auto) Baso % (Auto) Lymph # (Auto) [place] # (Auto) Eos # (Auto) Baso # (Auto) Abs Immat Gran (auto) Absolute Neuts (auto) Absolute Nucleated RBC Nucleated RBC % (auto) ESR PT INR APTT Sodium Potassium Chloride Carbon Dioxide Anion Gap BUN Creatinine 1.14 Estim Creat Clear Calc 89.4 Estimated GFR > 60 POC Glucose 230 H 245 H Random Glucose Fasting Glucose Lactic Acid Calcium Magnesium Total Bilirubin Direct Bilirubin AST ALT Alkaline Phosphatase C-Reactive Protein Total Protein Albumin Urine Color Urine Appearance Urine pH Ur Specific [place] Urine Protein Urine Glucose (UA) Urine Ketones Urine Blood Urine Nitrite Ur Leukocyte Esterase Vancomycin Trough Random Vancomycin COVID-19 ([facility]) COVID-19 LYSOGENE 07/10/22 07/10/22 07/10/22 07:01 09:27 11:09 WBC RBC Hgb Hct MCV MCH MCHC RDW Plt Count MPV Immature Gran % (Auto) Neut % (Auto) Lymph % (Auto) [place] % (Auto) Eos % (Auto) Baso % (Auto) Lymph # (Auto) [place] # (Auto) Eos # (Auto) Baso # (Auto) Abs Immat Gran (auto) Absolute Neuts (auto) Absolute Nucleated RBC Nucleated RBC % (auto) ESR PT INR APTT Sodium Potassium Chloride Carbon Dioxide Anion Gap BUN Creatinine Estim Creat Clear Calc Estimated GFR POC Glucose 162 H 233 H Random Glucose Fasting Glucose Lactic Acid Calcium Magnesium Total Bilirubin Direct Bilirubin AST ALT Alkaline Phosphatase C-Reactive Protein Total Protein Albumin Urine Color Urine Appearance Urine pH Ur Specific [place] Urine Protein Urine Glucose (UA) Urine Ketones Urine Blood Urine Nitrite Ur Leukocyte Esterase Vancomycin Trough Random Vancomycin 11.1 L COVID-19 ([facility]) COVID-19 LYSOGENE 07/10/22 07/10/22 07/11/22 16:03 20:11 06:02 WBC RBC Hgb Hct MCV MCH MCHC RDW Plt Count MPV Immature Gran % (Auto) Neut % (Auto) Lymph % (Auto) [place] % (Auto) Eos % (Auto) Baso % (Auto) Lymph # (Auto) [place] # (Auto) Eos # (Auto) Baso # (Auto) Abs Immat Gran (auto) Absolute Neuts (auto) Absolute Nucleated RBC Nucleated RBC % (auto) ESR PT INR APTT Sodium Potassium Chloride Carbon Dioxide Anion Gap BUN Creatinine 1.03 Estim Creat Clear Calc 98.9 Estimated GFR > 60 POC Glucose 263 H 238 H Random Glucose Fasting Glucose Lactic Acid Calcium Magnesium Total Bilirubin Direct Bilirubin AST ALT Alkaline Phosphatase C-Reactive Protein Total Protein Albumin Urine Color Urine Appearance Urine pH Ur Specific [place] Urine Protein Urine Glucose (UA) Urine Ketones Urine Blood Urine Nitrite Ur Leukocyte Esterase Vancomycin Trough Random Vancomycin COVID-19 ([facility]) COVID-extraTKT 07/11/22 07/11/22 07/11/22 07:33 10:26 11:41 WBC RBC Hgb Hct MCV MCH MCHC RDW Plt Count MPV Immature Gran % (Auto) Neut % (Auto) Lymph % (Auto) [place] % (Auto) Eos % (Auto) Baso % (Auto) Lymph # (Auto) [place] # (Auto) Eos # (Auto) Baso # (Auto) Abs Immat Gran (auto) Absolute Neuts (auto) Absolute Nucleated RBC Nucleated RBC % (auto) ESR PT INR APTT Sodium Potassium Chloride Carbon Dioxide Anion Gap BUN Creatinine Estim Creat Clear Calc Estimated GFR POC Glucose 144 H 266 H Random Glucose Fasting Glucose Lactic Acid Calcium Magnesium Total Bilirubin Direct Bilirubin AST ALT Alkaline Phosphatase C-Reactive Protein Total Protein Albumin Urine Color Urine Appearance Urine pH Ur Specific [place] Urine Protein Urine Glucose (UA) Urine Ketones Urine Blood Urine Nitrite Ur Leukocyte Esterase Vancomycin Trough 11.7 Random Vancomycin COVID-19 ([facility]) COVID-19 LYSOGENE 07/11/22 07/11/22 07/12/22 15:36 19:47 05:45 WBC RBC Hgb Hct MCV MCH MCHC RDW Plt Count MPV Immature Gran % (Auto) Neut % (Auto) Lymph % (Auto) [place] % (Auto) Eos % (Auto) Baso % (Auto) Lymph # (Auto) [place] # (Auto) Eos # (Auto) Baso # (Auto) Abs Immat Gran (auto) Absolute Neuts (auto) Absolute Nucleated RBC Nucleated RBC % (auto) ESR PT INR APTT Sodium Potassium Chloride Carbon Dioxide Anion Gap BUN Creatinine 1.05 Estim Creat Clear Calc 97.0 Estimated GFR > 60 POC Glucose 227 H 253 H Random Glucose Fasting Glucose Lactic Acid Calcium Magnesium Total Bilirubin Direct Bilirubin AST ALT Alkaline Phosphatase C-Reactive Protein Total Protein Albumin Urine Color Urine Appearance Urine pH Ur Specific [place] Urine Protein Urine Glucose (UA) Urine Ketones Urine Blood Urine Nitrite Ur Leukocyte Esterase Vancomycin Trough Random Vancomycin COVID-19 ([facility]) COVID-19 Clin Com 07/12/22 07/12/22 07/12/22 07:35 09:57 11:04 WBC RBC Hgb Hct MCV MCH MCHC RDW Plt Count MPV Immature Gran % (Auto) Neut % (Auto) Lymph % (Auto) [place] % (Auto) Eos % (Auto) Baso % (Auto) Lymph # (Auto) [place] # (Auto) Eos # (Auto) Baso # (Auto) Abs Immat Gran (auto) Absolute Neuts (auto) Absolute Nucleated RBC Nucleated RBC % (auto) ESR PT INR APTT Sodium Potassium Chloride Carbon Dioxide Anion Gap BUN Creatinine Estim Creat Clear Calc Estimated GFR POC Glucose 136 H 287 H Random Glucose Fasting Glucose Lactic Acid Calcium Magnesium Total Bilirubin Direct Bilirubin AST ALT Alkaline Phosphatase C-Reactive Protein Total Protein Albumin Urine Color Urine Appearance Urine pH Ur Specific [place] Urine Protein Urine Glucose (UA) Urine Ketones Urine Blood Urine Nitrite Ur Leukocyte Esterase Vancomycin Trough 14.8 Random Vancomycin COVID-19 ([facility]) COVID-19 LYSOGENE 07/12/22 07/12/22 07/13/22 15:39 19:17 07:22 WBC RBC Hgb Hct MCV MCH MCHC RDW Plt Count MPV Immature Gran % (Auto) Neut % (Auto) Lymph % (Auto) [place] % (Auto) Eos % (Auto) Baso % (Auto) Lymph # (Auto) [place] # (Auto) Eos # (Auto) Baso # (Auto) Abs Immat Gran (auto) Absolute Neuts (auto) Absolute Nucleated RBC Nucleated RBC % (auto) ESR PT INR APTT Sodium Potassium Chloride Carbon Dioxide Anion Gap BUN Creatinine Estim Creat Clear Calc Estimated GFR POC Glucose 222 H 245 H 124 H Random Glucose Fasting Glucose Lactic Acid Calcium Magnesium Total Bilirubin Direct Bilirubin AST ALT Alkaline Phosphatase C-Reactive Protein Total Protein Albumin Urine Color Urine Appearance Urine pH Ur Specific [place] Urine Protein Urine Glucose (UA) Urine Ketones Urine Blood Urine Nitrite Ur Leukocyte Esterase Vancomycin Trough Random Vancomycin COVID-19 ([facility]) COVID-19 LYSOGENE 07/13/22 07/13/22 07/13/22 09:54 09:54 11:04 WBC RBC Hgb Hct MCV MCH MCHC RDW Plt Count MPV Immature Gran % (Auto) Neut % (Auto) Lymph % (Auto) [place] % (Auto) Eos % (Auto) Baso % (Auto) Lymph # (Auto) [place] # (Auto) Eos # (Auto) Baso # (Auto) Abs Immat Gran (auto) Absolute Neuts (auto) Absolute Nucleated RBC Nucleated RBC % (auto) ESR PT INR APTT Sodium Potassium Chloride Carbon Dioxide Anion Gap BUN Creatinine 1.15 Estim Creat Clear Calc 88.6 Estimated GFR > 60 POC Glucose 226 H Random Glucose Fasting Glucose Lactic Acid Calcium Magnesium Total Bilirubin Direct Bilirubin AST ALT Alkaline Phosphatase C-Reactive Protein Total Protein Albumin Urine Color Urine Appearance Urine pH Ur Specific [place] Urine Protein Urine Glucose (UA) Urine Ketones Urine Blood Urine Nitrite Ur Leukocyte Esterase Vancomycin Trough Random Vancomycin 16.5 COVID-19 ([facility]) COVID-19 LYSOGENE 07/13/22 07/13/22 07/14/22 15:22 19:57 07:32 WBC RBC Hgb Hct MCV MCH MCHC RDW Plt Count MPV Immature Gran % (Auto) Neut % (Auto) Lymph % (Auto) [place] % (Auto) Eos % (Auto) Baso % (Auto) Lymph # (Auto) [place] # (Auto) Eos # (Auto) Baso # (Auto) Abs Immat Gran (auto) Absolute Neuts (auto) Absolute Nucleated RBC Nucleated RBC % (auto) ESR PT INR APTT Sodium Potassium Chloride Carbon Dioxide Anion Gap BUN Creatinine Estim Creat Clear Calc Estimated GFR POC Glucose 165 H 190 H 133 H Random Glucose Fasting Glucose Lactic Acid Calcium Magnesium Total Bilirubin Direct Bilirubin AST ALT Alkaline Phosphatase C-Reactive Protein Total Protein Albumin Urine Color Urine Appearance Urine pH Ur Specific [place] Urine Protein Urine Glucose (UA) Urine Ketones Urine Blood Urine Nitrite Ur Leukocyte Esterase Vancomycin Trough Random Vancomycin COVID-19 ([facility]) COVID-19 LYSOGENE 07/14/22 07/14/22 07/14/22 08:30 13:52 13:52 WBC RBC Hgb Hct MCV MCH MCHC RDW Plt Count MPV Immature Gran % (Auto) Neut % (Auto) Lymph % (Auto) [place] % (Auto) Eos % (Auto) Baso % (Auto) Lymph # (Auto) [place] # (Auto) Eos # (Auto) Baso # (Auto) Abs Immat Gran (auto) Absolute Neuts (auto) Absolute Nucleated RBC Nucleated RBC % (auto) ESR PT INR APTT Sodium Potassium Chloride Carbon Dioxide Anion Gap BUN Creatinine 1.05 1.04 Estim Creat Clear Calc 97.0 98.0 Estimated GFR > 60 > 60 POC Glucose Random Glucose Fasting Glucose Lactic Acid Calcium Magnesium Total Bilirubin Direct Bilirubin AST ALT Alkaline Phosphatase C-Reactive Protein Total Protein Albumin Urine Color Urine Appearance Urine pH Ur Specific [place] Urine Protein Urine Glucose (UA) Urine Ketones Urine Blood Urine Nitrite Ur Leukocyte Esterase Vancomycin Trough Random Vancomycin 12.9 L COVID-19 ([facility]) COVID-extraTKT 07/14/22 07/14/22 07/15/22 16:21 19:37 05:45 WBC 9.4 RBC 4.57 L Hgb 12.6 L Hct 40.6 L MCV 88.8 MCH 27.6 MCHC 31.0 RDW 13.7 Plt Count 261 MPV 11.4 Immature Gran % (Auto) Neut % (Auto) Lymph % (Auto) [place] % (Auto) Eos % (Auto) Baso % (Auto) Lymph # (Auto) [place] # (Auto) Eos # (Auto) Baso # (Auto) Abs Immat Gran (auto) Absolute Neuts (auto) Absolute Nucleated RBC 0.000 Nucleated RBC % (auto) 0.0 ESR PT INR APTT Sodium Potassium Chloride Carbon Dioxide Anion Gap BUN Creatinine Estim Creat Clear Calc Estimated GFR POC Glucose 97 187 H Random Glucose Fasting Glucose Lactic Acid Calcium Magnesium Total Bilirubin Direct Bilirubin AST ALT Alkaline Phosphatase C-Reactive Protein Total Protein Albumin Urine Color Urine Appearance Urine pH Ur Specific [place] Urine Protein Urine Glucose (UA) Urine Ketones Urine Blood Urine Nitrite Ur Leukocyte Esterase Vancomycin Trough Random Vancomycin COVID-19 ([place]) COVID-19 LYSOGENE 07/15/22 07/15/22 07/15/22 05:45 07:08 10:21 WBC RBC Hgb Hct MCV MCH MCHC RDW Plt Count MPV Immature Gran % (Auto) Neut % (Auto) Lymph % (Auto) [place] % (Auto) Eos % (Auto) Baso % (Auto) Lymph # (Auto) [place] # (Auto) Eos # (Auto) Baso # (Auto) Abs Immat Gran (auto) Absolute Neuts (auto) Absolute Nucleated RBC Nucleated RBC % (auto) ESR PT INR APTT Sodium 140 Potassium 4.4 Chloride 108 Carbon Dioxide 26 Anion Gap 10 L BUN 13 Creatinine 1.11 Estim Creat Clear Calc 91.8 Estimated GFR > 60 POC Glucose 130 H Random Glucose Fasting Glucose 113 H Lactic Acid Calcium 8.5 Magnesium Total Bilirubin Direct Bilirubin AST ALT Alkaline Phosphatase C-Reactive Protein Total Protein Albumin Urine Color Urine Appearance Urine pH Ur Specific [place] Urine Protein Urine Glucose (UA) Urine Ketones Urine Blood Urine Nitrite Ur Leukocyte Esterase Vancomycin Trough Random Vancomycin 13.5 L COVID-19 ([place]) COVID-19 LYSOGENE 07/15/22 07/15/22 07/15/22 10:21 11:48 16:15 WBC RBC Hgb Hct MCV MCH MCHC RDW Plt Count MPV Immature Gran % (Auto) Neut % (Auto) Lymph % (Auto) [place] % (Auto) Eos % (Auto) Baso % (Auto) Lymph # (Auto) [place] # (Auto) Eos # (Auto) Baso # (Auto) Abs Immat Gran (auto) Absolute Neuts (auto) Absolute Nucleated RBC Nucleated RBC % (auto) ESR PT INR APTT Sodium Potassium Chloride Carbon Dioxide Anion Gap BUN Creatinine 1.13 Estim Creat Clear Calc 90.2 Estimated GFR > 60 POC Glucose 209 H 176 H Random Glucose Fasting Glucose Lactic Acid Calcium Magnesium Total Bilirubin Direct Bilirubin AST ALT Alkaline Phosphatase C-Reactive Protein Total Protein Albumin Urine Color Urine Appearance Urine pH Ur Specific [place] Urine Protein Urine Glucose (UA) Urine Ketones Urine Blood Urine Nitrite Ur Leukocyte Esterase Vancomycin Trough Random Vancomycin COVID-19 ([place]) COVID-19 LYSOGENE 07/15/22 07/16/22 07/16/22 20:38 05:26 05:26 WBC 10.0 RBC 4.78 Hgb 13.1 L Hct 41.8 L MCV 87.4 MCH 27.4 MCHC 31.3 RDW 13.8 Plt Count 313 MPV 10.5 Immature Gran % (Auto) Neut % (Auto) Lymph % (Auto) [place] % (Auto) Eos % (Auto) Baso % (Auto) Lymph # (Auto) [place] # (Auto) Eos # (Auto) Baso # (Auto) Abs Immat Gran (auto) Absolute Neuts (auto) Absolute Nucleated RBC 0.000 Nucleated RBC % (auto) 0.0 ESR PT INR APTT Sodium 144 Potassium 4.6 Chloride 109 H Carbon Dioxide 27 Anion Gap 13 BUN 12 Creatinine 1.13 Estim Creat Clear Calc 90.2 Estimated GFR > 60 POC Glucose 211 H Random Glucose Fasting Glucose 147 H Lactic Acid Calcium 8.9 Magnesium Total Bilirubin Direct Bilirubin AST ALT Alkaline Phosphatase C-Reactive Protein Total Protein Albumin Urine Color Urine Appearance Urine pH Ur Specific [place] Urine Protein Urine Glucose (UA) Urine Ketones Urine Blood Urine Nitrite Ur Leukocyte Esterase Vancomycin Trough Random Vancomycin COVID-19 ([place]) COVID-19 [email or web address] 07/16/22 07:45 WBC RBC Hgb Hct MCV MCH MCHC RDW Plt Count MPV Immature Gran % (Auto) Neut % (Auto) Lymph % (Auto) [place] % (Auto) Eos % (Auto) Baso % (Auto) Lymph # (Auto) [place] # (Auto) Eos # (Auto) Baso # (Auto) Abs Immat Gran (auto) Absolute Neuts (auto) Absolute Nucleated RBC Nucleated RBC % (auto) ESR PT INR APTT Sodium Potassium Chloride Carbon Dioxide Anion Gap BUN Creatinine Estim Creat Clear Calc Estimated GFR POC Glucose 143 H Random Glucose Fasting Glucose Lactic Acid Calcium Magnesium Total Bilirubin Direct Bilirubin AST ALT Alkaline Phosphatase C-Reactive Protein Total Protein Albumin Urine Color Urine Appearance Urine pH Ur Specific [place] Urine Protein Urine Glucose (UA) Urine Ketones Urine Blood Urine Nitrite Ur Leukocyte Esterase Vancomycin Trough Random Vancomycin COVID-19 ([place]) COVID-19 [email or web address]
--- NOTE | 2022-07-16 08:50 | HO.PM.IMPN ---
Subjective Subjective Date of Service: 07/16/22 Interval History: cc: toe infection interval history:no complaints Physical Exam Vital Signs: Vital Signs: Last Vital Signs Temp 98.8 F 07/16/22 08:00 Pulse 86 07/16/22 08:00 Resp 18 07/16/22 08:00 BP 113/59 L 07/16/22 08:00 Pulse Ox 94 07/16/22 08:00 O2 Del Method 07/16/22 08:00 BMI result Body Mass Index 47.0 Const: General: cooperative, healthy appearing and no acute distress Orientation/consciousness: oriented to person, oriented to place and oriented to time HEENT: Head: Yes normal to inspection Neck: Carotids: no bruits Chest: Chest palpation & inspection: normal inspection of the chest Resp: Effort & Inspection: normal respiratory effort and able to speak in complete sentences Auscultation: clear to auscultation bilaterally Cardio: Rate: regular rate Heart sounds: S1 normal heart sound present and S2 normal heart sound present GI: Inspection: Yes normal to inspection Skin: Other: Left great toe wound exposed down to bone General skin exam: no rashes or lesions noted Wounds: no wounds Neuro: General: oriented to person, oriented to place, oriented to time and CN's II-XI intact bilaterally Extrem: General: Yes normal to inspection, Yes full ROM and Yes no clubbing, cyanosis or edema Psych: Appearance: grossly normal and well kempt Speech and movement: Normal speech and movement present Affect: normal affect Objective Data Active Medications Acetaminophen (Acetaminophen 325 Mg Tablet) 650 mg PO Q6H PRN PRN Reason: Pain, Mild (Pain Scale 1-3) Amiodarone HCl (Amiodarone Hcl 200 Mg Tablet) 200 mg PO DAILY [facility] Last Admin: 07/15/22 08:35 Dose: 200 mg Documented By: JOVAN Atorvastatin Calcium (Atorvastatin Calcium 20 Mg Tablet) 20 mg PO DAILY [facility] Last Admin: 07/15/22 08:35 Dose: 20 mg Documented By: JOVAN Dextrose (Dextrose 50 % 25 Gm/50 Ml Syringe) 25 gm IVPUSH Q15M PRN; Protocol PRN Reason: per Hypoglycemia Standing Ord. Diltiazem HCl (Diltiazem Hcl Cd 240 Mg Cap.Er.Deg) 240 mg PO DAILY [facility]; Protocol Last Admin: 07/15/22 08:35 Dose: 240 mg Documented By: JOVAN Docusate Sodium (Docusate Sodium 100 Mg Capsule) 100 mg PO BID [facility] Last Admin: 07/15/22 20:34 Dose: 100 mg Documented By: MAINOR Enoxaparin Sodium (Enoxaparin Sodium 150 Mg/Ml Syringe) 135 mg 1 mg/kg (135 mg) SUBCUT Q12H [facility] Last Admin: 07/16/22 06:17 Dose: 135 mg Documented By: MAINOR Fluticasone Propionate (Fluticasone Propionate Nasal 16 Gm [place]) 1 spray NOSTRIL-B BID PRN PRN Reason: congestion Gabapentin (Gabapentin 300 Mg Capsule) 300 mg PO BID [facility] Last Admin: 07/15/22 20:34 Dose: 300 mg Documented By: MAINOR Glucose (Glucose Gel 15 Gm Gel..Gram.) 15 gm PO Q15M PRN; Protocol PRN Reason: per Hypoglycemia Standing Ord. Piperacillin Sod/Tazobactam (Sod 3.375 gm/ Sodium Chloride) 50 mls @ 100 mls/hr IV Q6H [facility] Last Infusion: 07/16/22 03:02 Dose: 0 mls/hr Documented By: MAINOR Vancomycin HCl 1,500 mg/ (Sodium Chloride) 500 mls @ 333.333 mls/hr IV Q12H [facility] Last Infusion: 07/16/22 02:04 Dose: 0 mls/hr Documented By: MAINOR Insulin Human Lispro (Insulin Lispro 100 Unit/Ml 3 Ml Vial) 0 unit SUBCUT QIDACHS [facility]; Protocol Last Admin: 07/16/22 08:46 Dose: Not Given Documented By: CHESTER Non-Admin Reason: No Insulin Coverage Oxycodone HCl (Oxycodone Hcl Immed Release 5 Mg Tablet) 5 mg PO Q4H PRN PRN Reason: Pain, Moderate (Pain Scale 4-6 Pharmacy Consult (Consult Rx Perform Med Rec) 1 each MISCELLANE ONCE PRN PRN Reason: Consult order Pharmacy Consult (Consult Rx Perform Med Rec) 1 each MISCELLANE ONCE PRN PRN Reason: Consult order Pharmacy Consult (Consult Rx Vancomycin Dosing) 1 each MISCELLANE DAILY PRN PRN Reason: Consult order Senna (Sennosides 8.6 Mg Tablet) 17.2 mg PO BEDTIME PRN PRN Reason: Constipation Sodium Chloride (0.9 % Sodium Chloride Flush 3 Ml Syringe) 3 ml IVFLUSH QSHIFT [place] Last Admin: 07/15/22 20:34 Dose: 3 ml Documented By: MAINOR Labs 07/16/22 05:26 07/16/22 05:26 Labs: Laboratory Results - last 24 hr 07/15/22 07/15/22 07/15/22 10:21 10:21 11:48 MCV MCH MCHC RDW Plt Count MPV Absolute Nucleated RBC Nucleated RBC % (auto) Anion Gap Estim Creat Clear Calc 90.2 Estimated GFR > 60 POC Glucose 209 H Fasting Glucose Calcium Random Vancomycin 13.5 L 07/15/22 07/15/22 07/16/22 16:15 20:38 05:26 MCV 87.4 MCH 27.4 MCHC 31.3 RDW 13.8 Plt Count 313 MPV 10.5 Absolute Nucleated RBC 0.000 Nucleated RBC % (auto) 0.0 Anion Gap Estim Creat Clear Calc Estimated GFR POC Glucose 176 H 211 H Fasting Glucose Calcium Random Vancomycin 07/16/22 07/16/22 05:26 07:45 MCV MCH MCHC RDW Plt Count MPV Absolute Nucleated RBC Nucleated RBC % (auto) Anion Gap 13 Estim Creat Clear Calc 90.2 Estimated GFR > 60 POC Glucose 143 H Fasting Glucose 147 H Calcium 8.9 Random Vancomycin Assessment and Plan (1) Osteomyelitis of great toe of left foot: Status: Acute (2) PAD (peripheral artery disease): Status: Acute (3) Diabetes: Status: Acute (4) PAF (paroxysmal atrial fibrillation): Status: Acute Plan This is a 62-year-old male with a past medical history notable for atrial fibrillation anticoagulated on Xarelto, hypertension, hyperlipidemia, [id number] type 2 diabetes mellitus with a history of PUD. presented with worsening left first toe infection Osteomyelitis/wet gangrenous left great toe Nonhealing diabetic ulcer of left foot, exposed bone negative blood cultures. Continue IV antibiotics-Zosyn and vancomycin ordered s/p angio 07/14/22 - adequate flow, no intervention, plan for amputation today 07/16/22 PAD Continue statin DM with hyperglycemia insulin diabetic diet. Paroxysmal Atrial fibrillation apixaban 5 mg p.o. b.i.d.-oral anticoagulation on hold and patient on subcu Lovenox/therapeutic dose continue amio, cardizem Hypertension cardizem Hyperlipidemia statin DVT prophylaxis Lovenox therapeutic dose reason for continued hospitalization:ongoing iv abx, needs amp Time Spent With Patient Time: Total time managing care of this patient today ____ minutes. Quality Stroke Does the patient have a stroke diagnosis?: No VTE Prior VTE?: No VTE Risk Level:: Medical - moderate - high VTE Device Contraindication: N/A - Device Ordered VTE Drug Contraindication: N/A - Med Ordered
[2022-07-16] MEDS: 0.9 % Sodium Chloride Flush 3 ML SYRINGE IVFLUSH ×3 (09:02→21:49)
[2022-07-16] MEDS: Docusate Sodium 100 MG CAPSULE PO ×2 (09:02→21:50)
[2022-07-16] MEDS: Atorvastatin Calcium 20 MG TABLET PO (09:02)
[2022-07-16] MEDS: dilTIAZem HCL CD 240 MG CAP.ER.DEG PO (09:02)
[2022-07-16] MEDS: Gabapentin 300 MG CAPSULE PO ×2 (09:02→21:50)
[2022-07-16] MEDS: Amiodarone HCL 200 MG TABLET PO (09:02)
[2022-07-16 10:46] LABS: Glucose, Whole Blood 134 mg/dL (60-115)
--- NOTE | 2022-07-16 11:18 | PC.NURSE ---
dr liang and anesthesia aware pt recieved lovenox 6 am today okay to proceed
--- NOTE | 2022-07-16 11:56 | PC.NURSE ---
Pt. off the floor to OR via bed , accompanied by STEWARD/STEWARDESS SECOND.
--- NOTE | 2022-07-16 13:16 | P.OP_ITS ---
Operative Note Operative Note Date of Service: 07/16/22 Narrative: Operative note by [facility] Preoperative diagnosis: Left great toe diabetic foot ulcer 2. Osteomyelitis Postoperative diagnosis: Same Procedure: Left great toe ray amputation Surgeon:Carlos Duarte M.D. Building Components Designer: Jr Anesthesia: General Specimens: 1 Drains: None Estimated blood loss: Minimal Indications: 62-year-old diabetic gentleman presents for toe amputation. He has a nonhealing toe ulcer with exposed bone. He now presents for operative intervention. The patient has signed the informed consent after reviewing risks, complications, benefits, and alternatives previously discussed with the patient. The patient was given the opportunity to ask any additional questions or voice any concerns. All questions were answered to the patient's satisfaction. Procedure in detail: Patient was brought to the operating room prior to which a time-out was called for patient identification site verification. Left leg was prepped and draped in standard surgical fashion. [place] incision was created over the great toe. We went down beyond the metatarsal head. We dissected down and it was easily able to remove the great toe. Due to the loss of skin we had to take the metatarsal head. Using a power saw we transected the metatarsal head and remove this in its entirety once this was accomplished we filed down the sharp bony edge. We thoroughly irrigated the wound. We closed the tissue with 2-0 Polysorb. Finally skin with a nylon. Xeroform and a sterile dressing were applied. At the end the case sponge instrument counts were correct. Patient tolerated the procedure well. Returned to recovery with stable vitals. This note is constructed using voice recognition software. While every effort has been made to ensure accuracy, crayon molding machine operator errors may have been included. Thank you for allowing me to participate in the care of your patient. Yours sincerely, Carlos Duarte MD, FACS, R.P.V.I.
--- NOTE | 2022-07-16 13:20 | PM.EVENT ---
Event Note Date of Service: 07/16/22 Event Note: Patient underwent great toe amp without incident. Will plan for dressing change on Tuesday. If stable would hope to DC on p.o. antibiotics only. Time Spent With Patient Time: Total time managing care of this patient today ____ minutes.
--- NOTE | 2022-07-16 14:10 | PC.NURSE ---
Pt return from the OR, s/p L great toe amputation ; kerlix with elijah wrap dsg noted to site . A & O X4, denies having any pain, VSS.
[2022-07-16 16:21] LABS: Glucose, Whole Blood 181 mg/dL (60-115)
[2022-07-16] MEDS: Insulin Lispro 100 UNIT/ML 3 ML VIAL SUBCUT ×2 (16:41→21:50)
[2022-07-16 21:00] LABS: Glucose, Whole Blood 204 mg/dL (60-115)
[2022-07-16 21:38] LABS: Vancomycin Random 15.9 mcg/mL (15-20)
--- NOTE | 2022-07-16 21:46 | HE.PHANOTE ---
RE: fiordaliza Nurse called, pt was post-op so dose was given late; keeping dose at 0000,1200. Trough came back at 15.9; continue 1500mg Q12H. Next level 07/18/22 @1000
[2022-07-17] VITALS: BP 111/55; PULSE 80; RESP 17; TEMP 36.5; O2SAT 95
[2022-07-17] MEDS: vancomycin HCL 1,500 MG in 0.9 % Sodium Chloride 500 ML 333.33 MG IV ×2 (00:26→12:02)
[2022-07-17] MEDS: Piperacillin Sodium/Tazobactam 3.375 GM in 0.9 % Sodium Chloride 50 ML IV ×4 (02:22→20:50)
[2022-07-17 04:00] VITALS: BP 138/80; PULSE 84; RESP 17; TEMP 36.8; O2SAT 96
[2022-07-17] MEDS: oxyCODONE HCl Immed Release 5 MG TABLET PO (04:06)
[2022-07-17] MEDS: Enoxaparin Sodium 150 MG/ML SYRINGE 135 MG SUBCUT ×2 (06:14→17:59)
[2022-07-17 06:25] LABS: Hematocrit 37.9 % (42.0-52.0); Mean Corpuscular HGB Conc 31.7 g/dl (31.0-36.0); Mean Corpuscular Hemoglobin 27.5 pg (27.0-33.0); Mean Corpuscular Volume 86.7 fL (80.0-98.0); Mean Platelet Volume 10.8 fL (9.4-12.4); Platelet Count 256 X10*3/uL (160-400); Red Blood Count 4.37 X10*6/uL (4.60-5.80); Red Cell Distribution Width 13.8 % (11.0-16.0); White Blood Count 10.3 X10*3/uL (4.8-10.8)
[2022-07-17 06:33] LABS: Anion Gap 11 (12-20); Blood Urea Nitrogen 11 mg/dL (9-16); Calcium 8.5 mg/dL (8.4-10.2); Carbon Dioxide 26 mmol/L (22-29); Chloride 109 mmol/L (96-108); Estimated Glomerular Filt Rate > 60; Glucose Fasting 122 mg/dL (60-99); Potassium 4.2 mmol/L (3.3-5.1); Sodium 142 mmol/L (135-145)
--- NOTE | 2022-07-17 07:18 | HE.PHANOTE ---
Vancomycin Dosing Renal function is stable. Continue current regimen, vanco 1500 mg Q12G. Next trough 07/18 @ 1000. Yamini TiptonD
[2022-07-17 08:00] VITALS: BP 112/55; PULSE 82; RESP 18; TEMP 37.2; O2SAT 94
[2022-07-17 08:07] LABS: Glucose, Whole Blood 119 mg/dL (60-115)
[2022-07-17] MEDS: Atorvastatin Calcium 20 MG TABLET PO (08:36)
[2022-07-17] MEDS: Amiodarone HCL 200 MG TABLET PO (08:36)
[2022-07-17] MEDS: 0.9 % Sodium Chloride Flush 3 ML SYRINGE IVFLUSH ×3 (08:36→19:22)
[2022-07-17] MEDS: dilTIAZem HCL CD 240 MG CAP.ER.DEG PO (08:36)
[2022-07-17] MEDS: Docusate Sodium 100 MG CAPSULE PO ×2 (08:36→20:50)
[2022-07-17] MEDS: Gabapentin 300 MG CAPSULE PO ×2 (08:36→20:50)
--- NOTE | 2022-07-17 08:52 | HO.PM.IMPN ---
Subjective Subjective Date of Service: 07/17/22 Interval History: cc: toe infection interval history:ppain controlled Physical Exam Vital Signs: Vital Signs: Last Vital Signs Temp 98.9 F 07/17/22 08:00 Pulse 82 07/17/22 08:00 Resp 18 07/17/22 08:00 BP 112/55 L 07/17/22 08:00 Pulse Ox 94 07/17/22 08:00 O2 Del Method 07/17/22 08:00 O2 Flow Rate 2 07/16/22 14:27 BMI result Body Mass Index 47.0 General: AO X 3, no acute distress Resp: CTA bilateral, no accessory muscles used CVS: S1,S2,RRR GI: soft, non tender, non distended Neuro: motor grossly intact, alert Psych: appropriate affect, appropriate insight Objective Data Active Medications Acetaminophen (Acetaminophen 325 Mg Tablet) 650 mg PO Q6H PRN PRN Reason: Pain, Mild (Pain Scale 1-3) Amiodarone HCl (Amiodarone Hcl 200 Mg Tablet) 200 mg PO DAILY [facility] Last Admin: 07/17/22 08:36 Dose: 200 mg Documented By: CHAVO Atorvastatin Calcium (Atorvastatin Calcium 20 Mg Tablet) 20 mg PO DAILY [facility] Last Admin: 07/17/22 08:36 Dose: 20 mg Documented By: CHAVO Dextrose (Dextrose 50 % 25 Gm/50 Ml Syringe) 25 gm IVPUSH Q15M PRN; Protocol PRN Reason: per Hypoglycemia Standing Ord. Diltiazem HCl (Diltiazem Hcl Cd 240 Mg Cap.Er.Deg) 240 mg PO DAILY [facility]; Protocol Last Admin: 07/17/22 08:36 Dose: 240 mg Documented By: CHAVO Docusate Sodium (Docusate Sodium 100 Mg Capsule) 100 mg PO BID [facility] Last Admin: 07/17/22 08:36 Dose: 100 mg Documented By: CHAVO Enoxaparin Sodium (Enoxaparin Sodium 150 Mg/Ml Syringe) 135 mg 1 mg/kg (135 mg) SUBCUT Q12H [facility] Last Admin: 07/17/22 06:14 Dose: 135 mg Documented By: TORIBIO Fentanyl (Fentanyl Citrate/Pf 100 Mcg/2 Ml Vial) 50 mcg IVPUSH Q5M PRN; Protocol PRN Reason: Pain, Severe (Pain Scale 7-10) Fluticasone Propionate (Fluticasone Propionate Nasal 16 Gm [place]) 1 spray NOSTRIL-B BID PRN PRN Reason: congestion Gabapentin (Gabapentin 300 Mg Capsule) 300 mg PO BID [facility] Last Admin: 07/17/22 08:36 Dose: 300 mg Documented By: CHAVO Glucose (Glucose Gel 15 Gm Gel..Gram.) 15 gm PO Q15M PRN; Protocol PRN Reason: per Hypoglycemia Standing Ord. Piperacillin Sod/Tazobactam (Sod 3.375 gm/ Sodium Chloride) 50 mls @ 100 mls/hr IV Q6H [facility] Last Admin: 07/17/22 08:36 Dose: 100 mls/hr Documented By: CHAVO Vancomycin HCl 1,500 mg/ (Sodium Chloride) 500 mls @ 333.333 mls/hr IV Q12H [facility] Last Infusion: 07/17/22 02:07 Dose: 0 mls/hr Documented By: TORIBIO Promethazine HCl 12.5 mg/ (Sodium Chloride) 50.5 mls @ 202 mls/hr IV ONCE PRN PRN Reason: Nausea and Vomiting Insulin Human Lispro (Insulin Lispro 100 Unit/Ml 3 Ml Vial) 0 unit SUBCUT QIDACHS [facility]; Protocol Last Admin: 07/17/22 08:03 Dose: Not Given Documented By: CHAVO Non-Admin Reason: No Insulin Coverage Oxycodone HCl (Oxycodone Hcl Immed Release 5 Mg Tablet) 5 mg PO Q4H PRN PRN Reason: Pain, Moderate (Pain Scale 4-6 Last Admin: 07/17/22 04:06 Dose: 5 mg Documented By: TORIBIO Oxycodone HCl (Oxycodone Hcl Immed Release 5 Mg Tablet) 5 mg PO ONCE PRN PRN Reason: Pain, Severe (Pain Scale 7-10) Pharmacy Consult (Consult Rx Perform Med Rec) 1 each MISCELLANE ONCE PRN PRN Reason: Consult order Pharmacy Consult (Consult Rx Perform Med Rec) 1 each MISCELLANE ONCE PRN PRN Reason: Consult order Pharmacy Consult (Consult Rx Vancomycin Dosing) 1 each MISCELLANE DAILY PRN PRN Reason: Consult order Senna (Sennosides 8.6 Mg Tablet) 17.2 mg PO BEDTIME PRN PRN Reason: Constipation Sodium Chloride (0.9 % Sodium Chloride Flush 3 Ml Syringe) 3 ml IVFLUSH QSHIFT [facility] Last Admin: 07/17/22 08:36 Dose: 3 ml Documented By: CHAVO Labs 07/17/22 05:59 07/17/22 05:59 Labs: Laboratory Results - last 24 hr 07/16/22 07/16/22 07/16/22 10:42 16:13 20:50 MCV MCH MCHC RDW Plt Count MPV Absolute Nucleated RBC Nucleated RBC % (auto) Anion Gap Estim Creat Clear Calc Estimated GFR POC Glucose 134 H 181 H 204 H Fasting Glucose Calcium Random Vancomycin 07/16/22 07/17/22 07/17/22 20:57 05:59 05:59 MCV 86.7 MCH 27.5 MCHC 31.7 RDW 13.8 Plt Count 256 MPV 10.8 Absolute Nucleated RBC 0.000 Nucleated RBC % (auto) 0.0 Anion Gap 11 L Estim Creat Clear Calc 98.0 Estimated GFR > 60 POC Glucose Fasting Glucose 122 H Calcium 8.5 Random Vancomycin 15.9 07/17/22 07:59 MCV MCH MCHC RDW Plt Count MPV Absolute Nucleated RBC Nucleated RBC % (auto) Anion Gap Estim Creat Clear Calc Estimated GFR POC Glucose 119 H Fasting Glucose Calcium Random Vancomycin Assessment and Plan (1) Osteomyelitis of great toe of left foot: Status: Acute (2) PAD (peripheral artery disease): Status: Acute (3) Diabetes: Status: Acute (4) PAF (paroxysmal atrial fibrillation): Status: Acute Plan This is a 62-year-old male with a past medical history notable for atrial fibrillation anticoagulated on Xarelto, hypertension, hyperlipidemia, isw-zkkfrik-cjzfddqyn type 2 diabetes mellitus with a history of PUD. presented with worsening left first toe infection Osteomyelitis/wet gangrenous left great toe Nonhealing diabetic ulcer of left foot, exposed bone negative blood cultures. Continue IV antibiotics-Zosyn and vancomycin ordered s/p angio 07/14/22 - adequate flow, no intervention, s/p 1st toe ray amputation 07/16/22 PAD Continue statin DM with hyperglycemia insulin diabetic diet. Paroxysmal Atrial fibrillation apixaban 5 mg p.o. b.i.d.-oral anticoagulation on hold and patient on subcu Lovenox/therapeutic dose continue amio, cardizem Hypertension cardizem Hyperlipidemia statin DVT prophylaxis Lovenox therapeutic dose reason for continued hospitalization:monitor post amp for bleeding Time Spent With Patient Time: Total time managing care of this patient today ____ minutes. Quality Stroke Does the patient have a stroke diagnosis?: No VTE Prior VTE?: No VTE Risk Level:: Medical - moderate - high VTE Device Contraindication: N/A - Device Ordered VTE Drug Contraindication: N/A - Med Ordered
[2022-07-17 10:28] LABS: Estimated Glomerular Filt Rate > 60
[2022-07-17 11:28] LABS: Glucose, Whole Blood 254 mg/dL (60-115)
--- NOTE | 2022-07-17 11:41 | HO.POSTANES ---
Post Anesthesia Evaluation Post Anesthesia Evaluation Vital Signs: Vital Signs Temp Pulse Resp BP Pulse Ox O2 Del Method 07/17/22 08:00 98.9 F 82 18 112/55 L 94 Room Air 07/17/22 04:00 98.2 F 84 17 138/80 96 Room Air 07/17/22 00:00 97.7 F 80 17 111/55 L 95 Room Air Anesthesia: General LMA Mental Status: Awake Pain Control: Satisfactory Nausea/Vomiting: None Hydration: Adequate Anesthesia-Related Issues: No Anes. Related Issues
[2022-07-17] MEDS: Insulin Lispro 100 UNIT/ML 3 ML VIAL SUBCUT ×3 (12:02→21:11)
[2022-07-17 15:19] VITALS: BP 120/63; PULSE 80; RESP 16; TEMP 37.2; O2SAT 93
[2022-07-17 15:43] LABS: Glucose, Whole Blood 225 mg/dL (60-115)
[2022-07-17 19:37] VITALS: BP 126/60; PULSE 86; RESP 16; TEMP 37.1; O2SAT 94
[2022-07-17 20:53] LABS: Glucose, Whole Blood 199 mg/dL (60-115)
[2022-07-18] VITALS: BP 128/64; PULSE 84; RESP 18; TEMP 36.2; O2SAT 94
[2022-07-18] MEDS: vancomycin HCL 1,500 MG in 0.9 % Sodium Chloride 500 ML 333.33 MG IV ×3 (00:11→23:43)
[2022-07-18 03:48] VITALS: BP 101/55; PULSE 84; RESP 18; TEMP 36.4; O2SAT 96
[2022-07-18] MEDS: Enoxaparin Sodium 150 MG/ML SYRINGE 135 MG SUBCUT ×2 (06:05→18:12)
[2022-07-18 08:00] VITALS: BP 128/61; PULSE 81; RESP 18; TEMP 37; O2SAT 95
[2022-07-18] MEDS: Atorvastatin Calcium 20 MG TABLET PO (08:05)
[2022-07-18] MEDS: dilTIAZem HCL CD 240 MG CAP.ER.DEG PO (08:05)
[2022-07-18] MEDS: Docusate Sodium 100 MG CAPSULE PO ×2 (08:05→21:06)
[2022-07-18] MEDS: Amiodarone HCL 200 MG TABLET PO (08:05)
[2022-07-18] MEDS: Gabapentin 300 MG CAPSULE PO ×2 (08:05→21:05)
[2022-07-18] MEDS: 0.9 % Sodium Chloride Flush 3 ML SYRINGE IVFLUSH ×3 (08:06→21:06)
[2022-07-18] MEDS: Insulin Lispro 100 UNIT/ML 3 ML VIAL SUBCUT ×4 (08:06→21:06)
--- NOTE | 2022-07-18 08:30 | P.PNIM_ITS ---
Subjective Subjective Date of Service: 07/18/22 Interval History: cc: toe infection interval history:ppain controlled Physical Exam Vital Signs: Vital Signs: Last Vital Signs Temp 97.5 F 07/18/22 03:48 Pulse 84 07/18/22 03:48 Resp 18 07/18/22 03:48 BP 101/55 L 07/18/22 03:48 Pulse Ox 96 07/18/22 03:48 O2 Del Method 07/18/22 03:48 O2 Flow Rate 2 07/16/22 14:27 BMI result Body Mass Index 47.0 General: AO X 3, no acute distress Resp: CTA bilateral, no accessory muscles used CVS: S1,S2,RRR GI: soft, non tender, non distended Neuro: motor grossly intact, alert Psych: appropriate affect, appropriate insight Objective Data Active Medications Acetaminophen (Acetaminophen 325 Mg Tablet) 650 mg PO Q6H PRN PRN Reason: Pain, Mild (Pain Scale 1-3) Amiodarone HCl (Amiodarone Hcl 200 Mg Tablet) 200 mg PO DAILY [facility] [place] Last Admin: 07/18/22 08:05 Dose: 200 mg Documented By: CHAVO Atorvastatin Calcium (Atorvastatin Calcium 20 Mg Tablet) 20 mg PO DAILY [facility] [place] Last Admin: 07/18/22 08:05 Dose: 20 mg Documented By: CHAVO Dextrose (Dextrose 50 % 25 Gm/50 Ml Syringe) 25 gm IVPUSH Q15M PRN; Protocol PRN Reason: per Hypoglycemia Standing Ord. Diltiazem HCl (Diltiazem Hcl Cd 240 Mg Cap.Er.Deg) 240 mg PO DAILY [facility] [place]; Protocol Last Admin: 07/18/22 08:05 Dose: 240 mg Documented By: CHAVO Docusate Sodium (Docusate Sodium 100 Mg Capsule) 100 mg PO BID [facility] [place] Last Admin: 07/18/22 08:05 Dose: 100 mg Documented By: CHAVO Enoxaparin Sodium (Enoxaparin Sodium 150 Mg/Ml Syringe) 135 mg 1 mg/kg (135 mg) SUBCUT Q12H [facility] [place] Last Admin: 07/18/22 06:05 Dose: 135 mg Documented By: TORIBIO Fentanyl (Fentanyl Citrate/Pf 100 Mcg/2 Ml Vial) 50 mcg IVPUSH Q5M PRN; Protocol PRN Reason: Pain, Severe (Pain Scale 7-10) Fluticasone Propionate (Fluticasone Propionate Nasal 16 Gm [place]) 1 spray NOSTRIL-B BID PRN PRN Reason: congestion Gabapentin (Gabapentin 300 Mg Capsule) 300 mg PO BID [facility] [place] Last Admin: 07/18/22 08:05 Dose: 300 mg Documented By: CHAVO Glucose (Glucose Gel 15 Gm Gel..Gram.) 15 gm PO Q15M PRN; Protocol PRN Reason: per Hypoglycemia Standing Ord. Vancomycin HCl 1,500 mg/ (Sodium Chloride) 500 mls @ 333.333 mls/hr IV Q12H [facility] [place] Last Infusion: 07/18/22 01:45 Dose: 0 mls/hr Documented By: TORIBIO Promethazine HCl 12.5 mg/ (Sodium Chloride) 50.5 mls @ 202 mls/hr IV ONCE PRN PRN Reason: Nausea and Vomiting Insulin Human Lispro (Insulin Lispro 100 Unit/Ml 3 Ml Vial) 0 unit SUBCUT QIDACHS [facility] [place]; Protocol Last Admin: 07/18/22 08:06 Dose: 2 unit Documented By: CHAVO Oxycodone HCl (Oxycodone Hcl Immed Release 5 Mg Tablet) 5 mg PO Q4H PRN PRN Reason: Pain, Moderate (Pain Scale 4-6 Last Admin: 07/17/22 04:06 Dose: 5 mg Documented By: TORIBIO Oxycodone HCl (Oxycodone Hcl Immed Release 5 Mg Tablet) 5 mg PO ONCE PRN PRN Reason: Pain, Severe (Pain Scale 7-10) Pharmacy Consult (Consult Rx Perform Med Rec) 1 each MISCELLANE ONCE PRN PRN Reason: Consult order Pharmacy Consult (Consult Rx Perform Med Rec) 1 each MISCELLANE ONCE PRN PRN Reason: Consult order Senna (Sennosides 8.6 Mg Tablet) 17.2 mg PO BEDTIME PRN PRN Reason: Constipation Sodium Chloride (0.9 % Sodium Chloride Flush 3 Ml Syringe) [facility] Last Admin: 07/18/22 08:06 Dose: 3 ml Documented By: CHAVO Labs 07/17/22 05:59 07/17/22 10:00 Labs: Laboratory Results - last 24 hr 07/17/22 07/17/22 07/17/22 10:00 11:21 15:38 Estim Creat Clear Calc 91.0 Estimated GFR > 60 POC Glucose 254 H 225 H 07/17/22 20:38 Estim Creat Clear Calc Estimated GFR POC Glucose 199 H Assessment and Plan (1) Osteomyelitis of great toe of left foot: Status: Acute (2) PAD (peripheral artery disease): Status: Acute (3) Diabetes: Status: Acute (4) PAF (paroxysmal atrial fibrillation): Status: Acute Plan This is a 62-year-old male with a past medical history notable for atrial fibrillation anticoagulated on Xarelto, hypertension, hyperlipidemia, [id number] type 2 diabetes mellitus with a history of PUD. presented with worsening left first toe infection Osteomyelitis/wet gangrenous left great toe Nonhealing diabetic ulcer of left foot, exposed bone negative blood cultures. Continue IV antibiotics-Zosyn and vancomycin ordered s/p angio 07/14/22 - adequate flow, no intervention, s/p 1st toe ray amputation 07/16/22 PAD Continue statin DM with hyperglycemia insulin diabetic diet. Paroxysmal Atrial fibrillation apixaban 5 mg p.o. b.i.d.-oral anticoagulation on hold and patient on subcu Lovenox/therapeutic dose continue amio, cardizem Hypertension cardizem Hyperlipidemia statin DVT prophylaxis Lovenox therapeutic dose reason for continued hospitalization:monitor post amp for bleeding Time Spent With Patient Time: Total time managing care of this patient today ____ minutes. Quality Stroke Does the patient have a stroke diagnosis?: No VTE Prior VTE?: No VTE Risk Level:: Medical - moderate - high VTE Device Contraindication: N/A - Device Ordered VTE Drug Contraindication: N/A - Med Ordered
[2022-07-18 08:32] LABS: Glucose, Whole Blood 151 mg/dL (60-115)
[2022-07-18 10:13] LABS: Creatinine Clr Calc Pharmacy 101.9; Estimated Glomerular Filt Rate > 60
--- NOTE | 2022-07-18 10:55 | HE.PHANOTE ---
Vancomycin Dosing Level therapeutic at 17. Continue current regimen. Renal function is overall stable. Next level is scheduled for 07/19 @ 2138. Yamini TiptonD
[2022-07-18 11:44] LABS: Glucose, Whole Blood 187 mg/dL (60-115)
[2022-07-18 15:46] VITALS: BP 127/62; PULSE 82; RESP 16; TEMP 36.7; O2SAT 96
[2022-07-18 16:29] LABS: Glucose, Whole Blood 179 mg/dL (60-115)
[2022-07-18 19:37] VITALS: BP 118/60; PULSE 82; RESP 16; TEMP 36.2; O2SAT 97
[2022-07-18 20:30] LABS: Glucose, Whole Blood 174 mg/dL (60-115)
[2022-07-19 04:00] VITALS: BP 115/71; PULSE 80; RESP 18; TEMP 37.1; O2SAT 98
[2022-07-19] MEDS: Enoxaparin Sodium 150 MG/ML SYRINGE 135 MG SUBCUT (06:10)
[2022-07-19 07:20] LABS: Anion Gap 13 (12-20); Blood Urea Nitrogen 13 mg/dL (9-16); Calcium 8.6 mg/dL (8.4-10.2); Carbon Dioxide 27 mmol/L (22-29); Chloride 107 mmol/L (96-108); Creatinine Clr Calc Pharmacy 115.8; Estimated Glomerular Filt Rate > 60; Glucose Fasting 107 mg/dL (60-99); Potassium 4.3 mmol/L (3.3-5.1); Sodium 143 mmol/L (135-145)
[2022-07-19 07:24] LABS: Hematocrit 39.1 % (42.0-52.0); Hemoglobin 12.1 g/dl (14.0-18.0); Mean Corpuscular HGB Conc 30.9 g/dl (31.0-36.0); Mean Corpuscular Hemoglobin 27.4 pg (27.0-33.0); Mean Corpuscular Volume 88.5 fL (80.0-98.0); Mean Platelet Volume 11.3 fL (9.4-12.4); Platelet Count 255 X10*3/uL (160-400); Red Blood Count 4.42 X10*6/uL (4.60-5.80); Red Cell Distribution Width 13.9 % (11.0-16.0); White Blood Count 8.9 X10*3/uL (4.8-10.8)
[2022-07-19 07:33] LABS: Glucose, Whole Blood 113 mg/dL (60-115)
[2022-07-19 08:00] VITALS: BP 119/59; PULSE 81; RESP 18; TEMP 36.5; O2SAT 93
--- NOTE | 2022-07-19 08:19 | P.PNIM_ITS ---
Subjective Subjective Date of Service: 07/19/22 Interval History: cc: toe infection interval history:pain controlled, some bleeding through dressing Physical Exam Vital Signs: Vital Signs: Last Vital Signs Temp 98.7 F 07/19/22 04:00 Pulse 80 07/19/22 04:00 Resp 18 07/19/22 04:00 BP 115/71 07/19/22 04:00 Pulse Ox 98 07/19/22 04:00 O2 Del Method 07/19/22 04:00 O2 Flow Rate 2 07/16/22 14:27 BMI result Body Mass Index 47.0 General: AO X 3, no acute distress Resp: CTA bilateral, no accessory muscles used CVS: S1,S2,RRR GI: soft, non tender, non distended Neuro: motor grossly intact, alert Psych: appropriate affect, appropriate insight Objective Data Active Medications Acetaminophen (Acetaminophen 325 Mg Tablet) 650 mg PO Q6H PRN PRN Reason: Pain, Mild (Pain Scale 1-3) Amiodarone HCl (Amiodarone Hcl 200 Mg Tablet) 200 mg PO DAILY [facility] Last Admin: 07/18/22 08:05 Dose: 200 mg Documented By: CHAVO Atorvastatin Calcium (Atorvastatin Calcium 20 Mg Tablet) 20 mg PO DAILY [facility] Last Admin: 07/18/22 08:05 Dose: 20 mg Documented By: CHAVO Dextrose (Dextrose 50 % 25 Gm/50 Ml Syringe) 25 gm IVPUSH Q15M PRN; Protocol PRN Reason: per Hypoglycemia Standing Ord. Diltiazem HCl (Diltiazem Hcl Cd 240 Mg Cap.Er.Deg) 240 mg PO DAILY [facility]; Protocol Last Admin: 07/18/22 08:05 Dose: 240 mg Documented By: CHAVO Docusate Sodium (Docusate Sodium 100 Mg Capsule) 100 mg PO BID [facility] Last Admin: 07/18/22 21:06 Dose: 100 mg Documented By: MAINOR Enoxaparin Sodium (Enoxaparin Sodium 150 Mg/Ml Syringe) 135 mg 1 mg/kg (135 mg) SUBCUT Q12H [facility] Last Admin: 07/19/22 06:10 Dose: 135 mg Documented By: MAINOR Fentanyl (Fentanyl Citrate/Pf 100 Mcg/2 Ml Vial) 50 mcg IVPUSH Q5M PRN; Protocol PRN Reason: Pain, Severe (Pain Scale 7-10) Fluticasone Propionate (Fluticasone Propionate Nasal 16 Gm [place]) 1 spray NOSTRIL-B BID PRN PRN Reason: congestion Gabapentin (Gabapentin 300 Mg Capsule) 300 mg PO BID [facility] Last Admin: 07/18/22 21:05 Dose: 300 mg Documented By: MAINOR Glucose (Glucose Gel 15 Gm Gel..Gram.) 15 gm PO Q15M PRN; Protocol PRN Reason: per Hypoglycemia Standing Ord. Vancomycin HCl 1,500 mg/ (Sodium Chloride) 500 mls @ 333.333 mls/hr IV Q12H [facility] Last Infusion: 07/19/22 01:20 Dose: 0 mls/hr Documented By: MAINOR Promethazine HCl 12.5 mg/ (Sodium Chloride) 50.5 mls @ 202 mls/hr IV ONCE PRN PRN Reason: Nausea and Vomiting Insulin Human Lispro (Insulin Lispro 100 Unit/Ml 3 Ml Vial) 0 unit SUBCUT QIDACHS [facility]; Protocol Last Admin: 07/18/22 21:06 Dose: 2 unit Documented By: MAINOR Oxycodone HCl (Oxycodone Hcl Immed Release 5 Mg Tablet) 5 mg PO Q4H PRN PRN Reason: Pain, Moderate (Pain Scale 4-6 Last Admin: 07/17/22 04:06 Dose: 5 mg Documented By: TORIBIO Oxycodone HCl (Oxycodone Hcl Immed Release 5 Mg Tablet) 5 mg PO ONCE PRN PRN Reason: Pain, Severe (Pain Scale 7-10) Pharmacy Consult (Consult Rx Perform Med Rec) 1 each MISCELLANE ONCE PRN PRN Reason: Consult order Pharmacy Consult (Consult Rx Perform Med Rec) 1 each MISCELLANE ONCE PRN PRN Reason: Consult order Senna (Sennosides 8.6 Mg Tablet) 17.2 mg PO BEDTIME PRN PRN Reason: Constipation Sodium Chloride (0.9 % Sodium Chloride Flush 3 Ml Syringe) 3 ml IVFLUSH QSHIFT [facility] Last Admin: 07/18/22 21:06 Dose: 3 ml Documented By: MAINOR Labs 07/19/22 06:00 07/19/22 06:00 Labs: Laboratory Results - last 24 hr 07/18/22 07/18/22 07/18/22 07:41 09:46 09:46 MCV MCH MCHC RDW Plt Count MPV Absolute Nucleated RBC Nucleated RBC % (auto) Anion Gap Estim Creat Clear Calc 101.9 Estimated GFR > 60 POC Glucose 151 H Fasting Glucose Calcium Vancomycin Trough 17.0 07/18/22 07/18/22 07/18/22 11:40 16:26 20:22 MCV MCH MCHC RDW Plt Count MPV Absolute Nucleated RBC Nucleated RBC % (auto) Anion Gap Estim Creat Clear Calc Estimated GFR POC Glucose 187 H 179 H 174 H Fasting Glucose Calcium Vancomycin Trough 07/19/22 07/19/22 07/19/22 06:00 06:00 07:16 MCV 88.5 MCH 27.4 MCHC 30.9 L RDW 13.9 Plt Count 255 MPV 11.3 Absolute Nucleated RBC 0.000 Nucleated RBC % (auto) 0.0 Anion Gap 13 Estim Creat Clear Calc 115.8 Estimated GFR > 60 POC Glucose 113 Fasting Glucose 107 H Calcium 8.6 Vancomycin Trough Assessment and Plan (1) Osteomyelitis of great toe of left foot: Status: Acute (2) PAD (peripheral artery disease): Status: Acute (3) Diabetes: Status: Acute (4) PAF (paroxysmal atrial fibrillation): Status: Acute Plan This is a 62-year-old male with a past medical history notable for atrial fibrillation anticoagulated on Xarelto, hypertension, hyperlipidemia, [id number] type 2 diabetes mellitus with a history of PUD. presented with worsening left first toe infection Osteomyelitis/wet gangrenous left great toe Nonhealing diabetic ulcer of left foot, exposed bone negative blood cultures. Continue IV antibiotics-Zosyn and vancomycin ordered s/p angio 07/14/22 - adequate flow, no intervention, s/p 1st toe ray amputation 07/16/22 still with some bleeding, hgb and vitals stable. PAD Continue statin DM with hyperglycemia insulin diabetic diet. Paroxysmal Atrial fibrillation apixaban 5 mg p.o. b.i.d.-oral anticoagulation on hold and patient on subcu Lovenox/therapeutic dose continue amio, cardizem Hypertension cardizem Hyperlipidemia statin DVT prophylaxis Lovenox therapeutic dose reason for continued hospitalization:monitor post amp for bleeding Time Spent With Patient Time: Total time managing care of this patient today ____ minutes. Quality Stroke Does the patient have a stroke diagnosis?: No VTE Prior VTE?: No VTE Risk Level:: Medical - moderate - high VTE Device Contraindication: N/A - Device Ordered VTE Drug Contraindication: N/A - Med Ordered
[2022-07-19] MEDS: Gabapentin 300 MG CAPSULE PO ×2 (08:57→23:06)
[2022-07-19] MEDS: Atorvastatin Calcium 20 MG TABLET PO (08:57)
[2022-07-19] MEDS: dilTIAZem HCL CD 240 MG CAP.ER.DEG PO (08:57)
[2022-07-19] MEDS: 0.9 % Sodium Chloride Flush 3 ML SYRINGE IVFLUSH ×3 (08:58→23:10)
[2022-07-19] MEDS: Docusate Sodium 100 MG CAPSULE PO ×2 (08:58→23:06)
[2022-07-19] MEDS: Amiodarone HCL 200 MG TABLET PO (08:58)
--- NOTE | 2022-07-19 09:01 | HO.VASCPN ---
Subjective Subjective Date of Service: 07/19/22 Patient reports: no new complaints Interval history: 62-year-old gentleman status post left great toe amp. Had bleeding throughout the weekend and the dressing was reinforced several times. Foot was saturated this morning. Dressing was subsequently change. Of note platelets are within normal limits. He is currently on Lovenox which appears to be a therapeutic dose. Now for follow-up. Physical Exam Vital Signs: Vital Signs: Last Vital Signs Temp 97.7 F 07/19/22 08:00 Pulse 81 07/19/22 08:00 Resp 18 07/19/22 08:00 BP 119/59 L 07/19/22 08:00 Pulse Ox 93 07/19/22 08:00 O2 Del Method 07/19/22 08:00 O2 Flow Rate 2 07/16/22 14:27 BMI result Body Mass Index 47.0 Const: General: cooperative, healthy appearing and no acute distress Orientation/consciousness: oriented to person, oriented to place and oriented to time HEENT: Head: Yes normal to inspection Neck: Carotids: no bruits Chest: Chest palpation & inspection: normal inspection of the chest Resp: Effort & Inspection: normal respiratory effort and able to speak in complete sentences Auscultation: clear to auscultation bilaterally Cardio: Rate: regular rate Heart sounds: S1 normal heart sound present and S2 normal heart sound present GI: Inspection: Yes normal to inspection Skin: Other: Toe amputation site appears to be within normal limits. No evidence of infection. Healing well. Still persistent bleeding from incision site. General skin exam: no rashes or lesions noted Wounds: no wounds Neuro: General: oriented to person, oriented to place, oriented to time and CN's II-XI intact bilaterally Extrem: General: Yes normal to inspection, Yes full ROM and Yes no clubbing, cyanosis or edema Psych: Appearance: grossly normal and well kempt Speech and movement: Normal speech and movement present Affect: normal affect Progress Note: A&P Assessment and plan (1) Amputation of left great toe: Status: Acute Plan In short patient is doing reasonably well status post left toe amputation. Amputation site appears to be doing extremely well. Of concern is the persistent bleeding. Repeat coags have been ordered. Will hold Lovenox for the next 24 hours to obtain hemostasis. Once bleeding stops can safely be discharged. If stable anticipate discharge within the next day or 2. Thank you for allowing us to assist in his care. Time Spent With Patient Time: Total time managing care of this patient today ____ minutes. Procedures Date of Service Date of Service: 07/19/22 Quality Stroke Does the patient have a stroke diagnosis?: No VTE Prior VTE?: No VTE Risk Level:: Medical - moderate - high VTE Device Contraindication: N/A - Device Ordered VTE Drug Contraindication: N/A - Med Ordered
[2022-07-19 09:26] LABS: INTERNATIONAL NORM RATIO 1.2 (0.9-1.1); Prothrombin Time 13.8 SEC (10.0-13.1)
[2022-07-19 09:29] LABS: Partial Thromboplastin Time 39.6 SEC (26.0-36.4)
[2022-07-19 09:41] LABS: Creatinine Clr Calc Pharmacy 109.6; Estimated Glomerular Filt Rate > 60
[2022-07-19 11:41] LABS: Glucose, Whole Blood 208 mg/dL (60-115)
[2022-07-19] MEDS: Insulin Lispro 100 UNIT/ML 3 ML VIAL SUBCUT ×3 (12:25→23:06)
[2022-07-19] MEDS: vancomycin HCL 1,500 MG in 0.9 % Sodium Chloride 500 ML 333.33 MG IV (12:30)
--- NOTE | 2022-07-19 14:48 | PM.EVENT ---
Event Note Date of Service: 07/19/22 Event Note: doesnt need six weeks IV antibiotics if all affected bone removed Time Spent With Patient Time: Total time managing care of this patient today ____ minutes.
[2022-07-19 16:00] VITALS: BP 117/65; PULSE 75; RESP 18; TEMP 36.8; O2SAT 96
[2022-07-19 16:53] LABS: Glucose, Whole Blood 190 mg/dL (60-115)
[2022-07-19 20:00] VITALS: BP 130/76; PULSE 78; RESP 15; TEMP 36.1; O2SAT 94
[2022-07-19 21:01] LABS: Glucose, Whole Blood 184 mg/dL (60-115)
[2022-07-19 22:31] LABS: Vancomycin Trough 17.3 mcg/mL (10.0-20.0)
[2022-07-20] MEDS: vancomycin HCL 1,500 MG in 0.9 % Sodium Chloride 500 ML 333.33 MG IV (00:22)
[2022-07-20 03:00] VITALS: BP 117/57; PULSE 80; RESP 16; TEMP 36.4; O2SAT 95
[2022-07-20] MEDS: oxyCODONE HCl Immed Release 5 MG TABLET PO (05:20)
[2022-07-20 06:38] LABS: Hematocrit 38.2 % (42.0-52.0); Hemoglobin 11.9 g/dl (14.0-18.0); Mean Corpuscular HGB Conc 31.2 g/dl (31.0-36.0); Mean Corpuscular Hemoglobin 27.1 pg (27.0-33.0); Mean Platelet Volume 11.2 fL (9.4-12.4); Platelet Count 246 X10*3/uL (160-400); Red Blood Count 4.39 X10*6/uL (4.60-5.80); Red Cell Distribution Width 13.9 % (11.0-16.0); White Blood Count 8.3 X10*3/uL (4.8-10.8)
[2022-07-20 06:59] LABS: Anion Gap 12 (12-20); Blood Urea Nitrogen 15 mg/dL (9-16); Calcium 8.6 mg/dL (8.4-10.2); Carbon Dioxide 25 mmol/L (22-29); Chloride 108 mmol/L (96-108); Creatinine Clr Calc Pharmacy 106.1; Estimated Glomerular Filt Rate > 60; Glucose Fasting 126 mg/dL (60-99); Potassium 4.4 mmol/L (3.3-5.1); Sodium 141 mmol/L (135-145)
[2022-07-20 07:31] LABS: Glucose, Whole Blood 111 mg/dL (60-115)
[2022-07-20 07:48] VITALS: BP 106/61; PULSE 81; RESP 17; TEMP 36.6; O2SAT 96
[2022-07-20] MEDS: Amiodarone HCL 200 MG TABLET PO (08:15)
[2022-07-20] MEDS: dilTIAZem HCL CD 240 MG CAP.ER.DEG PO (08:15)
[2022-07-20] MEDS: Atorvastatin Calcium 20 MG TABLET PO (08:15)
[2022-07-20] MEDS: 0.9 % Sodium Chloride Flush 3 ML SYRINGE IVFLUSH (08:15)
[2022-07-20] MEDS: Docusate Sodium 100 MG CAPSULE PO (08:15)
[2022-07-20] MEDS: Gabapentin 300 MG CAPSULE PO (08:15)
--- NOTE | 2022-07-20 09:02 | MHC.CM.PN ---
[facility] UNABLE TO ACCEPT. REFERRAL TO [facility]
--- NOTE | 2022-07-20 10:23 | HO.VASCPN ---
Subjective Subjective Date of Service: 07/20/22 Patient reports: no new complaints and feels better Interval history: 62-year-old gentleman status post great toe amp. Postoperatively he did have some bleeding issues. It appears to be significantly better controlled. Anticoagulants have been stopped for 24 hours and appears to have controlled the bleeding. No active issues at the current time. Concerned about work. Stable for discharge. Physical Exam Vital Signs: Vital Signs: Last Vital Signs Temp 97.8 F 07/20/22 07:48 Pulse 81 07/20/22 07:48 Resp 17 07/20/22 07:48 BP 106/61 07/20/22 07:48 Pulse Ox 96 07/20/22 07:48 O2 Del Method 07/20/22 07:48 O2 Flow Rate 2 07/16/22 14:27 BMI result Body Mass Index 47.0 Const: General: cooperative, healthy appearing and no acute distress Orientation/consciousness: oriented to person, oriented to place and oriented to time HEENT: Head: Yes normal to inspection Neck: Carotids: no bruits Chest: Chest palpation & inspection: normal inspection of the chest Resp: Effort & Inspection: normal respiratory effort and able to speak in complete sentences Auscultation: clear to auscultation bilaterally Cardio: Rate: regular rate Heart sounds: S1 normal heart sound present and S2 normal heart sound present GI: Inspection: Yes normal to inspection Skin: General skin exam: no rashes or lesions noted Wounds: amputation site (Left great toe amp - dressing clean dry intact) Neuro: General: oriented to person, oriented to place, oriented to time and CN's II-XI intact bilaterally Extrem: General: Yes normal to inspection, Yes full ROM and Yes no clubbing, cyanosis or edema Psych: Appearance: grossly normal and well kempt Speech and movement: Normal speech and movement present Affect: normal affect Progress Note: A&P Assessment and plan (1) Amputation of left great toe: Status: Acute Assessment and Plan: In short patient is doing extremely well status post left great toe amp. Stable from my perspective for discharge. Can resume Eliquis tomorrow. In addition would recommend 7 days of Keflex 500 mg b.i.d.. He can see me in approximately 2 weeks for suture and staple removal. Thank you for allowing us to assist in his care. If there are any questions or concerns please do not hesitate to contact us. Time Spent With Patient Time: Total time managing care of this patient today ____ minutes. Procedures Date of Service Date of Service: 07/20/22 Quality Stroke Does the patient have a stroke diagnosis?: No VTE Prior VTE?: No VTE Risk Level:: Medical - moderate - high VTE Device Contraindication: N/A - Device Ordered VTE Drug Contraindication: N/A - Med Ordered
--- NOTE | 2022-07-20 10:23 | PM.DS ---
DS: Providers Provider Date of Service: 07/20/22 Date of admission: 07/07/22 16:35 Primary care physician: Loretta Guevara MD Consults: 07/07/22 17:15 Consult to Vascular Surgery Routine Consulting Provider: Carlos Duarte Reason for consultation: Osteomyelitis/gangrenous left great toe Has provider been notified: No 07/11/22 07:27 Consult to Infectious Diseases Routine Consulting Provider: Precious Macias Reason for consultation: Osteomyelitis for your kind eval and rec. DS: Diagnosis Discharge Diagnosis (1) Amputation of left great toe: Status: Acute DS: Summary Hospital Course Hospital Course: from initial hpi: 62-year-old male with a past medical history as noted below who presented to the emergency department referred from [facility] due to left great toe wound worsening in which he describes as a ?blood blister? on his left toe.? Patient reports he has been followed by the wound clinic and he was also seen by vascular surgeon Dr. Duarte in the office on 07/01/2022 where there were concerns for wound penetration to bone and recommendations were to have a stent placed.? Patient reports that he did not have a stent placed at that time as he was ?nervous? and wanted to go home to think about it. Left toes x-ray:? Evidence of osteomyelitis.? Soft tissue defect as described above. Initial laboratory results:? WBC is 14.9, ESR 69, BUN/creatinine 19/1.36, random glucose 185, alk-phos 133, CRP 9.17, SARs COVID-19 not detected. In the emergency department the above is performed, surgery was consulted patient received 2 g vancomycin.? The decision was made to admit patient for medical management. hospital course: Patient was admitted for osteomyelitis/wet gangrenous left great toe due to diabetes. He was treated with IV vancomycin Zosyn. He underwent angiogram 07/14/2022 with adequate flow and no intervention. He underwent 1st toe ray amputation 07/16/2022. He had some bleeding postoperatively without a significant drop in hemoglobin, his anticoagulation was held and bleeding discontinued. He will restart anticoagulation on 07/21/2022. He will continue on statin. For his diabetes with hyperglycemia was continued on insulin. For paroxysmal atrial fibrillation he was continued on amiodarone and diltiazem. Eliquis will be restarted on day after discharge. Hypertension was continued on Cardizem. For per lipidemia is continued on statin. Patient will be discharged home with visiting nurse services. Time Spent with Patient Time attestation: Total time managing care of this patient today ____ minutes. Discharge coordination time: Greater than 30 minutes Quality: Safe Use of Opioids Does Pt have an Active Cancer Diagnosis on the Problem List?: No Quality: Stroke Does the patient have a stroke diagnosis?: No Physical Exam Vital Signs: Vital Signs: Last Vital Signs Temp 97.8 F 07/20/22 07:48 Pulse 81 07/20/22 07:48 Resp 17 07/20/22 07:48 BP 106/61 07/20/22 07:48 Pulse Ox 96 07/20/22 07:48 O2 Del Method 07/20/22 07:48 O2 Flow Rate 2 07/16/22 14:27 BMI result Body Mass Index 47.0 Const: General: cooperative, healthy appearing and no acute distress Orientation/consciousness: oriented to person, oriented to place and oriented to time HEENT: Head: Yes normal to inspection Neck: Carotids: no bruits Chest: Chest palpation & inspection: normal inspection of the chest Resp: Effort & Inspection: normal respiratory effort and able to speak in complete sentences Auscultation: clear to auscultation bilaterally Cardio: Rate: regular rate Heart sounds: S1 normal heart sound present and S2 normal heart sound present GI: Inspection: Yes normal to inspection Skin: General skin exam: no rashes or lesions noted Wounds: amputation site (Left great toe amp - dressing clean dry intact) Neuro: General: oriented to person, oriented to place, oriented to time and CN's II-XI intact bilaterally Extrem: General: Yes normal to inspection, Yes full ROM and Yes no clubbing, cyanosis or edema Psych: Appearance: grossly normal and well kempt Speech and movement: Normal speech and movement present Affect: normal affect DS: Data Data Completed and Pending Pending studies at discharge: Pending at discharge 07/16/22 12:54 Surgical [PTH] Routine Labs on day of discharge: Laboratory Results - last 24 hr 07/19/22 07/19/22 07/19/22 11:38 16:14 20:53 WBC RBC Hgb Hct MCV MCH MCHC RDW Plt Count MPV Absolute Nucleated RBC Nucleated RBC % (auto) Sodium Potassium Chloride Carbon Dioxide Anion Gap BUN Creatinine Estim Creat Clear Calc Estimated GFR POC Glucose 208 H 190 H 184 H Fasting Glucose Calcium Vancomycin Trough 07/19/22 07/20/22 07/20/22 21:33 05:34 05:34 WBC 8.3 RBC 4.39 L Hgb 11.9 L Hct 38.2 L MCV 87.0 MCH 27.1 MCHC 31.2 RDW 13.9 Plt Count 246 MPV 11.2 Absolute Nucleated RBC 0.000 Nucleated RBC % (auto) 0.0 Sodium 141 Potassium 4.4 Chloride 108 Carbon Dioxide 25 Anion Gap 12 BUN 15 Creatinine 0.96 Estim Creat Clear Calc 106.1 Estimated GFR > 60 POC Glucose Fasting Glucose 126 H Calcium 8.6 Vancomycin Trough 17.3 07/20/22 07:26 WBC RBC Hgb Hct MCV MCH MCHC RDW Plt Count MPV Absolute Nucleated RBC Nucleated RBC % (auto) Sodium Potassium Chloride Carbon Dioxide Anion Gap BUN Creatinine Estim Creat Clear Calc Estimated GFR POC Glucose 111 Fasting Glucose Calcium Vancomycin Trough Discharge Plan Discharge Anticipated Discharge Date/Time: 07/20/22 10:19 Patient Disposition: Home Health Service Discharge Diagnosis: om Referrals: Loretta Guevara MD [Primary Care Provider] - 1 Week Discharge Medications: Continued fluticasone propionate 50 mcg/actuation spray,suspension 1 spray intranasal BID PRN (Reason: congestion) doxycycline hyclate 100 mg capsule 100 mg PO BID Qty: 14 0RF diltiazem HCl 240 mg capsule,extended release 24hr 240 mg PO DAILY amiodarone 200 mg tablet 200 mg PO DAILY Eliquis 5 mg tablet 5 mg PO BID glipizide 5 mg tablet extended release 24hr 10 mg PO DAILY furosemide 40 mg tablet 40 mg PO DAILY atorvastatin 20 mg tablet 20 mg PO DAILY Januvia 100 mg tablet 100 mg PO DAILY gabapentin 300 mg capsule 300 mg PO BID Discharge Orders: Discharge Order (Routine); Ordered 07/20/22 Ordered By: Silviano Arevalo Diet: Diabetic diet Activity on Discharge: heel touch Stand Alone Forms: Patient Portal Discharge page, Work/School Release Activity Restrictions/Additional Instructions: Wound care upon discharge: xeroform, 4x4 and Kerlix wrap to be changed every other day. Please call Dr. Duarte at [phone] for 2 week follow up for suture and staple removal Care Plan Goals: see above Health Concerns: see above Plan of Treatment: see above Assessment: see above
--- NOTE | 2022-07-20 10:27 | W.MHC.F2F ---
Service Date Service Date: 07/20/22 Encounter Date of encounter: 07/20/22 Reasons for Services Signs and symptoms assessed: difficulty ambulating Reason for half-way: wound care (Wound care upon discharge: xeroform, 4x4 and Kerlix wrap to be changed every other day. Please call Dr. Duarte at [phone] for 2 week follow up for suture and staple removal) Homebound: Leaving the home is medically contraindicated at this time without the asist of a device and/or another person due th the listed conditions above and below. Reason homebound: unsteady gait / fall risk Certification: Based on the above findings, I certify that this patient is confined to the home and needs intermittent half-way care, physical therapy and/or speech therapy, or continues to need occupational therapy. The patient is under my care, and I have initiated the establishment of the plan of care. The patient will be followed by a physician who will periodically review the plan of care. Time Spent With Patient Time: Total time managing care of this patient today ____ minutes.
[2022-07-20 11:18] LABS: Vancomycin Random 18.3 mcg/mL (15-20)
--- NOTE | 2022-07-20 11:26 | HE.PHANOTE ---
Vancomycin Dosing Addendum Patients level came back this morning 18.3 mg/L. Rx insight predicts that at the current dose the level will soon become supra therapeutic. Will decrease dose to 1250 mg Q12H. Patients Scr has also increased. Getting a level for tomorrow 07/21 @1000. Predicted AUC 473 mg/L/hr. Predicted trough 18.9 mg/L
[2022-07-20 11:28] LABS: Creatinine Clr Calc Pharmacy 98.9; Estimated Glomerular Filt Rate > 60
[2022-07-20 11:29] LABS: Glucose, Whole Blood 162 mg/dL (60-115)
[2022-07-20] MEDS: Insulin Lispro 100 UNIT/ML 3 ML VIAL SUBCUT (12:12)
[2022-07-20] MEDS: vancomycin HCL 1,250 MG in 0.9 % Sodium Chloride 250 ML 166.67 MG IV (12:12)
[2022-07-20 15:22] VITALS: BP 118/65; PULSE 81; RESP 20; TEMP 36.6; O2SAT 98
--- NOTE | 2022-07-20 15:45 | MHC.CM.PN ---
MATTEO MOSS VERIFIED THAT PATIENT DOES HAVE A [facility]NA BENEFIT; HOWEVER, NO VNA OFFERS. THIS TRAFFIC DIVISION COMMANDING OFFICER TO STILL ATTEMPT. PATIENT WILL SEE A PROVIDER OUTPATIENT (ACCORDING TO PATIENT) IF VNA ACCEPTANCE OCCURS, CM TO NOTIFY PATIENT BY PHONE. AWARE OF PLAN. MAIKEL IN ROOM TO TRANSPORT
--- NOTE | 2022-07-20 16:05 | MHC.CM.PN ---
[facility] GAGE IS CURRENTLY REVIEWING. PATIENT IS IN HIS WHEELCHAIR TO LEAVE. HE IS NOW AWARE THAT [facility] MAY OFFER SERVICES. CM TO CONFIRM ONCE OFFER IS MADE
== END 2022-07-20 16:16 | disposition home health service (06) | DRG 314 ==
LOC: HO.ED 16:27 → HO.EDOVER 17:02 → HO.S3 17:06
PROVIDERS: Physician Assistant; Student in an Organized Health Care Education/Training Program; Surgery Vascular Surgery; Admitting Provider Registered Nurse; Emergency Provider Student in an Organized Health Care Education/Training Program; PCP Family Medicine; Visit Provider Internal Medicine
PROC: B41DZZZ Fluoroscopy of Aorta and Bilateral Lower Extremity Arteries (ICD-10-PCS; principal; 2022-07-14 09:00)
PROC: 0Y6Q0Z0 Detachment at Left 1st Toe, Complete, Open Approach (ICD-10-PCS; principal; 2022-07-16 11:30)
DX: E11.52 Type 2 diabetes mellitus with diabetic peripheral angiopathy with gangrene (principal); E11.69 Type 2 diabetes mellitus with other specified complication; I70.262 Atherosclerosis of native arteries of extremities with gangrene, left leg; Z68.42 Body mass index [BMI] 45.0-49.9, adult; M86.9 Osteomyelitis, unspecified; E11.65 Type 2 diabetes mellitus with hyperglycemia; E66.01 Morbid (severe) obesity due to excess calories; I48.0 Paroxysmal atrial fibrillation; L97.529 Non-pressure chronic ulcer of other part of left foot with unspecified severity; E78.5 Hyperlipidemia, unspecified; Z20.822 Contact with and (suspected) exposure to COVID-19; Z79.01 Long term (current) use of anticoagulants; Z79.51 Long term (current) use of inhaled steroids; Z79.84 Long term (current) use of oral hypoglycemic drugs; Z79.899 Other long term (current) drug therapy
CPT/HCPCS: 36247; 36415; 73660; 75630; 76937; 80048; 80076; 80202; 81003; 82565; 82947; 83605; 83735; 85025; 85027; 85610; 85652; 85730; 86140; 87040; 87635; 88305; 88311; 99152; 99153; 99285; C1769; C1887; J1650; J2250; J2405; J2543; J2795; J3010; J3370; J3371

== ENCOUNTER → 2022-07-27 10:31 | Outpatient (BNVA) | payer BC, SELFPAY | PROVIDERS: PCP Family Medicine; Visit Provider Surgery Vascular Surgery | DX: Z13.89 Encounter for screening for other disorder (principal) ==

== ENCOUNTER → 2022-08-12 14:17 | Outpatient (BNVA) | payer BC, SELFPAY | PROVIDERS: PCP Family Medicine; Visit Provider Surgery Vascular Surgery | DX: Z13.89 Encounter for screening for other disorder (principal) ==

== ENCOUNTER 2022-08-20 13:53 | Outpatient (RCR) | payer BC, SELFPAY ==
--- NOTE | ~2022-08-20 | XR_ITS ---
EXAMINATION: XR FOOT, LEFT CLINICAL INFORMATION: Nonhealing wound. Attention to fifth metatarsal. COMPARISON: 07/07/2022 TECHNIQUE: 3 views of the left foot. FINDINGS: Compared to 07/07/2022, interval amputation of the great toe through the region of the metatarsal neck. The residual metatarsals intact. No erosions or periostitis. The fifth metatarsal is unremarkable. Small osteophytes are noted at dorsal aspects of several joints of the midfoot. There are prominent enthesophytes of the calcaneus. Peripheral vessels are calcified. XR/XR foot LT min 3V IMPRESSION: Interval surgery of the left great toe. No evidence of osteomyelitis in the left foot.
--- NOTE | ~2022-08-20 | XR_ITS ---
EXAMINATION: XR CHEST CLINICAL INFORMATION: Healing ulcer left foot. Pretreatment evaluation. COMPARISON: None available. TECHNIQUE: 2 views of the chest were obtained. FINDINGS: Low lung volumes. No focal consolidation. No pleural effusion. Cardiac silhouette is likely accentuated by poor inspiratory effort. Right-sided PICC line catheter with tip projecting over the cavoatrial junction. XR/XR chest 2V IMPRESSION: No acute abnormality.
[2023-03-01 08:20] LABS: MANUAL DIFF FLAG NO
[2023-03-01 08:42] LABS: Basophils Percent Auto 0.4 % (0-2); Eosinophils Absolute Auto 0.1 X10*3/uL (0.0-0.4); Eosinophils Percent Auto 1.1 % (0-4); Hematocrit 46.2 % (42.0-52.0); Hemoglobin 14.8 g/dl (14.0-18.0); Imm Gran Abs Auto 0.03 X10*3/uL (0.00-0.03); Imm Gran Pct Auto 0.4 % (0.0-0.4); Lymphocytes Absolute Auto 1.4 X10*3/uL (1.2-4.9); Mean Corpuscular Hemoglobin 28.1 pg (27.0-33.0); Mean Corpuscular Volume 87.7 fL (80.0-98.0); Mean Platelet Volume 11.9 fL (9.4-12.4); Monocytes Absolute Auto 0.6 X10*3/uL (0.1-1.2); Neutrophils Absolute Auto 5.8 x10*3/uL (2.0-8.3); Neutrophils Percent Auto 73.1 % (45-73); Platelet Count 220 X10*3/uL (160-400); Red Blood Count 5.27 X10*6/uL (4.60-5.80); Red Cell Distribution Width 14.9 % (11.0-16.0)
[2023-03-01 08:51] LABS: Estimated Average Glucose 108 mg/dL; Hemoglobin A1c % 5.4 % (<6.0)
[2023-03-01 09:20] LABS: Erythrocyte Sedimentation Rate 28 MM/HR (0-15)
[2023-03-01 09:39] LABS: Anion Gap 13 (12-20); Blood Urea Nitrogen 25 mg/dL (9-16); C Reactive Protein 0.91 mg/dL (< or = 0.50); Carbon Dioxide 29 mmol/L (22-29); Chloride 104 mmol/L (96-108); Estimated Glomerular Filt Rate 60; Glucose Random 103 mg/dL (60-115); Potassium 4.4 mmol/L (3.3-5.1); Sodium 142 mmol/L (135-145)
--- NOTE | 2023-03-22 10:28 | ECG_ITS ---
Test Reason : pre-procedure Blood Pressure : / mmHG Vent. Rate : 079 BPM Atrial Rate : 079 BPM P-R Int : 206 ms QRS Dur : 096 ms QT Int : 392 ms P-R-T Axes : 037 108 056 degrees QTc Int : 449 ms Normal sinus rhythm Rightward axis Low voltage QRS Borderline ECG No previous ECGs available Referred By: Corinne Quiñones Electronically Signed By:CHARMAINE BHATTI
== END 2023-05-09 15:00 | disposition home or self-care (01) ==
LOC: HO.WCC 13:53
PROVIDERS: PCP Family Medicine; Visit Provider Physician Assistant
DX: E11.621 Type 2 diabetes mellitus with foot ulcer (principal); L97.526 Non-pressure chronic ulcer of other part of left foot with bone involvement without evidence of necrosis; E11.51 Type 2 diabetes mellitus with diabetic peripheral angiopathy without gangrene; E11.69 Type 2 diabetes mellitus with other specified complication; M86.472 Chronic osteomyelitis with draining sinus, left ankle and foot; R60.0 Localized edema; I10 Essential (primary) hypertension; Z89.412 Acquired absence of left great toe
CPT/HCPCS: 11042; 11044; 36415; 71046; 73630; 80048; 83036; 84134; 85025; 85652; 86140; 87070; 87205; 93005; 99212; 99213

== ENCOUNTER → 2022-08-31 09:46 | Outpatient (BNVA) | payer BC, SELFPAY | PROVIDERS: PCP Family Medicine; Visit Provider Surgery Vascular Surgery | DX: Z13.89 Encounter for screening for other disorder (principal) ==

== ENCOUNTER → 2022-10-14 10:23 | Outpatient (BNVA) | payer BC, SELFPAY | PROVIDERS: PCP Family Medicine; Visit Provider Surgery Vascular Surgery | DX: Z13.89 Encounter for screening for other disorder (principal) ==

== ENCOUNTER 2022-11-05 13:43 | Outpatient (REF) | payer BC, SELFPAY ==
--- NOTE | ~2022-11-05 | MR_ITS ---
EXAMINATION: MR FOOT WITHOUT CONTRAST, LEFT CLINICAL INFORMATION: Left foot pain. Plantar blister. First toe amputation in June 2022. Recurrent, nonhealing wound. Evaluate for osteomyelitis. COMPARISON: Most recent left foot radiographs dated 09/14/2022. TECHNIQUE: Multisequence MR imaging of the left foot was obtained without contrast on a high-field strength scanner. Patient declined contrast administration. FINDINGS: Redemonstration of 1st metatarsal head and 1st proximal phalangeal resection. There is metallic artifact along the plantar aspect of the 1st metatarsal head. Dorsally there is subcutaneous edema with distal skin thickening, which could represent the postsurgical result versus cellulitis. No organized fluid collection or abscess formation. Minimal marrow edema along the distal/plantar aspect of the persistent 1st metatarsal which could represent the postsurgical result versus very early osteomyelitis. Subcutaneous edema with a possible soft tissue defect lateral to the 5th metatarsal head. There is increased T2 and decreased T1 marrow signal within the adjacent 5th metatarsal head which could represent focal osteomyelitis in the appropriate clinical setting. No metatarsal stress fracture or reaction. No concerning lytic or blastic osseous lesion. Mild degenerative arthritis at the 2nd through 5th tarsometatarsal joints. Edema and atrophy throughout the intrinsic with suture the foot. No measurable tendon tear. Intact Lisfranc ligament. Prominent dorsal subcutaneous edema. MR/MR foot LT wo con IMPRESSION: 1. Postsurgical change consistent with 1st metatarsal head and 1st proximal phalangeal resection. Metallic artifact along the plantar aspect of the 1st metatarsal head. Dorsal subcutaneous edema with distal skin thickening, which could represent the post result versus cellulitis. No organized fluid collection or abscess formation. 2. Minimal marrow edema along the distal/plantar aspect of the persistent 1st metatarsal which could represent the postsurgical result versus very early osteomyelitis. 3. Subcutaneous edema with a possible soft tissue defect lateral to the 5th metatarsal head. Findings could represent cellulitis in the appropriate clinical setting. There is increased T2 and decreased T1 marrow signal within the adjacent 5th metatarsal head which could represent focal osteomyelitis in the appropriate clinical setting. 4. Mild degenerative arthritis at the 2nd through 5th tarsometatarsal joints.
== END 2022-11-05 13:44 | disposition home or self-care (01) ==
LOC: HO.MRI 13:43
PROVIDERS: PCP Family Medicine; Visit Provider Physician Assistant
DX: E11.621 Type 2 diabetes mellitus with foot ulcer (principal); L97.522 Non-pressure chronic ulcer of other part of left foot with fat layer exposed
CPT/HCPCS: 73718

== ENCOUNTER → 2022-11-18 09:07 | Outpatient (BNVA) | payer BC, SELFPAY | PROVIDERS: PCP Family Medicine; Visit Provider Surgery Vascular Surgery ==

== ENCOUNTER 2022-12-08 09:25 | Outpatient (REF) | payer BC, SELFPAY ==
--- NOTE | ~2022-12-08 | US_ITS ---
EXAMINATION: NONINVASIVE ASSESSMENT OF THE ARTERIES OF BOTH LOWER EXTREMITIES INCLUDING PVR EXAM AND BILATERAL LOWER EXTREMITY DUPLEX CLINICAL INFORMATION: Peripheral vascular disease COMPARISON: Real duplex 06/24/2022 TECHNIQUE: Ankle pulse volume recordings, ankle pressure measurements and ankle brachial indices were obtained of the lower extremity arterial system bilaterally in addition to duplex Doppler techniques with wave form analysis and measurement of velocities in the common femoral, profunda femoral, superficial femoral, popliteal, tibial and peroneal arteries. The study was performed only at rest. FINDINGS: RIGHT LEG 1. Right Ankle-Brachial Index: 1.1 (higher of the DP/PT) >0.97-1.25 = normal - no significant arterial disease 0.75-0.96 = mild peripheral arterial disease 0.5-0.74 = moderate peripheral arterial disease <0.50 = severe peripheral arterial disease <0.30 = critical arterial disease 2. Segmental Pressures (mmHg): Brachial: 134 Ankle: PT 142, DP 161 3. PVR Waveforms: Ankle: Normal 4. Direct Duplex: Common femoral artery: 170 cm/s, Multiphasic Profunda femoris artery: 93.8 cm/s, Multiphasic Superficial femoral artery (proximal): 112 cm/s, Multiphasic Superficial femoral artery (mid): 105 cm/s, Multiphasic Superficial femoral artery (distal): 103 cm/s, Multiphasic Proximal Popliteal artery: 85.6 cm/s, Multiphasic Posterior tibial and peroneal arteries cannot be visualized likely secondary to the degree of edema within the lower extremity. LEFT LE. Left Ankle-Brachial Index: 1.43 (higher of the DP/PT) >0.97-1.25 = normal - no significant arterial disease 0.75-0.96 = mild peripheral arterial disease 0.5-0.74 = moderate peripheral arterial disease <0.50 = severe peripheral arterial disease <0.30 = critical arterial disease 2. Segmental Pressures: Brachial: 147 Ankle: PT 210, DP 207 3. PVR Waveforms: Ankle: Normal 4. Direct Duplex: Common femoral artery: 161 cm/s, Multiphasic Profunda femoris artery: 137 cm/s, Multiphasic Superficial femoral artery (proximal): 130 cm/s, Multiphasic Superficial femoral artery (mid): 96.6 cm/s, Multiphasic Superficial femoral artery (distal): 109 cm/s, Multiphasic. The vessels peripherally calcified. Proximal Popliteal artery: 85.6 cm/s, Multiphasic Distal posterior tibial artery: 39.7 cm/s, monophasic US/US MIGUEL ANGEL complete IMPRESSION: Right ankle-brachial index is 1.1. PVR is normal. There is multiphasic flow throughout the lower extremity, the posterior tibial and peroneal arteries are not visualized secondary to the degree of edema. On the left ankle brachial index is 1.43, possibly elevated secondary to vessel calcification. There is a normal PVR there is peripheral calcification of the mid superficial femoral artery and there is a monophasic waveform within the distal posterior tibial artery which could suggest distal arterial disease.
== END 2022-12-08 09:26 | disposition home or self-care (01) ==
LOC: HO.US 09:25
PROVIDERS: PCP Family Medicine; Visit Provider Surgery Vascular Surgery
DX: I73.9 Peripheral vascular disease, unspecified (principal)
CPT/HCPCS: 93923; 93925

== ENCOUNTER 2023-01-06 09:22 | Outpatient (AMB) | payer BC, SELFPAY ==
[2023-01-06 09:27] VITALS: BMI 46.7
--- NOTE | 2023-01-06 09:27 | MHC.OFFVIS ---
Intake Vital Signs 01/06/23 09:27 Height 5 ft 7 in Weight 298 lb BMI 46.7 Intake Visit Reasons: follow up arterial US 12/08/2022 Intake Note: follow up Left great toe amp 07/19/22 s/p Art US 12/08/22. Pt still goes to wound care 1 x per week and [facility] 1 x per week for Left foot non-healing ulcer. Great toe amp has gone on to heal. Right foot is fine, no wounds. Pt states over the last week left leg has been very swollen. Allergies No Known Allergies Allergy (Verified 01/06/23 09:45) HPI follow up arterial US 12/08/2022 HPI Details Very pleasant morbidly obese 62-year-old gentleman presents for follow-up regarding peripheral vascular disease and nonhealing ulcers. He had a toe amputation which has gone on to heal. He continues to have this lateral foot ulcer on the left side. It has been [facility]. It remains nonhealing. He now presents for follow-up with noninvasive arterial testing [facility] Medical History Atrial fibrillation Diabetes Diabetes mellitus type II, non insulin dependent Diabetic foot ulcer associated with type 2 diabetes mellitus HLD (hyperlipidemia) HTN (hypertension) PAD (peripheral artery disease) Family History Other HTN (hypertension) Social History Household Members: None Housing: Condominium Do you presently have visiting nurse or other home services: No Patient Tobacco Use Status: Never used Tobacco service: No Current occupational status: employed Review of Systems Const All systems reviewed & are unremarkable except as noted in HPI and below Reports no additional complaints ENT Reports Normal hearing present Card Denies chest pain, Denies chest pain at rest, Denies chest pain with activity and Denies pedal edema Resp Denies cough GI Denies abdominal pain Musc Denies abnormal gait, Denies muscle cramps and Denies radiating pain into limb Skin/Breast Denies skin ulcer and Denies wounds Neuro Reports Normal hearing present and Denies abnormal gait Psych Reports no additional complaints Physical Exam Vital Signs: BMI result Body Mass Index 46.7 Const General: cooperative, healthy appearing and comfortable Orientation/consciousness: oriented to person, oriented to place and oriented to time HEENT Head: Yes normal to inspection Neck Neck: Yes normal visual inspection Carotids: no bruits Chest Chest palpation & inspection: normal inspection of the chest Resp Effort & Inspection: normal respiratory effort and able to speak in complete sentences Auscultation: clear to auscultation bilaterally, no crackles, no rales, no rhonchi and no wheezes Cardio Rate: regular rate Rhythm: regular rhythm Heart sounds: S1 normal heart sound present and S2 normal heart sound present Bruits: no carotid bruits Peripheral pulses: Peripheral pulses 2+ throughout GI Inspection: Yes normal to inspection Skin Other: Left lateral foot ulcer Wounds: no wounds Hair: normal Neuro General: oriented to person, oriented to place and oriented to time Cranial nerves: Yes CN's II-XII intact bilaterally and Yes Normal hearing present Cognition (Neuro): normal cognition Motor exam (neuro): 5/5 motor strength present throughout Extrem Other: venous exam: No significant superficial varicosities or spider telangiectasias, minimal edema General: No clubbing, No cyanosis and No edema Psych Appearance: grossly normal Mental Status: mental status grossly normal Speech and movement: Normal speech and movement present Results Reviewed Results Reviewed: MRI dated 11/05/2022 is concerning for lateral left foot osteomyelitis Noninvasive arterial testing dated 12/08/2022 demonstrates MIGUEL ANGEL on the right of 1.1 and on the left of 1.43 which is artifactually elevated. I do think he has multi phasic flow all the way down. Written report and images were reviewed. Assessment & Plan Assessment & Plan (1) PAD (peripheral artery disease): Comment: 07/14/2022- diagnostic angiogram 07/19/2022 - left great toe amp Code(s): I73.9 - Peripheral vascular disease, unspecified Plan: In short, patient has a nonhealing left foot ulcer. The concern is underlying osteomyelitis. From an arterial standpoint I do feel that he has adequate supply. I did review his prior angiogram from June. In addition he has good triphasic signals down that left side. Noninvasive testing demonstrates adequate perfusion. The MRI is concerning for osteomyelitis. I have taken the liberty referring him to Infectious Disease. To ensure this wound progresses in the right direction we will have him follow up with us in approximately 3 weeks time. Should there be any interval issues happy to see him back sooner. Thank you for allowing us to assist in his care Orders: Referrals Infectious Disease Referral M86.9 - Osteomyelitis, unspecified Coding Level of Care Code Est Pt Level 4 (83075) Diagnoses PAD (peripheral artery disease) I73.9
== END 2023-01-06 10:15 | disposition home or self-care (01) ==
LOC: HO.HVS 09:22
PROVIDERS: PCP Family Medicine; Visit Provider Surgery Vascular Surgery
DX: I73.9 Peripheral vascular disease, unspecified (principal)
CPT/HCPCS: 99213

== ENCOUNTER → 2023-01-06 09:22 | Outpatient (BNVA) | payer BC, SELFPAY | PROVIDERS: PCP Family Medicine; Visit Provider Surgery Vascular Surgery ==

== ENCOUNTER 2023-01-26 14:48 | Outpatient (AMB) | payer BC, SELFPAY ==
--- NOTE | 2023-01-26 14:49 | MHC.OFFVIS ---
Intake Vital Signs 01/26/23 15:03 Height 5 ft 7 in Weight 316 lb BMI 49.5 BP 140/80 H Pulse 106 H Pulse Oximetry (%) 98 Intake Visit Reasons: Ref.,Osteomyelitis Allergies No Known Allergies Allergy (Verified 01/06/23 09:45) HPI Ref.,Osteomyelitis HPI Details He is sent for evaluation left foot nonhealing wound . MRI shows persistent first plantar metatarsal wound. He has seen Wound care and [facility] and Vascular. Angiogram unremarkable. [facility] Medical History Atrial fibrillation Diabetes Diabetes mellitus type II, non insulin dependent Diabetic foot ulcer associated with type 2 diabetes mellitus HLD (hyperlipidemia) HTN (hypertension) Osteomyelitis of left foot PAD (peripheral artery disease) Family History Other HTN (hypertension) Social History Household Members: None [facility] Do you presently have visiting nurse or other home services: No Patient Tobacco Use Status: Never used Tobacco service: No Current occupational status: employed Review of Systems Const All systems reviewed & are unremarkable except as noted in HPI and below Physical Exam Vital Signs: Last Vital Signs Pulse 106 H 01/26/23 15:03 BP 140/80 H 01/26/23 15:03 Pulse Ox 98 01/26/23 15:03 BMI result Body Mass Index 49.5 Const Other: General: cooperative Orientation/consciousness: patient oriented x3 HEENT Head: Yes normal to inspection Mouth: Normal oral and palatal mucosa present Eyes General: appearance normal, both eyes and all related structures Pupils: Equal, round and reactive pupils present Resp Effort & Inspection: normal respiratory effort Cardio Rate: regular rate Rhythm: regular rhythm GI Palpation (GI): Soft to palpation and nontender General: Yes no CVA tenderness Back/Spine/Pelvis Back: no CVA tenderness Skin General skin exam: no rashes or lesions noted Neuro General: patient oriented x3 Cranial nerves: Yes CN's II-XII intact bilaterally and Yes Equal, round and reactive pupils present Extrem Other: left foot redness ,wound .5 cm lateral Psych Appearance: grossly normal Assessment & Plan Assessment & Plan (1) Osteomyelitis of left foot: Comment: He has had left great toe amputation 06/2022. He has nonhealing lateral infection Code(s): M86.9 - Osteomyelitis, unspecified Plan: Would start IV Vancomycin PICC line. Vancomycin weekly trough and creatinine. See in two weeks. (2) Amputation of left great toe: Code(s): S98.112A - Complete traumatic amputation of left great toe, initial encounter Orders: Orders Creatinine Today M86.9 - Osteomyelitis, unspecified IR cvc insert peripheral Today M86.9 - Osteomyelitis, unspecified Creatinine 1 Week M86.9 - Osteomyelitis, unspecified Vancomycin Trough 1 Week M86.9 - Osteomyelitis, unspecified Medications: New vancomycin in 0.9 % sodium chl 1 gram/250 mL 1 g (250 mL) IV Q12H 42 days 21,000 mL 0RF vancomycin in 0.9 % sodium chl 1 gram/250 mL 1 g (250 mL) IV Q12H 21,000 mL 0RF 42 days Coding Level of Care Code Est Pt Level 3 (85482) Diagnoses Osteomyelitis of left foot M86.9 Amputation of left great toe S98.112A
[2023-01-26 15:03] VITALS: BP 140/80; PULSE 106; O2SAT 98; BMI 49.5
== END 2023-01-26 15:34 | disposition home or self-care (01) ==
LOC: HO.HID 14:48
PROVIDERS: PCP Family Medicine; Visit Provider Internal Medicine
DX: M86.9 Osteomyelitis, unspecified (principal); S98.112A Complete traumatic amputation of left great toe, initial encounter
CPT/HCPCS: 99213

== ENCOUNTER → 2023-01-26 14:48 | Outpatient (BNVA) | payer BC, SELFPAY | PROVIDERS: PCP Family Medicine; Visit Provider Internal Medicine ==

== ENCOUNTER 2023-01-27 09:52 | Outpatient (AMB) | payer BC, SELFPAY ==
[2023-01-27 09:53] VITALS: BMI 49.5
--- NOTE | 2023-01-27 09:53 | A.OFFVIS_ITS ---
Intake Vital Signs 01/27/23 09:53 Height 5 ft 7 in Weight 316 lb BMI 49.5 Intake Visit Reasons: 3 week follow up wound check Intake Note: 3 week follow up Left Great Toe Amp 07/19/22. Pt states that he goes to woundcare every week or every other week. Pt had appt w/ ID yesterday. Has [facility] nurse once a week. Sister helps with dressing tuesday, tuesday and tuesday. Pt states Left LE is swollen, has more drainage than usual. Right LE is fine Allergies No Known Allergies Allergy (Verified 01/27/23 09:57) HPI 3 week follow up wound check HPI Details Very pleasant 62-year-old gentleman presents for follow-up regarding nonhealing left lateral foot ulcer. He has been seen by a wound care and pain management. Continues to be a source of pain and discomfort for him. He now presents to us for follow-up. [facility] Medical History Atrial fibrillation Diabetes Diabetes mellitus type II, non insulin dependent Diabetic foot ulcer associated with type 2 diabetes mellitus HLD (hyperlipidemia) HTN (hypertension) Osteomyelitis of left foot PAD (peripheral artery disease) Family History Other HTN (hypertension) Social History Household Members: None Housing: Condominium Do you presently have visiting nurse or other home services: No Patient Tobacco Use Status: Never used Tobacco service: No Current occupational status: employed Review of Systems Const All systems reviewed & are unremarkable except as noted in HPI and below Reports no additional complaints ENT Reports Normal hearing present Card Denies chest pain, Denies chest pain at rest, Denies chest pain with activity and Denies pedal edema Resp Denies cough GI Denies abdominal pain Musc Denies abnormal gait, Denies muscle cramps and Denies radiating pain into limb Skin/Breast Denies skin ulcer and Denies wounds Neuro Reports Normal hearing present and Denies abnormal gait Psych Reports no additional complaints Physical Exam Vital Signs: BMI result Body Mass Index 49.5 Const General: cooperative, healthy appearing and comfortable Orientation/consciousness: oriented to person, oriented to place and oriented to time HEENT Head: Yes normal to inspection Neck Neck: Yes normal visual inspection Carotids: no bruits Chest Chest palpation & inspection: normal inspection of the chest Resp Effort & Inspection: normal respiratory effort and able to speak in complete sentences Auscultation: clear to auscultation bilaterally, no crackles, no rales, no rhonchi and no wheezes Cardio Rate: regular rate Rhythm: regular rhythm Heart sounds: S1 normal heart sound present and S2 normal heart sound present Bruits: no carotid bruits Peripheral pulses: Peripheral pulses 2+ throughout GI Inspection: Yes normal to inspection Skin Other: Left lateral foot wound measures 1 x 1 x 0.6 cm. It does penetrate down to bone. Good bleeding and good granulation base. Wounds: no wounds Hair: normal Neuro General: oriented to person, oriented to place and oriented to time Cranial nerves: Yes CN's II-XII intact bilaterally and Yes Normal hearing present Cognition (Neuro): normal cognition Motor exam (neuro): 5/5 motor strength present throughout Extrem Other: venous exam: No significant superficial varicosities or spider telangiectasias, minimal edema General: No clubbing, No cyanosis and No edema Psych Appearance: grossly normal Mental Status: mental status grossly normal Speech and movement: Normal speech and movement present Assessment & Plan Assessment & Plan (1) Osteomyelitis of left foot: Comment: He has had left great toe amputation 06/2022. He has nonhealing lateral infection Code(s): M86.9 - Osteomyelitis, unspecified Plan: In short patient has nonhealing left lateral foot wound. Would continue with local wound care. In addition he has seen Infectious Disease which has recommended a IV vancomycin. He will continue see wound care. He may benefit even from hyperbaric oxygen therapy. We did discuss local wound care and offloading. The patient will follow up with us in approximately 1 months time. Coding Level of Care Code Est Pt Level 3 (30959) Diagnoses Osteomyelitis of left foot M86.9
== END 2023-01-27 10:32 | disposition home or self-care (01) ==
PROVIDERS: PCP Family Medicine; Visit Provider Surgery Vascular Surgery
DX: M86.9 Osteomyelitis, unspecified (principal)
CPT/HCPCS: 99213

== ENCOUNTER → 2023-01-27 09:52 | Outpatient (BNVA) | payer BC, SELFPAY | PROVIDERS: PCP Family Medicine; Visit Provider Surgery Vascular Surgery ==

== ENCOUNTER → 2023-02-10 08:21 | Day surgery (SDC) | payer BC, SELFPAY ==
--- NOTE | 2023-02-10 11:43 | HO.PICC ---
PICC Line Insertion NPICC Diagnosis: Osteomyelitis Indication: detention antibiotics needed Pertinent Labs: reviewed Technique: Following informed consent including risks, benefits and alternatives and using sterile technique including cap and mask, sterile gown, glove and drape, the right arm was prepped and draped in the usual sterile fashion of full barrier technique with CHG. Following completion of [place] Protocol the skin and soft tissues were anesthetized with 1% Lidocaine plain. Using ultrasound guidance, right basilic vein access was obtained twice by Marcy Joiner RN and twice by Krish Storm RN, but unable to pass guidewire. Right basilic vein access was obtained by Dr Espino on second attempt. Over an 0.018 wire through peel-away sheath, a 4FR single lumen PASV PICC line was positioned. Catheter length is 49 CM internal length, at the 0 CM external coty, for a total trimmed length of 49 CM. The procedure was performed in S272. Tip verification was performed by Becky Recio with Sherlock 3CG. Tip located in SVC. Ultrasound was used to document vein patency and for needle entry. A formal ultrasound picture and cardiac rhythm strip was recorded. Vascular Principal Clerk Typist has released the line for use and it is currently dressed with a StatLock, Tegaderm, and CHG disc. Verification has been performed for blood return and line patency. Arm Circumference: 32.5 CM Equipment: Daily Pic PowerPICC SOLO Catheter Type: 4FR single lumen PASV PICC Lot #: [id number]
== END ==
PROVIDERS: PCP Family Medicine
DX: M86.9 Osteomyelitis, unspecified (principal)
CPT/HCPCS: 36573; C1751; J1335

== ENCOUNTER 2023-02-10 11:32 | Outpatient (REF) | payer BC, SELFPAY | END 2023-02-10 11:33 | disposition home or self-care (01) | LOC: HO.MDS 11:32 | PROVIDERS: Visit Provider Internal Medicine | DX: M86.172 Other acute osteomyelitis, left ankle and foot (principal) | CPT/HCPCS: 96365; J1335 ==

== ENCOUNTER 2023-02-11 09:18 | Outpatient (REF) | payer BC, SELFPAY | END 2023-02-11 09:19 | disposition home or self-care (01) | LOC: HO.MDS 09:18 | PROVIDERS: Visit Provider Internal Medicine | DX: M86.9 Osteomyelitis, unspecified (principal) | CPT/HCPCS: 96365; J1335 ==

== ENCOUNTER 2023-02-12 09:51 | Outpatient (REF) | payer BC, SELFPAY | END 2023-02-12 09:52 | disposition home or self-care (01) | LOC: HO.MDS 09:51 | PROVIDERS: PCP Family Medicine; Visit Provider Internal Medicine | DX: M86.9 Osteomyelitis, unspecified (principal) | CPT/HCPCS: 96365; J1335 ==

== ENCOUNTER 2023-02-13 09:48 | Outpatient (REF) | payer BC, SELFPAY | END 2023-02-13 09:49 | disposition home or self-care (01) | LOC: HO.MDS 09:48 | PROVIDERS: PCP Family Medicine; Visit Provider Internal Medicine | DX: M86.9 Osteomyelitis, unspecified (principal) | CPT/HCPCS: 96365; J1335 ==

== ENCOUNTER 2023-02-14 14:03 | Outpatient (REF) | payer BC, SELFPAY | END 2023-02-14 14:04 | disposition home or self-care (01) | LOC: HO.MDS 14:03 | PROVIDERS: Visit Provider Internal Medicine | DX: M86.9 Osteomyelitis, unspecified (principal) | CPT/HCPCS: 96365; J1335 ==

== ENCOUNTER 2023-02-15 11:22 | Outpatient (REF) | payer BC, SELFPAY | END 2023-02-15 11:23 | disposition home or self-care (01) | LOC: HO.MDS 11:22 | PROVIDERS: Visit Provider Internal Medicine | DX: M86.9 Osteomyelitis, unspecified (principal) | CPT/HCPCS: 96365; J1335 ==

== ENCOUNTER 2023-02-16 11:24 | Outpatient (REF) | payer BC, SELFPAY | END 2023-02-16 11:25 | disposition home or self-care (01) | LOC: HO.MDS 11:24 | PROVIDERS: Visit Provider Internal Medicine | DX: M86.172 Other acute osteomyelitis, left ankle and foot (principal) | CPT/HCPCS: 96365; J1335 ==

== ENCOUNTER 2023-02-17 10:52 | Outpatient (REF) | payer BC, SELFPAY | END 2023-02-17 10:53 | disposition home or self-care (01) | LOC: HO.MDS 10:52 | PROVIDERS: Visit Provider Internal Medicine | DX: M86.9 Osteomyelitis, unspecified (principal) | CPT/HCPCS: 96365; J1335 ==

== ENCOUNTER 2023-02-18 11:22 | Outpatient (REF) | payer BC, SELFPAY | END 2023-02-18 11:23 | disposition home or self-care (01) | LOC: HO.MDS 11:22 | PROVIDERS: Visit Provider Internal Medicine | DX: M86.9 Osteomyelitis, unspecified (principal) | CPT/HCPCS: 96365; J1335 ==

== ENCOUNTER 2023-02-18 14:24 | Outpatient (AMB) | payer BC, SELFPAY ==
--- NOTE | 2023-02-18 14:25 | A.OFFVIS_ITS ---
Intake Vital Signs 02/18/23 14:31 Height 5 ft 7 in Weight 318 lb BMI 49.8 BP 150/90 H Blood Pressure Location Lt brachial Position Sitting Pulse 97 Pulse Source Pulse Oximeter Pulse Oximetry (%) 98 Intake Visit Reasons: 2 wks.f/u-osteomyelitis Allergies No Known Allergies Allergy (Verified 02/18/23 14:31) HPI 2 wks.f/u-osteomyelitis HPI Details He has started Ertapenem one week ago. He has no complaints. I didnt see wound today because he just came from Wound Clinic and said no complaints. [facility] Medical History Atrial fibrillation Diabetes Diabetes mellitus type II, non insulin dependent Diabetic foot ulcer associated with type 2 diabetes mellitus HLD (hyperlipidemia) HTN (hypertension) Osteomyelitis of left foot PAD (peripheral artery disease) Family History Other HTN (hypertension) Social History [facility] Members: [facility] Do you presently have visiting nurse or other home services: No Patient Tobacco Use Status: Never used Tobacco service: No Current occupational status: employed Review of Systems Const All systems reviewed & are unremarkable except as noted in HPI and below Physical Exam Vital Signs: Last Vital Signs Pulse 97 02/18/23 14:31 BP 150/90 H 02/18/23 14:31 Pulse Ox 98 02/18/23 14:31 BMI result Body Mass Index 49.8 Const General: cooperative Orientation/consciousness: patient oriented x3 HEENT Head: Yes normal to inspection Mouth: Normal oral and palatal mucosa present Eyes General: appearance normal, both eyes and all related structures Pupils: Equal, round and reactive pupils present Resp Effort & Inspection: normal respiratory effort Cardio Rate: regular rate Rhythm: regular rhythm GI Palpation (GI): Soft to palpation and nontender General: Yes no CVA tenderness Back/Spine/Pelvis Back: no CVA tenderness Skin General skin exam: no rashes or lesions noted Neuro General: patient oriented x3 Cranial nerves: Yes CN's II-XII intact bilaterally and Yes Equal, round and reactive pupils present Extrem General: Yes normal to inspection Psych Appearance: grossly normal Assessment & Plan Assessment & Plan (1) Osteomyelitis of left foot: Comment: He has had left great toe amputation 06/2022. He has nonhealing lateral infection Code(s): M86.9 - Osteomyelitis, unspecified Plan: See in two weeks,end date IV antibiotics is 03/25/2023 and consider oral after,no organism. Check CBC,creatinine weekly. Coding Level of Care Code Est Pt Level 3 (82988) Diagnoses Osteomyelitis of left foot M86.9
[2023-02-18 14:31] VITALS: BP 150/90; PULSE 97; O2SAT 98; BMI 49.8
== END 2023-02-18 15:05 | disposition home or self-care (01) ==
LOC: HO.HID 14:24
PROVIDERS: PCP Family Medicine; Visit Provider Internal Medicine
DX: M86.9 Osteomyelitis, unspecified (principal)
CPT/HCPCS: 99213

== ENCOUNTER 2023-02-18 15:06 | Outpatient (REF) | payer BC, SELFPAY ==
[2023-02-18 15:22] LABS: MANUAL DIFF FLAG NO
[2023-02-18 15:31] LABS: Hematocrit 47.3 % (42.0-52.0); Hemoglobin 15.1 g/dl (14.0-18.0); White Blood Count 10.2 X10*3/uL (4.8-10.8)
[2023-02-18 15:32] LABS: Basophils Percent Auto 0.4 % (0-2); Eosinophils Absolute Auto 0.1 X10*3/uL (0.0-0.4); Eosinophils Percent Auto 1.1 % (0-4); Imm Gran Abs Auto 0.02 X10*3/uL (0.00-0.03); Imm Gran Pct Auto 0.2 % (0.0-0.4); Lymphocytes Absolute Auto 1.7 X10*3/uL (1.2-4.9); Lymphocytes Percent Auto 16.7 % (20-40); Mean Corpuscular HGB Conc 31.9 g/dl (31.0-36.0); Mean Corpuscular Hemoglobin 27.5 pg (27.0-33.0); Mean Platelet Volume 10.7 fL (9.4-12.4); Monocytes Absolute Auto 0.6 X10*3/uL (0.1-1.2); Neutrophils Absolute Auto 7.7 x10*3/uL (2.0-8.3); Neutrophils Percent Auto 75.6 % (45-73); Platelet Count 232 X10*3/uL (160-400); Red Cell Distribution Width 15.1 % (11.0-16.0)
[2023-02-18 16:48] LABS: Estimated Glomerular Filt Rate > 60
== END 2023-02-18 15:07 | disposition home or self-care (01) ==
LOC: HO.LAB 15:06
PROVIDERS: Visit Provider Internal Medicine
DX: M86.9 Osteomyelitis, unspecified (principal)
CPT/HCPCS: 36415; 82565; 85025

== ENCOUNTER 2023-02-19 09:49 | Outpatient (REF) | payer BC, SELFPAY | END 2023-02-19 09:50 | disposition home or self-care (01) | LOC: HO.MDS 09:49 | PROVIDERS: Visit Provider Internal Medicine | DX: M86.9 Osteomyelitis, unspecified (principal) | CPT/HCPCS: 96365; J1335 ==

== ENCOUNTER 2023-02-20 09:52 | Outpatient (REF) | payer BC, SELFPAY | END 2023-02-20 09:53 | disposition home or self-care (01) | LOC: HO.MDS 09:52 | PROVIDERS: Visit Provider Internal Medicine | DX: M86.9 Osteomyelitis, unspecified (principal) | CPT/HCPCS: 96374; J1335 ==

== ENCOUNTER 2023-02-21 09:53 | Outpatient (REF) | payer BC, SELFPAY | END 2023-02-21 09:54 | disposition home or self-care (01) | LOC: HO.MDS 09:53 | PROVIDERS: Visit Provider Internal Medicine | DX: M86.172 Other acute osteomyelitis, left ankle and foot (principal) | CPT/HCPCS: 96365; J1335 ==

== ENCOUNTER 2023-02-22 12:27 | Outpatient (REF) | payer BC, SELFPAY | END 2023-02-22 12:28 | disposition home or self-care (01) | LOC: HO.MDS 12:27 | PROVIDERS: Visit Provider Internal Medicine | DX: M86.9 Osteomyelitis, unspecified (principal) | CPT/HCPCS: 96365; J1335 ==

== ENCOUNTER 2023-02-23 11:25 | Outpatient (REF) | payer BC, SELFPAY | END 2023-02-23 11:26 | disposition home or self-care (01) | LOC: HO.MDS 11:25 | PROVIDERS: Visit Provider Internal Medicine | DX: M86.9 Osteomyelitis, unspecified (principal) | CPT/HCPCS: 96365; J1335 ==

== ENCOUNTER 2023-02-24 09:23 | Outpatient (REF) | payer BC, SELFPAY | END 2023-02-24 09:24 | disposition home or self-care (01) | LOC: HO.MDS 09:23 | PROVIDERS: Visit Provider Internal Medicine | DX: M86.9 Osteomyelitis, unspecified (principal) | CPT/HCPCS: 96365; J1335 ==

== ENCOUNTER 2023-02-24 10:25 | Outpatient (REF) | payer BC, SELFPAY ==
[2023-02-24 10:37] LABS: MANUAL DIFF FLAG NO
[2023-02-24 10:50] LABS: Basophils Percent Auto 0.2 % (0-2); Eosinophils Absolute Auto 0.1 X10*3/uL (0.0-0.4); Eosinophils Percent Auto 0.9 % (0-4); Hematocrit 46.6 % (42.0-52.0); Hemoglobin 14.7 g/dl (14.0-18.0); Imm Gran Abs Auto 0.02 X10*3/uL (0.00-0.03); Imm Gran Pct Auto 0.2 % (0.0-0.4); Lymphocytes Absolute Auto 1.4 X10*3/uL (1.2-4.9); Lymphocytes Percent Auto 16.2 % (20-40); Mean Corpuscular HGB Conc 31.5 g/dl (31.0-36.0); Mean Corpuscular Hemoglobin 27.5 pg (27.0-33.0); Mean Corpuscular Volume 87.1 fL (80.0-98.0); Mean Platelet Volume 11.2 fL (9.4-12.4); Monocytes Absolute Auto 0.6 X10*3/uL (0.1-1.2); Monocytes Percent Auto 6.5 % (2-11); Neutrophils Absolute Auto 6.5 x10*3/uL (2.0-8.3); Platelet Count 236 X10*3/uL (160-400); Red Blood Count 5.35 X10*6/uL (4.60-5.80); Red Cell Distribution Width 14.9 % (11.0-16.0); White Blood Count 8.6 X10*3/uL (4.8-10.8)
[2023-02-24 11:13] LABS: Estimated Glomerular Filt Rate > 60
== END 2023-02-24 10:26 | disposition home or self-care (01) ==
LOC: HO.LAB 10:25
PROVIDERS: PCP Family Medicine; Visit Provider Internal Medicine
DX: M86.9 Osteomyelitis, unspecified (principal)
CPT/HCPCS: 36415; 82565; 85025

== ENCOUNTER 2023-02-25 09:22 | Outpatient (REF) | payer BC, SELFPAY | END 2023-02-25 09:23 | disposition home or self-care (01) | LOC: HO.MDS 09:22 | PROVIDERS: Visit Provider Internal Medicine | DX: M86.9 Osteomyelitis, unspecified (principal) | CPT/HCPCS: 96365; J1335 ==

== ENCOUNTER 2023-02-26 09:52 | Outpatient (REF) | payer BC, SELFPAY | END 2023-02-26 09:53 | disposition home or self-care (01) | LOC: HO.MDS 09:52 | PROVIDERS: PCP Family Medicine; Visit Provider Internal Medicine | DX: M86.9 Osteomyelitis, unspecified (principal) | CPT/HCPCS: 96365; J1335 ==

== ENCOUNTER 2023-02-27 09:51 | Outpatient (REF) | payer BC, SELFPAY | END 2023-02-27 09:52 | disposition home or self-care (01) | LOC: HO.MDS 09:51 | PROVIDERS: PCP Family Medicine; Visit Provider Internal Medicine | DX: M86.9 Osteomyelitis, unspecified (principal) | CPT/HCPCS: 96365; J1335 ==

== ENCOUNTER 2023-02-28 09:52 | Outpatient (REF) | payer BC, SELFPAY | END 2023-02-28 09:53 | disposition home or self-care (01) | LOC: HO.MDS 09:52 | PROVIDERS: PCP Family Medicine; Visit Provider Internal Medicine | DX: M86.9 Osteomyelitis, unspecified (principal) | CPT/HCPCS: 96365; J1335 ==

== ENCOUNTER 2023-03-01 12:23 | Outpatient (REF) | payer BC, SELFPAY | END 2023-03-01 12:24 | disposition home or self-care (01) | LOC: HO.MDS 12:23 | PROVIDERS: Visit Provider Internal Medicine | DX: M86.9 Osteomyelitis, unspecified (principal) | CPT/HCPCS: 96365; J1335 ==

== ENCOUNTER 2023-03-02 09:22 | Outpatient (REF) | payer BC, SELFPAY | END 2023-03-02 09:23 | disposition home or self-care (01) | LOC: HO.MDS 09:22 | PROVIDERS: Visit Provider Internal Medicine | DX: M86.9 Osteomyelitis, unspecified (principal) | CPT/HCPCS: 96365; J1335 ==

== ENCOUNTER 2023-03-03 08:50 | Outpatient (REF) | payer BC, SELFPAY | END 2023-03-03 08:51 | disposition home or self-care (01) | LOC: HO.MDS 08:50 | PROVIDERS: Visit Provider Internal Medicine | DX: M86.9 Osteomyelitis, unspecified (principal) | CPT/HCPCS: 96365; J1335 ==

== ENCOUNTER 2023-03-03 10:16 | Outpatient (REF) | payer BC, SELFPAY ==
[2023-03-03 10:32] LABS: MANUAL DIFF FLAG NO
[2023-03-03 11:05] LABS: Basophils Percent Auto 0.5 % (0-2); Eosinophils Absolute Auto 0.1 X10*3/uL (0.0-0.4); Eosinophils Percent Auto 1.3 % (0-4); Hemoglobin 14.7 g/dl (14.0-18.0); Imm Gran Abs Auto 0.03 X10*3/uL (0.00-0.03); Imm Gran Pct Auto 0.4 % (0.0-0.4); Lymphocytes Absolute Auto 1.6 X10*3/uL (1.2-4.9); Lymphocytes Percent Auto 20.3 % (20-40); Mean Corpuscular Hemoglobin 27.8 pg (27.0-33.0); Mean Corpuscular Volume 87.1 fL (80.0-98.0); Mean Platelet Volume 11.5 fL (9.4-12.4); Monocytes Absolute Auto 0.6 X10*3/uL (0.1-1.2); Monocytes Percent Auto 7.3 % (2-11); Neutrophils Absolute Auto 5.4 x10*3/uL (2.0-8.3); Neutrophils Percent Auto 70.2 % (45-73); Platelet Count 225 X10*3/uL (160-400); Red Blood Count 5.28 X10*6/uL (4.60-5.80); Red Cell Distribution Width 14.9 % (11.0-16.0); White Blood Count 7.7 X10*3/uL (4.8-10.8)
[2023-03-03 12:07] LABS: Estimated Glomerular Filt Rate > 60
== END 2023-03-03 10:17 | disposition home or self-care (01) ==
LOC: HO.LAB 10:16
PROVIDERS: PCP Family Medicine; Visit Provider Internal Medicine
DX: M86.9 Osteomyelitis, unspecified (principal)
CPT/HCPCS: 36415; 82565; 85025

== ENCOUNTER 2023-03-03 10:57 | Outpatient (AMB) | payer BC, SELFPAY ==
--- NOTE | 2023-03-03 10:54 | A.OFFVIS_ITS ---
Intake Vital Signs 03/03/23 11:01 Height 5 ft 7 in Weight 318 lb BMI 49.8 BP 120/84 Blood Pressure Location Lt brachial Position Sitting Pulse 76 Pulse Source Pulse Oximeter Pulse Oximetry (%) 95 Oxygen Delivery Method Room Air Intake Visit Reasons: 1 month wound check Intake Note: Pt presents to the office today for a 1 month wound check. Pt states he goes to wound care about every week and has a visiting nurse come once a week.Pt states he changes the dressing every tuesday, tuesday, and tuesday. Pt states the visiting nurse and wound care clinic said the wound is looking good. Pt denies any numbness or tingling. Pt states the leg and ankle swelling has improved in the last few weeks. Allergies No Known Allergies Allergy (Verified 03/03/23 10:54) HPI 1 month wound check HPI Details Very pleasant 62-year-old gentleman presents for follow-up regarding nonhealing left lower extremity foot ulcer. His great toe has gone on to heal. On the lateral aspect he has a nonhealing ulcer. He continues to be followed by the Wound Care team. He now presents to us for routine follow-up. [facility] Medical History Osteomyelitis of left foot Diabetic foot ulcer associated with type 2 diabetes mellitus Atrial fibrillation Diabetes mellitus type II, non insulin dependent HLD (hyperlipidemia) HTN (hypertension) Diabetes PAD (peripheral artery disease) Family History Other HTN (hypertension) Social History [facility]hold Members: [facility] Do you presently have visiting nurse or other home services: No Patient Tobacco Use Status: Never used Tobacco service: No Current occupational status: employed Review of Systems Const All systems reviewed & are unremarkable except as noted in HPI and below Reports no additional complaints ENT Reports Normal hearing present Card Denies chest pain, Denies chest pain at rest, Denies chest pain with activity and Denies pedal edema Resp Denies cough GI Denies abdominal pain Musc Denies abnormal gait, Denies muscle cramps and Denies radiating pain into limb Skin/Breast Denies skin ulcer and Denies wounds Neuro Reports Normal hearing present and Denies abnormal gait Psych Reports no additional complaints Physical Exam Vital Signs: Last Vital Signs Pulse 76 03/03/23 11:01 BP 120/84 03/03/23 11:01 Pulse Ox 95 03/03/23 11:01 Oxygen Delivery Method Room Air 03/03/23 11:01 BMI result Body Mass Index 49.8 Const General: cooperative, healthy appearing and comfortable Orientation/consciousness: oriented to person, oriented to place and oriented to time HEENT Head: Yes normal to inspection Neck Neck: Yes normal visual inspection Carotids: no bruits Chest Chest palpation & inspection: normal inspection of the chest Resp Effort & Inspection: normal respiratory effort and able to speak in complete sentences Auscultation: clear to auscultation bilaterally, no crackles, no rales, no rhonchi and no wheezes Cardio Rate: regular rate Rhythm: regular rhythm Heart sounds: S1 normal heart sound present and S2 normal heart sound present Bruits: no carotid bruits Peripheral pulses: Peripheral pulses 2+ throughout GI Inspection: Yes normal to inspection Skin Other: Left foot lateral aspect 0.3 cm in diameter ulcer but it does have depth of 1 cm Left great toe has gone on to heal Wounds: no wounds Hair: normal Neuro General: oriented to person, oriented to place and oriented to time Cranial nerves: Yes CN's II-XII intact bilaterally and Yes Normal hearing present Cognition (Neuro): normal cognition Motor exam (neuro): 5/5 motor strength present throughout Extrem Other: venous exam: No significant superficial varicosities or spider telangiectasias, minimal edema General: No clubbing, No cyanosis and No edema Psych Appearance: grossly normal Mental Status: mental status grossly normal Speech and movement: Normal speech and movement present Assessment & Plan Assessment & Plan (1) PAD (peripheral artery disease): Comment: 07/14/2022- diagnostic angiogram 07/19/2022 - left great toe amp Code(s): I73.9 - Peripheral vascular disease, unspecified Plan: In short patient has a nonhealing left lateral foot ulcer. The concern is that penetration and depth of this. He is actually id currently undergoing evaluation by a the W[facility] Care Center for possible hyperbaric oxygen therapy which I do think will be beneficial for him. In addition he is completing his course of IV antibiotics. I do want to follow-up with him in approximately 1 months time to ensure that the wound continues to progress in the right direction. Thank you for allowing us to assist in his care. If there are any questions or concerns please do not hesitate to contact us. Coding Level of Care Code Est Pt Level 4 (39896) Diagnoses PAD (peripheral artery disease) I73.9
[2023-03-03 11:01] VITALS: BP 120/84; PULSE 76; O2SAT 95; BMI 49.8
== END 2023-03-03 11:45 | disposition home or self-care (01) ==
PROVIDERS: PCP Family Medicine; Visit Provider Surgery Vascular Surgery
DX: I73.9 Peripheral vascular disease, unspecified (principal)
CPT/HCPCS: 99213

== ENCOUNTER 2023-03-04 08:47 | Outpatient (REF) | payer BC, SELFPAY | END 2023-03-04 08:48 | disposition home or self-care (01) | LOC: HO.MDS 08:47 | PROVIDERS: Visit Provider Internal Medicine | DX: M86.9 Osteomyelitis, unspecified (principal) | CPT/HCPCS: 96365; J1335 ==

== ENCOUNTER 2023-03-04 13:40 | Outpatient (AMB) | payer BC, SELFPAY ==
--- NOTE | 2023-03-04 13:47 | MHC.OFFVIS ---
Intake Vital Signs 03/04/23 14:00 Height 5 ft 7 in Weight 319 lb BMI 50.0 BP 110/70 Pulse 100 Pulse Source Pulse Oximeter Pulse Oximetry (%) 98 Intake Visit Reasons: F/U,2 wks lab Allergies No Known Allergies Allergy (Verified 03/04/23 14:00) HPI HPI Comments History of Present Illness Details He has nonhealing left lateral foot. He is week 3/6 Ertapenem. He has no complaints. He is due to end antibiotics on 03/23. [facility] Medical History Osteomyelitis of left foot Diabetic foot ulcer associated with type 2 diabetes mellitus Atrial fibrillation Diabetes mellitus type II, non insulin dependent HLD (hyperlipidemia) HTN (hypertension) Diabetes PAD (peripheral artery disease) Family History Other HTN (hypertension) Social History Household Members: None [facility] Do you presently have visiting nurse or other home services: No Patient Tobacco Use Status: Never used Tobacco service: No Current occupational status: employed Review of Systems Const All systems reviewed & are unremarkable except as noted in HPI and below Physical Exam Vital Signs: Last Vital Signs Pulse 100 03/04/23 14:00 BP 110/70 03/04/23 14:00 Pulse Ox 98 03/04/23 14:00 BMI result Body Mass Index 50.0 Const General: cooperative Orientation/consciousness: patient oriented x3 HEENT Head: Yes normal to inspection Mouth: Normal oral and palatal mucosa present Eyes General: appearance normal, both eyes and all related structures Pupils: Equal, round and reactive pupils present Resp Effort & Inspection: normal respiratory effort Cardio Rate: regular rate Rhythm: regular rhythm GI Palpation (GI): Soft to palpation and nontender General: Yes no CVA tenderness Back/Spine/Pelvis Back: no CVA tenderness Skin General skin exam: no rashes or lesions noted Neuro General: patient oriented x3 Cranial nerves: Yes CN's II-XII intact bilaterally and Yes Equal, round and reactive pupils present Extrem Other: wound left foot Psych Appearance: grossly normal Assessment & Plan Assessment & Plan (1) Osteomyelitis of left foot: Comment: He has had left great toe amputation 06/2022. He has nonhealing lateral infection He is feeling well and feels healing. Code(s): M86.9 - Osteomyelitis, unspecified Plan: Would stop IV antibiotics and pull PICC line on 03/23. Po Doxycycline 100 bid one month. See in one month. Orders: Orders IR cvc remove any age 0903/04/23 M86.9 - Osteomyelitis, unspecified Medications: New doxycycline hyclate 100 mg PO BID 60 caps 0RF 30 days Coding Level of Care Code Est Pt Level 3 (74194) Diagnoses Osteomyelitis of left foot M86.9
[2023-03-04 14:00] VITALS: BP 110/70; PULSE 100; O2SAT 98; BMI 50.0
== END 2023-03-04 15:23 ==
LOC: HO.HID 13:40
PROVIDERS: PCP Family Medicine; Visit Provider Internal Medicine
DX: M86.9 Osteomyelitis, unspecified (principal)
CPT/HCPCS: 99213

== ENCOUNTER 2023-03-05 09:48 | Outpatient (REF) | payer BC, SELFPAY | END 2023-03-05 09:49 | disposition home or self-care (01) | LOC: HO.MDS 09:48 | PROVIDERS: PCP Family Medicine; Visit Provider Internal Medicine | DX: M86.9 Osteomyelitis, unspecified (principal) | CPT/HCPCS: 96374; J1335 ==

== ENCOUNTER 2023-03-06 09:41 | Outpatient (REF) | payer BC, SELFPAY | END 2023-03-06 09:42 | disposition home or self-care (01) | LOC: HO.MDS 09:41 | PROVIDERS: Visit Provider Internal Medicine | DX: M86.9 Osteomyelitis, unspecified (principal) | CPT/HCPCS: 96365; J1335 ==

== ENCOUNTER 2023-03-07 11:22 | Outpatient (REF) | payer BC, SELFPAY | END 2023-03-07 11:23 | disposition home or self-care (01) | LOC: HO.MDS 11:22 | PROVIDERS: Visit Provider Internal Medicine | DX: M86.9 Osteomyelitis, unspecified (principal) | CPT/HCPCS: 96365; J1335 ==

== ENCOUNTER 2023-03-08 09:19 | Outpatient (REF) | payer BC, SELFPAY | END 2023-03-08 09:20 | disposition home or self-care (01) | LOC: HO.MDS 09:19 | PROVIDERS: Visit Provider Internal Medicine | DX: M86.9 Osteomyelitis, unspecified (principal) | CPT/HCPCS: 96365; J1335 ==

== ENCOUNTER 2023-03-09 09:20 | Outpatient (REF) | payer BC, SELFPAY | END 2023-03-09 09:21 | disposition home or self-care (01) | LOC: HO.MDS 09:20 | PROVIDERS: PCP Family Medicine; Visit Provider Internal Medicine | DX: M86.9 Osteomyelitis, unspecified (principal) | CPT/HCPCS: 96365; J1335 ==

== ENCOUNTER 2023-03-10 09:20 | Outpatient (REF) | payer BC, SELFPAY | END 2023-03-10 09:21 | disposition home or self-care (01) | LOC: HO.MDS 09:20 | PROVIDERS: Visit Provider Internal Medicine | DX: M86.9 Osteomyelitis, unspecified (principal) | CPT/HCPCS: 96365; J1335 ==

== ENCOUNTER 2023-03-10 14:32 | Outpatient (REF) | payer BC, SELFPAY ==
[2023-03-10 14:47] LABS: MANUAL DIFF FLAG NO
[2023-03-10 15:24] LABS: Basophils Percent Auto 0.3 % (0-2); Eosinophils Absolute Auto 0.1 X10*3/uL (0.0-0.4); Eosinophils Percent Auto 0.8 % (0-4); Hematocrit 44.5 % (42.0-52.0); Hemoglobin 14.4 g/dl (14.0-18.0); Imm Gran Abs Auto 0.02 X10*3/uL (0.00-0.03); Imm Gran Pct Auto 0.2 % (0.0-0.4); Lymphocytes Absolute Auto 1.8 X10*3/uL (1.2-4.9); Lymphocytes Percent Auto 18.4 % (20-40); Mean Corpuscular HGB Conc 32.4 g/dl (31.0-36.0); Mean Corpuscular Hemoglobin 27.4 pg (27.0-33.0); Mean Corpuscular Volume 84.8 fL (80.0-98.0); Monocytes Absolute Auto 0.6 X10*3/uL (0.1-1.2); Monocytes Percent Auto 6.1 % (2-11); Neutrophils Absolute Auto 7.4 x10*3/uL (2.0-8.3); Neutrophils Percent Auto 74.2 % (45-73); Platelet Count 242 X10*3/uL (160-400); Red Blood Count 5.25 X10*6/uL (4.60-5.80); Red Cell Distribution Width 14.9 % (11.0-16.0)
[2023-03-10 15:51] LABS: Estimated Glomerular Filt Rate > 60
== END 2023-03-10 14:33 | disposition home or self-care (01) ==
LOC: HO.LAB 14:32
PROVIDERS: Visit Provider Internal Medicine
DX: M86.9 Osteomyelitis, unspecified (principal)
CPT/HCPCS: 36415; 82565; 85025

== ENCOUNTER 2023-03-11 14:03 | Outpatient (REF) | payer BC, SELFPAY | END 2023-03-11 14:04 | disposition home or self-care (01) | LOC: HO.MDS 14:03 | PROVIDERS: Visit Provider Internal Medicine | DX: M86.9 Osteomyelitis, unspecified (principal) | CPT/HCPCS: 96365; J1335 ==

== ENCOUNTER 2023-03-12 09:19 | Outpatient (REF) | payer BC, SELFPAY | END 2023-03-12 09:20 | disposition home or self-care (01) | LOC: HO.MDS 09:19 | PROVIDERS: PCP Family Medicine; Visit Provider Internal Medicine | DX: M86.9 Osteomyelitis, unspecified (principal) | CPT/HCPCS: 96365; J1335 ==

== ENCOUNTER 2023-03-13 09:15 | Outpatient (REF) | payer BC, SELFPAY | END 2023-03-13 09:16 | disposition home or self-care (01) | LOC: HO.MDS 09:15 | PROVIDERS: Visit Provider Internal Medicine | DX: M86.9 Osteomyelitis, unspecified (principal) | CPT/HCPCS: 96365; J1335 ==

== ENCOUNTER 2023-03-14 09:11 | Outpatient (REF) | payer BC, SELFPAY | END 2023-03-14 09:12 | disposition home or self-care (01) | LOC: HO.MDS 09:11 | PROVIDERS: Visit Provider Internal Medicine | DX: M86.9 Osteomyelitis, unspecified (principal) | CPT/HCPCS: 96365; J1335 ==

== ENCOUNTER 2023-03-15 09:18 | Outpatient (REF) | payer BC, SELFPAY | END 2023-03-15 09:19 | disposition home or self-care (01) | LOC: HO.MDS 09:18 | PROVIDERS: Visit Provider Internal Medicine | DX: M86.9 Osteomyelitis, unspecified (principal) | CPT/HCPCS: 96365; J1335 ==

== ENCOUNTER 2023-03-16 09:07 | Outpatient (REF) | payer BC, SELFPAY | END 2023-03-16 09:08 | disposition home or self-care (01) | LOC: HO.MDS 09:07 | PROVIDERS: Visit Provider Internal Medicine | DX: M86.9 Osteomyelitis, unspecified (principal) | CPT/HCPCS: 96365; J1335 ==

== ENCOUNTER 2023-03-17 09:08 | Outpatient (REF) | payer BC, SELFPAY ==
[2023-03-17 11:41] LABS: Estimated Glomerular Filt Rate > 60
== END 2023-03-17 09:09 | disposition home or self-care (01) ==
LOC: HO.MDS 09:08
PROVIDERS: PCP Family Medicine; Visit Provider Internal Medicine
DX: M86.9 Osteomyelitis, unspecified (principal)
CPT/HCPCS: 36415; 82565; 96365; J1335

== ENCOUNTER 2023-03-18 09:10 | Outpatient (REF) | payer BC, SELFPAY | END 2023-03-18 09:11 | disposition home or self-care (01) | LOC: HO.MDS 09:10 | PROVIDERS: Visit Provider Internal Medicine | DX: M86.9 Osteomyelitis, unspecified (principal) | CPT/HCPCS: 96365; J1335 ==

== ENCOUNTER 2023-03-19 09:44 | Outpatient (REF) | payer BC, SELFPAY | END 2023-03-19 09:45 | disposition home or self-care (01) | LOC: HO.MDS 09:44 | PROVIDERS: Visit Provider Internal Medicine | DX: M86.9 Osteomyelitis, unspecified (principal) | CPT/HCPCS: 96365; J1335 ==

== ENCOUNTER 2023-03-20 09:41 | Outpatient (REF) | payer BC, SELFPAY | END 2023-03-20 09:42 | disposition home or self-care (01) | LOC: HO.MDS 09:41 | PROVIDERS: PCP Family Medicine; Visit Provider Internal Medicine | DX: M86.9 Osteomyelitis, unspecified (principal) | CPT/HCPCS: 96365; J1335 ==

== ENCOUNTER 2023-03-21 09:09 | Outpatient (REF) | payer BC, SELFPAY | END 2023-03-21 09:10 | disposition home or self-care (01) | LOC: HO.MDS 09:09 | PROVIDERS: Visit Provider Internal Medicine | DX: M86.9 Osteomyelitis, unspecified (principal) | CPT/HCPCS: 96365; J1335 ==

== ENCOUNTER 2023-03-22 09:07 | Outpatient (REF) | payer BC, SELFPAY | END 2023-03-22 09:08 | disposition home or self-care (01) | LOC: HO.MDS 09:07 | PROVIDERS: Visit Provider Internal Medicine | DX: M86.9 Osteomyelitis, unspecified (principal) | CPT/HCPCS: 96365; J1335 ==

== ENCOUNTER 2023-03-23 09:16 | Outpatient (REF) | payer BC, SELFPAY | END 2023-03-23 09:17 | disposition home or self-care (01) | LOC: HO.MDS 09:16 | PROVIDERS: Visit Provider Internal Medicine | DX: M86.9 Osteomyelitis, unspecified (principal) | CPT/HCPCS: 96365; J1335 ==

== ENCOUNTER 2023-03-23 14:08 | Outpatient (AMB) | payer BC, SELFPAY ==
--- NOTE | 2023-03-23 14:10 | A.OFFVIS_ITS ---
Intake Vital Signs 3 03/23/23 14:25 Height 5 ft 7 in Weight 319 lb BMI 50.0 BP 150/80 H Blood Pressure Location Lt brachial Position Sitting Pulse 85 Pulse Source Pulse Oximeter Pulse Oximetry (%) 97 Intake Visit Reasons: end/antibx/ertepenem 42days/started 02/10 Allergies No Known Allergies Allergy (Verified 03/04/23 14:00) HPI end/antibx/ertepenem 42days/started 02/10 2 HPI0 Details He has left lateral foot improving. He has no fever or chills. [facility] Medical History Osteomyelitis of left foot Diabetic foot ulcer associated with type 2 diabetes mellitus Atrial fibrillation Diabetes mellitus type II, non insulin dependent HLD (hyperlipidemia) HTN (hypertension) Diabetes PAD (peripheral artery disease) Family History Other HTN (hypertension) Social History [facility]hold Members: [facility] Do you presently have visiting nurse or other home services: No Patient Tobacco Use Status: Never used Tobacco service: No Current occupational status: employed Physical Exam Vital Signs: Last Vital Signs Pulse 85 03/23/23 14:25 BP 150/80 H 03/23/23 14:25 Pulse Ox 97 03/23/23 14:25 BMI result Body Mass Index 50.0 Const Other: General: cooperative Orientation/consciousness: patient oriented x3 HEENT Head: Yes normal to inspection Mouth: Normal oral and palatal mucosa present Eyes General: appearance normal, both eyes and all related structures Pupils: Equal, round and reactive pupils present Resp Effort & Inspection: normal respiratory effort Cardio Rate: regular rate Rhythm: regular rhythm GI Palpation (GI): Soft to palpation and nontender General: Yes no CVA tenderness Back/Spine/Pelvis Back: no CVA tenderness Skin General skin exam: no rashes or lesions noted Neuro General: patient oriented x3 Cranial nerves: Yes CN's II-XII intact bilaterally and Yes Equal, round and reactive pupils present Extrem Other: improving foot General: Yes normal to inspection Psych Appearance: grossly normal Assessment & Plan Assessment & Plan (1) Osteomyelitis of left foot: Comment: He has had left great toe amputation 06/2022. He has nonhealing lateral infection He is feeling well and feels healing. Code(s): M86.9 - Osteomyelitis, unspecified Plan Stop IV Ertapenem tomorrow. Po Doxycycline for a month See in one month. Orders: Orders 2 IR cvc remove any age Today M86.9 - Osteomyelitis, unspecified Medications: New 2 doxycycline hyclate 100 mg PO BID 60 tabs 0RF 30 days Coding Level of Care Code Est Pt Level 3 (02703) Diagnoses Osteomyelitis of left foot M86.9
[2023-03-23 14:25] VITALS: BP 150/80; PULSE 85; O2SAT 97; BMI 50.0
== END 2023-03-23 14:56 | disposition home or self-care (01) ==
LOC: HO.HID 14:08
PROVIDERS: PCP Family Medicine; Visit Provider Internal Medicine
DX: M86.9 Osteomyelitis, unspecified (principal)
CPT/HCPCS: 99213

== ENCOUNTER 2023-03-24 13:41 | Outpatient (REF) | payer BC, SELFPAY | END 2023-03-24 13:42 | disposition home or self-care (01) | LOC: HO.RADIR 13:41 | PROVIDERS: Visit Provider Internal Medicine | DX: Z13.89 Encounter for screening for other disorder (principal) ==

== ENCOUNTER 2023-03-31 14:07 | Outpatient (AMB) | payer BC, SELFPAY ==
[2023-03-31 14:20] VITALS: BMI 50.0
--- NOTE | 2023-03-31 14:20 | MHC.OFFVIS ---
Intake Vital Signs 03/31/23 14:20 Height 5 ft 7 in Weight 319 lb BMI 50.0 Intake Visit Reasons: 1 mo wound check Intake Note: 1 mo wound check Left foot ulcer w/ Hx of Left great toe amp 07/19/22 & Dx Angio 07/14/22. Has [facility] 1 x per week and W[facility] Care Center about 1 a week, WoundCare appts vary. Waiting to hear about getting HBO. Dressing changes 3 times per week Accompanied by: Self / Same As Patient Allergies No Known Allergies Allergy (Verified 03/31/23 14:25) HPI 1 mo wound check HPI Details Very pleasant 62-year-old gentleman presents for routine wound check regarding his left lower extremity. His great toe amputation has gone on to heal. He has this lateral aspects small wound that his been followed by the Wound Care Center. The concern is that a penetrates to bone. He has undergone treatment with 6 weeks of IV antibiotics. He now presents for routine follow-up. [facility] Medical History Osteomyelitis of left foot Diabetic foot ulcer associated with type 2 diabetes mellitus Atrial fibrillation Diabetes mellitus type II, non insulin dependent HLD (hyperlipidemia) HTN (hypertension) Diabetes PAD (peripheral artery disease) Family History Other HTN (hypertension) Social History Household Members: None Housing: Condominium Do you presently have visiting nurse or other home services: No Patient Tobacco Use Status: Never used Tobacco service: No Current occupational status: employed Review of Systems Const All systems reviewed & are unremarkable except as noted in HPI and below Reports no additional complaints ENT Reports Normal hearing present Card Denies chest pain, Denies chest pain at rest, Denies chest pain with activity and Denies pedal edema Resp Denies cough GI Denies abdominal pain Musc Denies abnormal gait, Denies muscle cramps and Denies radiating pain into limb Skin/Breast Denies skin ulcer and Denies wounds Neuro Reports Normal hearing present and Denies abnormal gait Psych Reports no additional complaints Physical Exam Vital Signs: BMI result Body Mass Index 50.0 Const General: cooperative, healthy appearing and comfortable Orientation/consciousness: oriented to person, oriented to place and oriented to time HEENT Head: Yes normal to inspection Neck Neck: Yes normal visual inspection Carotids: no bruits Chest Chest palpation & inspection: normal inspection of the chest Resp Effort & Inspection: normal respiratory effort and able to speak in complete sentences Auscultation: clear to auscultation bilaterally, no crackles, no rales, no rhonchi and no wheezes Cardio Rate: regular rate Rhythm: regular rhythm Heart sounds: S1 normal heart sound present and S2 normal heart sound present Bruits: no carotid bruits Peripheral pulses: Peripheral pulses 2+ throughout GI Inspection: Yes normal to inspection Skin Other: Left great toe healed - left lateral foot ulceration 0.4 cm in diameter but does penetrate down to 1.8 cm. Wounds: no wounds Hair: normal Neuro General: oriented to person, oriented to place and oriented to time Cranial nerves: Yes CN's II-XII intact bilaterally and Yes Normal hearing present Cognition (Neuro): normal cognition Motor exam (neuro): 5/5 motor strength present throughout Extrem Other: venous exam: No significant superficial varicosities or spider telangiectasias, minimal edema General: No clubbing, No cyanosis and No edema Psych Appearance: grossly normal Mental Status: mental status grossly normal Speech and movement: Normal speech and movement present Assessment & Plan Assessment & Plan (1) PAD (peripheral artery disease): Comment: 07/14/2022- diagnostic angiogram 07/19/2022 - left great toe amp Code(s): I73.9 - Peripheral vascular disease, unspecified Plan: In short patient has great toe amp appears to be doing extremely well. The concern is this lateral foot ulceration. It has been chronic in nature and does penetrate down to bone. He is awaiting possibility of hyperbaric oxygen. From our perspective he is currently stable. We will plan for 3 month arterial surveillance. Thank you for allowing us to assist in his care. Coding Level of Care Code Est Pt Level 4 (32965) Diagnoses PAD (peripheral artery disease) I73.9
== END 2023-03-31 14:47 | disposition home or self-care (01) ==
PROVIDERS: PCP Family Medicine; Visit Provider Surgery Vascular Surgery
DX: I73.9 Peripheral vascular disease, unspecified (principal); Z89.412 Acquired absence of left great toe
CPT/HCPCS: 99214

== ENCOUNTER → 2023-03-31 14:07 | Outpatient (BNVA) | payer BC, SELFPAY | PROVIDERS: PCP Family Medicine; Visit Provider Surgery Vascular Surgery ==

== ENCOUNTER 2023-04-20 11:22 | Outpatient (AMB) | payer BC, SELFPAY ==
--- NOTE | 2023-04-20 11:33 | A.OFFVIS_ITS ---
Intake Vital Signs 3 04/20/23 11:34 Height 5 ft 7 in Weight 328 lb BMI 51.4 BP 156/76 H Pulse 90 Pulse Source Pulse Oximeter Pulse Oximetry (%) 98 Intake Visit Reasons: f/u 1 mth end of abx line Allergies No Known Allergies Allergy (Verified 04/20/23 11:47) HPI f/u 1 mth end of abx line 2 HPI0 Details He has finished Ertapenem and now is on Doxycycline. Foot appears stable. He visits Wound Care. [facility] Medical History Osteomyelitis of left foot Diabetic foot ulcer associated with type 2 diabetes mellitus Atrial fibrillation Diabetes mellitus type II, non insulin dependent HLD (hyperlipidemia) HTN (hypertension) Diabetes PAD (peripheral artery disease) Family History Other HTN (hypertension) Social History [facility] Members: [facility] Do you presently have visiting nurse or other home services: No Patient Tobacco Use Status: Never used Tobacco service: No Current occupational status: employed Review of Systems Const All systems reviewed & are unremarkable except as noted in HPI and below Physical Exam Vital Signs: Last Vital Signs Pulse 90 04/20/23 11:34 BP 156/76 H 04/20/23 11:34 Pulse Ox 98 04/20/23 11:34 BMI result Body Mass Index 51.4 Const General: cooperative Orientation/consciousness: patient oriented x3 HEENT Head: Yes normal to inspection Mouth: Normal oral and palatal mucosa present Eyes General: appearance normal, both eyes and all related structures Pupils: Equal, round and reactive pupils present Resp Effort & Inspection: normal respiratory effort Cardio Rate: regular rate Rhythm: regular rhythm GI Palpation (GI): Soft to palpation and nontender General: Yes no CVA tenderness Back/Spine/Pelvis Back: no CVA tenderness Skin General skin exam: no rashes or lesions noted Neuro General: patient oriented x3 Cranial nerves: Yes CN's II-XII intact bilaterally and Yes Equal, round and reactive pupils present Extrem Other: healing foot Psych Appearance: grossly normal Assessment & Plan Assessment & Plan (1) Osteomyelitis of left foot: Comment: He has had left great toe amputation 06/2022. He has nonhealing lateral infection He is feeling well and feels healing. Code(s): M86.9 - Osteomyelitis, unspecified Plan Finish Doxycycline. See again as needed,no appointment made at this time. Coding Level of Care Code Est Pt Level 3 (87225) Diagnoses Osteomyelitis of left foot M86.9
[2023-04-20 11:34] VITALS: BP 156/76; PULSE 90; O2SAT 98; BMI 51.4
== END 2023-04-20 13:08 | disposition home or self-care (01) ==
PROVIDERS: PCP Family Medicine; Visit Provider Internal Medicine
DX: M86.9 Osteomyelitis, unspecified (principal)
CPT/HCPCS: 99213

== ENCOUNTER → 2023-04-20 11:22 | Outpatient (BNVA) | payer BC, SELFPAY | PROVIDERS: PCP Family Medicine; Visit Provider Internal Medicine ==

== ENCOUNTER 2023-07-04 09:05 | Outpatient (REF) | payer BC, SELFPAY ==
--- NOTE | ~2023-07-04 | US_ITS ---
EXAMINATION: NONINVASIVE ASSESSMENT OF THE ARTERIES OF BOTH LOWER EXTREMITIES INCLUDING PVR EXAM AND BILATERAL LOWER EXTREMITY DUPLEX CLINICAL INFORMATION: Peripheral vascular disease COMPARISON: Lower extremity duplex and MIGUEL ANGEL's December 08, 2022 TECHNIQUE: Ankle pulse volume recordings, ankle pressure measurements and ankle brachial indices were obtained of the lower extremity arterial system bilaterally in addition to duplex Doppler techniques with wave form analysis and measurement of velocities in the common femoral, profunda femoral, superficial femoral, popliteal, tibial and peroneal arteries. The study was performed only at rest. FINDINGS: RIGHT LEG 1. Right Ankle-Brachial Index: 1.45 (higher of the DP/PT) >0.97-1.25 = normal - no significant arterial disease 0.75-0.96 = mild peripheral arterial disease 0.5-0.74 = moderate peripheral arterial disease <0.50 = severe peripheral arterial disease <0.30 = critical arterial disease 2. Segmental Pressures (mmHg): Brachial: 138 Ankle: DP 200 3. PVR Waveforms: Ankle: Triphasic 4. Direct Duplex: Common femoral artery: 150 cm/s, Multiphasic Profunda femoris artery: 116 cm/s, Multiphasic Superficial femoral artery (proximal): 103 cm/s, Multiphasic Superficial femoral artery (mid): 118 cm/s, Multiphasic Superficial femoral artery (distal): 80.9 cm/s, Multiphasic Proximal Popliteal artery: 103 cm/s, Multiphasic Posterior tibial artery: Occluded versus calcified dean LEFT LE. Left Ankle-Brachial Index: Inaudible (higher of the DP/PT) >0.97-1.25 = normal - no significant arterial disease 0.75-0.96 = mild peripheral arterial disease 0.5-0.74 = moderate peripheral arterial disease <0.50 = severe peripheral arterial disease <0.30 = critical arterial disease 2. Segmental Pressures: Brachial: 127 Ankle: PT inaudible, DP inaudible 3. PVR Waveforms: Ankle: Triphasic 4. Direct Duplex: Common femoral artery: 155 cm/s, Multiphasic Profunda femoris artery: 123 cm/s, Multiphasic Superficial femoral artery (proximal): 122 cm/s, Multiphasic Superficial femoral artery (mid): 103 cm/s, Multiphasic Superficial femoral artery (distal): 84.1 cm/s, Multiphasic Popliteal artery: 102 cm/s, Multiphasic Posterior tibial artery: 30.7 cm/s, Multiphasic Anterior tibial artery: 110 cm/s, Multiphasic US/US MIGUEL ANGEL complete IMPRESSION: 1. Elevated right MIGUEL ANGEL and segmental pressure >200 mmHg in the right dorsalis pedis artery, consistent with calcified, noncompressible vessel. The right posterior tibial artery is occluded or heavily calcified. 2. Unable to obtain a left MIGUEL ANGEL as the DP and PT were both inaudible. 3. The left posterior tibial artery and anterior tibial artery are patent on duplex, but there is diminished flow in the left posterior tibial artery.
== END 2023-07-04 09:06 | disposition home or self-care (01) ==
LOC: HO.US 09:05
PROVIDERS: Visit Provider Surgery Vascular Surgery
DX: I73.9 Peripheral vascular disease, unspecified (principal)
CPT/HCPCS: 93923; 93925

== ENCOUNTER 2023-07-12 08:40 | Outpatient (AMB) | payer BC, SELFPAY ==
[2023-07-12 08:51] VITALS: BP 136/74; PULSE 89; O2SAT 95; BMI 49.2
--- NOTE | 2023-07-12 08:51 | A.OFFVIS_ITS ---
Intake Vital Signs 07/12/23 08:51 Height 5 ft 7 in Weight 314 lb BMI 49.2 BP 136/74 Blood Pressure Location Rt brachial Position Sitting Pulse 89 Pulse Source Pulse Oximeter Pulse Oximetry (%) 95 Oxygen Delivery Method Room Air Intake Visit Reasons: arterial US fu Intake Note: Pt presents to the office today for a arterial US follow up. Pt states he is feeling well and denies any concerns at this time. Allergies No Known Allergies Allergy (Verified 07/12/23 08:52) HPI arterial US fu HPI Details Very pleasant 63-year-old gentleman presents for routine surveillance follow-up for peripheral vascular disease. Had undergone left great toe amp nearly a year ago. It remains healed. He appears to be doing extremely well otherwise. No interval issues. Now for follow-up with arterial ultrasound. [facility] Medical History Osteomyelitis of left foot Diabetic foot ulcer associated with type 2 diabetes mellitus Atrial fibrillation Diabetes mellitus type II, non insulin dependent HLD (hyperlipidemia) HTN (hypertension) Diabetes PAD (peripheral artery disease) Family History Other HTN (hypertension) Social History Household Members: None Housing: Condominium Do you presently have visiting nurse or other home services: No Patient Tobacco Use Status: Never used Tobacco service: No Current occupational status: employed Review of Systems Const All systems reviewed & are unremarkable except as noted in HPI and below Reports no additional complaints ENT Reports Normal hearing present Card Denies chest pain, Denies chest pain at rest, Denies chest pain with activity and Denies pedal edema Resp Denies cough GI Denies abdominal pain Musc Denies abnormal gait, Denies muscle cramps and Denies radiating pain into limb Skin/Breast Denies skin ulcer and Denies wounds Neuro Reports Normal hearing present and Denies abnormal gait Psych Reports no additional complaints Physical Exam Vital Signs: Last Vital Signs Pulse 89 07/12/23 08:51 BP 136/74 07/12/23 08:51 Pulse Ox 95 07/12/23 08:51 Oxygen Delivery Method Room Air 07/12/23 08:51 BMI result Body Mass Index 49.2 Const General: cooperative, healthy appearing and comfortable Orientation/consciousness: oriented to person, oriented to place and oriented to time HEENT Head: Yes normal to inspection Neck Neck: Yes normal visual inspection Carotids: no bruits Chest Chest palpation & inspection: normal inspection of the chest Resp Effort & Inspection: normal respiratory effort and able to speak in complete sentences Auscultation: clear to auscultation bilaterally, no crackles, no rales, no rhonchi and no wheezes Cardio Other: Palpable DP bilaterally Rate: regular rate Rhythm: regular rhythm Heart sounds: S1 normal heart sound present and S2 normal heart sound present Bruits: no carotid bruits Peripheral pulses: Peripheral pulses 2+ throughout GI Inspection: Yes normal to inspection Skin Wounds: no wounds and amputation site (Left great toe amp healed) Hair: normal Neuro General: oriented to person, oriented to place and oriented to time Cranial nerves: Yes CN's II-XII intact bilaterally and Yes Normal hearing present Cognition (Neuro): normal cognition Motor exam (neuro): 5/5 motor strength present throughout Extrem Other: venous exam: No significant superficial varicosities or spider telangiectasias, minimal edema General: No clubbing, No cyanosis and No edema Psych Appearance: grossly normal Mental Status: mental status grossly normal Speech and movement: Normal speech and movement present Results Reviewed Results Reviewed: Noninvasive arterial testing dated 07/04/2023 demonstrates MIGUEL ANGEL on the right of 1.45 and the left unobtainable but multi phasic flow down both lower extremities. Written report and images were reviewed. Assessment & Plan Assessment & Plan (1) PAD (peripheral artery disease): Comment: 07/14/2022- diagnostic angiogram 07/19/2022 - left great toe amp Code(s): I73.9 - Peripheral vascular disease, unspecified Plan: In short patient has stable peripheral vascular disease. I did review the pathophysiology of peripheral vascular disease with the patient. In addition we did discuss routine conservative measures including a healthy diet and the importance of exercise and ambulation. In addition we did spend some time discussing the importance of diabetes control as well. We did discuss risk factor modification. The patient will continue to to follow-up with surveillance follow-up in approximately 1 year. Thank you for allowing us to participate in this patient's care. If there are any questions or concerns please do not hesitate to contact us. Orders: Orders US arterial duplex BI w/ MIGUEL ANGEL 364 Days I73.9 - Peripheral vascular disease, unspecified Coding Level of Care Code Est Pt Level 4 (53802) Diagnoses PAD (peripheral artery disease) I73.9
== END 2023-07-12 09:12 | disposition home or self-care (01) ==
PROVIDERS: PCP Family Medicine; Visit Provider Surgery Vascular Surgery
DX: I73.9 Peripheral vascular disease, unspecified (principal)
CPT/HCPCS: 99213

== ENCOUNTER → 2023-07-12 08:40 | Outpatient (BNVA) | payer BC, SELFPAY | PROVIDERS: PCP Family Medicine; Visit Provider Surgery Vascular Surgery ==

== ENCOUNTER 2024-01-09 12:46 | Outpatient (RCR) | payer BC, SELFPAY ==
--- NOTE | ~2024-01-09 | XR_ITS ---
EXAMINATION: XR FOOT, RIGHT CLINICAL INFORMATION: Nonhealing wound, attention to the fourth toe. COMPARISON: Radiograph right foot 11/11/2021. TECHNIQUE: AP, lateral, and oblique views of the right foot. FINDINGS: Diffuse soft tissue swelling that is slightly more noticeable around the first and fourth distal toes. No unexpected radiopaque foreign bodies. Severe vascular calcifications. New focal erosive changes along the lateral surface of the middle phalanx of the fourth toe. Moderate multifocal degenerative osteoarthritis. Prominent calcaneal spurs. XR/XR foot RT min 3V IMPRESSION: New focal erosive changes along the lateral surface of the middle phalanx of the fourth toe, concerning for osteomyelitis. The report will be called to the ordering clinician by a [facility] [employer] Shop Inspector.
== END 2024-05-18 13:38 | disposition home or self-care (01) ==
LOC: HO.WCC 12:46
PROVIDERS: PCP Nurse Practitioner Family; Visit Provider Physician Assistant
DX: E11.621 Type 2 diabetes mellitus with foot ulcer (principal); L97.512 Non-pressure chronic ulcer of other part of right foot with fat layer exposed; E11.69 Type 2 diabetes mellitus with other specified complication; M86.471 Chronic osteomyelitis with draining sinus, right ankle and foot; I48.20 Chronic atrial fibrillation, unspecified; Z79.84 Long term (current) use of oral hypoglycemic drugs; Z79.85 Long-term (current) use of injectable non-insulin antidiabetic drugs; Z79.01 Long term (current) use of anticoagulants; Z79.899 Other long term (current) drug therapy
CPT/HCPCS: 11042; 73630; 87070; 87073; 87077; 87186; 87205; 97597; 99212

== ENCOUNTER 2024-07-02 08:16 | Outpatient (REF) | payer BC, SELFPAY ==
--- NOTE | ~2024-07-02 | US_ITS ---
CLINICAL HISTORY: I73.9 - Peripheral vascular disease, unspecified Arterial duplex ultrasound bilateral lower extremity with ABIs. Comparison: None Findings: Right lower extremity: Mildly elevated velocity in the common femoral artery at 158 centimeters/second falling within the 30-49% stenosis range. Normal triphasic flow pattern. Normal velocities and triphasic flow in the deep and superficial femoral artery and popliteal artery. Peroneal artery not visualized. Heavily calcified occluded appearing posterior tibial artery. Triphasic flow with normal velocity in the anterior tibial artery. Monophasic flow with mildly dampened velocity in the dorsalis pedis. Left lower extremity: Similar mild velocity elevation in the common femoral artery in the 30-49% stenosis range with triphasic flow. Normal velocities and triphasic flow in the deep femoral and proximal superficial femoral artery. Biphasic flow with normal velocity in the popliteal artery. Nonvisualization of the peroneal artery. Heavily calcified posterior tibial artery. Monophasic flow with mildly dampened velocity proximally. Calcified anterior tibial artery with monophasic flow and dampened velocity. Dampened monophasic flow in the dorsalis pedis. Right brachial artery 162 mmHg Right posterior tibial artery 150 mmHg Right dorsalis pedis artery 140 mmHg Left brachial artery 156 mmHg Left posterior tibial artery 189 mmHg Left dorsalis pedis artery 55 mmHg 1. Right MIGUEL ANGEL 0.93 2. Left MIGUEL ANGEL 1.2 Pulse volume recordings demonstrating mild loss of dicrotic notch although otherwise relative preservation of amplitude. Impression: No sonographic features for hemodynamically significant femoral popliteal stenosis on either side. Infrapopliteal disease with heavily calcified runoff vessels limiting detail. Occluded appearing right posterior tibial artery and monophasic flow in the anterior tibial artery and dorsalis pedis. Monophasic flow in the left anterior and posterior tibial arteries and dorsalis pedis. Ankle pressure obtained of the level of the posterior tibial artery at 150 mm Hg although conceivably this could be from the anterior tibial artery. Normal left MIGUEL ANGEL at 1.2. Right acceptable at 0.93. This document has been electronically signed by: Danyel Goldstein MD on 07/04/2024 13:40:20
--- OUTSIDE RECORDS SUMMARY | 2024-07-02 08:33 | XMS_ITS | Continuity of Care Document ---
Author Organization [facility] Address [address] [place] [address] Phone [phone] Care Team Providers Care Loom Setter Fourdrinier Name Role Phone Loretta Guevara M.D. Care Team Information Receiv er [phone] Hailey Jean [facility] Care Team Information Rec eiver [phone] Problems Active Problems Provider Date Type 2 diabetes mellitus Jose Max M.D. O nset: 08/09/2022 Atrial fibrillation Jose Max M.D. Onset: 08/09/2022 Essential hypertension Jose Max M.D. Ons et: 08/09/2022 Hypercholesterolemia Jose Max M.D. Onset : 08/09/2022 Obstructive sleep apnea syndrome Jose Max M.D. Onset: 08/09/2022 Severe obesity Jose Max M.D. Onset: Peripheral arterial occlusive disease Jose edgar M.D. Onset: 08/09/2022 Sleep apnea Jose Max M.D. Onset: Hyperlipidemia Jose Max M.D. Onset: Social History Type Date Description Comments Sex Unknown Tobacco Use Start: Unknown Never Smoked Cigarettes Smoking Status Reviewed: 01/11/23 Never Smoked Cigaret vianca Allergies and adverse reactions Description No Known Drug Allergies Medications Active Medications SIG Qnty Indications Order ing Provider Date Metformin HCL [id number] Tablets ER 24HR Take 1 Tablet By Mouth Twice A Day 180tabs Jose Max M.D. 01/11/2023 Trulicity0.75mg/0.5M L Solution Pen-Inject inject 1 pen once a week for 30 days 6ml Jose Max M.D. 01/11/2023 Fluticasone Wivxssmqtk48rsk/Act Suspension [place] 1 [place] Into Each Nostril 2 Times Daily as Needed For Nasal Congestion Unknown [id number] Capsules Take 1 Capsule By Mouth Twice A Day Loretta Guevara M.D. Ubhmuve7wa Tablets Take 1 Tablet By Mouth Twice A Day Loretta Guevara M.D. Atorvastatin Wdsuhpl05nq Tablets Take 1 Tablet By Mouth Every Day Loretta Guevara M.D. Freestyle LancetsMisc Use To Test Sugar Twice A Day Loretta Guevara M.D. Glipizide ER5mg Tablets ER 24HR Take half qam Loretta Guevara M.D. Amiodarone [id number] Tablets Take half Tablet By Mouth Every Day Unknown Oniukyxbjg18kh Tablets Take 1and one halfTABLET By Mouth Every Day Unknown Diltiazem HCL ER Coated [id number] Caps ER 24HR Take 1 Capsule By Mouth Every Day Unknown Vital Signs Date Vital Result Comment 04/06/2024 9:05am BP Systolic 128 mmHg BP Diastolic 64 mmHg Heart Rate 87 /min Height 67 inches 5'7 Weight 313.38 lb BMI (Body Mass Index) 49.1 kg/m2 Results Test Acquired Date Facility Test Result H/L Range N ote Laboratory test finding 04/06/2024 Inhouse Glucose Fingerstick 163 Laboratory test finding 12/15/2023 Inhouse Glucose Fingerstick 68 Hemoglobin A1c 5.5% Laboratory test finding 08/16/2023 Inhouse Glucose Fingerstick 121 Hemoglobin A1c 6.7% Laboratory test finding 04/14/2023 Inhouse Glucose Fingerstick 102 Hemoglobin A1c 6.2% Laboratory test finding 02/04/2023 [facility] TSH With Reflex To FT4 3.98 uIU/mL (0.4-4.2) Laboratory test finding 01/11/2023 Inhouse Glucose Fingerstick 105 Hemoglobin A1c 6.5% Laboratory test finding 09/08/2022 Inhouse Glucose Fingerstick 108 Hemoglobin A1c 6.6% Laboratory test finding 08/09/2022 Inhouse Glucose Fingerstick 138 Medical Devices Description No Information Available Encounters Type Date Location Provider Dx Diagnosis Office Visit 04/06/2024 8:45a Main Office JOHN Diaz E11.9 Type 2 diabet es mellitus without complications Assessments Date Code Description Provider 04/06/2024 E11.9 Type 2 diabetes mellitus wit hout complications JOHN Diaz Plan of Treatment Future Appointment(s):* 08/01/2024 10:45 am - JOHN Diaz at Main Office 12/15/2023 - Jose Max M.D.* E11.9 Type 2 diabetes mellitus without complications * E78.00 Hypercholesterolemia * E66.9 Obesity * I48.91 Atrial fibrillation * G47.30 Sleep apnea Functional Status Description No Information Available Mental Status Description No Information Available Referrals Description No Information Available
== END 2024-07-02 08:17 | disposition home or self-care (01) ==
LOC: HO.US 08:16
PROVIDERS: PCP Nurse Practitioner Family; Visit Provider Surgery Vascular Surgery
DX: I73.9 Peripheral vascular disease, unspecified (principal)
CPT/HCPCS: 93922; 93925

== ENCOUNTER → 2024-07-02 08:18 | Outpatient (BNV) | payer BC, SELFPAY | PROVIDERS: PCP Nurse Practitioner Family; Visit Provider Radiology Diagnostic Radiology | DX: I73.9 Peripheral vascular disease, unspecified (principal) | CPT/HCPCS: 93922 ==

== ENCOUNTER 2024-07-12 10:41 | Outpatient (AMB) | payer BC, SELFPAY ==
[2024-07-12 10:49] VITALS: BMI 49.2
--- NOTE | 2024-07-12 10:49 | A.OFFVIS_ITS ---
Vital Signs 07/12/24 10:49 Height 5 ft 7 in Weight 314 lb BMI 49.2 Intake Visit Reasons: 1 yr follow up Art 07/04/23 Intake Note: 1 yr follow up Arterial 07/02/24. Hx of diagnostic angio 07/14/22, Left great toe amp 07/19/22. Pt states he has a wound on his right foot, between 4th & 5th toes, started in April 2024, seen by podiatry, question if needs woundcare service? Accompanied by: Self / Same As Patient Allergies No Known Allergies Allergy (Verified 07/12/24 10:52) HPI HPI 1 yr follow up Art 07/04/23: Details: Pleasant 64-year-old gentleman presents for routine surveillance follow-up regarding peripheral vascular disease. He had actually undergone endovascular intervention and left great toe amp. It has gone on to heal and has been following up with Podiatry regarding his feet. Has had no interval issues. Reports he is doing fairly well. Tries to remain active and reports that he has lost about 12 lb. He now presents for routine follow-up. [facility] Medical History Osteomyelitis of left foot Diabetic foot ulcer associated with type 2 diabetes mellitus Atrial fibrillation Diabetes mellitus type II, non insulin dependent HLD (hyperlipidemia) HTN (hypertension) Diabetes PAD (peripheral artery disease) Family History Other HTN (hypertension) Social History Household Members: None Housing: Condominium Do you presently have visiting nurse or other home services: No Patient Tobacco Use Status: Never used Tobacco service: No Current occupational status: employed Review of Systems Const All systems reviewed & are unremarkable except as noted in HPI and below Reports no additional complaints ENT Reports Normal hearing present Card Denies chest pain, Denies chest pain at rest, Denies chest pain with activity and Denies pedal edema Resp Denies cough GI Denies abdominal pain Musc Denies abnormal gait, Denies muscle cramps and Denies radiating pain into limb Skin/Breast Denies skin ulcer and Denies wounds Neuro Reports Normal hearing present and Denies abnormal gait Psych Reports no additional complaints Physical Exam Vital Signs: BMI result Body Mass Index 49.2 Const General: cooperative, healthy appearing and comfortable Orientation/consciousness: oriented to person, oriented to place and oriented to time HEENT Head: Yes normal to inspection Neck Neck: Yes normal visual inspection Carotids: no bruits Chest Chest palpation & inspection: normal inspection of the chest Resp Effort & Inspection: normal respiratory effort and able to speak in complete sentences Auscultation: clear to auscultation bilaterally, no crackles, no rales, no rhonchi and no wheezes Cardio Rate: regular rate Rhythm: regular rhythm Heart sounds: S1 normal heart sound present and S2 normal heart sound present Bruits: no carotid bruits Peripheral pulses: Peripheral pulses 2+ throughout GI Inspection: Yes normal to inspection Skin Wounds: no wounds Hair: normal Neuro General: oriented to person, oriented to place and oriented to time Cranial nerves: Yes CN's II-XII intact bilaterally and Yes Normal hearing present Cognition (Neuro): normal cognition Motor exam (neuro): 5/5 motor strength present throughout Extrem Other: venous exam: No significant superficial varicosities or spider telangiectasias, minimal edema General: No clubbing, No cyanosis and No edema Psych Appearance: grossly normal Mental Status: mental status grossly normal Speech and movement: Normal speech and movement present Results Reviewed Results Reviewed: Arterial testing dated 07/02/2024 demonstrates MIGUEL ANGEL on the right of 0.93 and on the left of 1.2. Written report and images were reviewed. Assessment & Plan Assessment & Plan (1) PAD (peripheral artery disease): Comment: 07/14/2022- diagnostic angiogram 07/19/2022 - left great toe amp Code(s): I73.9 - Peripheral vascular disease, unspecified Category: Medical Plan: In short patient has stable claudication. I did review the pathophysiology of peripheral vascular disease with the patient. In addition we did discuss routine conservative measures including a healthy diet and the importance of exercise and ambulation. We did discuss risk factor modification. We also discuss the importance of weight loss as well. The patient will continue to to follow-up with surveillance follow-up in approximately 1 year. Thank you for allowing us to participate in this patient's care. If there are any questions or concerns please do not hesitate to contact us. Orders: Orders US arterial duplex LE BI 1 Year I73.9 - Peripheral vascular disease, unspecified Coding Level of Care Code Est Pt Level 4 (50444) Complex EM visit Add On G2211 Diagnoses PAD (peripheral artery disease) I73.9
--- OUTSIDE RECORDS SUMMARY | 2024-07-12 13:03 | XMS_ITS | Continuity of Care Document ---
Author Organization [facility] Address [address] [place] [address] Phone [phone] Care Team Providers Care Community Health Worker Name Role Phone Loretta Guevara M.D. Care Team Information Receiv er [phone] Hailey Jean [facility] Care Team Information Rec eiver [phone] Problems Active Problems Provider Date Type 2 diabetes mellitus Jose Max M.D. O nset: 08/09/2022 Atrial fibrillation Jose Max M.D. Onset: 08/09/2022 Essential hypertension Jsoe Max M.D. Ons et: 08/09/2022 Hypercholesterolemia Jose [...] Indications Order ing Provider Date Metformin HCL [id number] Tablets ER 24HR Take 1 Tablet By Mouth Twice A Day 180tabs Jose Max M.D. 01/11/2023 Trulicity0.75mg/0.5M L Solution Pen-Inject inject 1 pen once a week for 30 days 6ml Jose Max M.D. 01/11/2023 Fluticasone Alldczpnju34pag/Act Suspension [place] 1 [place] Into Each Nostril 2 Times Daily as Needed For Nasal Congestion Unknown [id number] Capsules Take 1 Capsule By Mouth Twice A Day Loretta Guevara M.D. Yhmzjqo3zo Tablets Take 1 Tablet By Mouth Twice A Day Loretta Guevara M.D. Atorvastatin Exvcsbs64uz Tablets Take 1 Tablet By Mouth Every Day Loretta Guevara M.D. Freestyle LancetsMisc Use To Test Sugar Twice A Day Loretta Guevara M.D. Glipizide ER5mg Tablets ER 24HR Take half qam Loretta Guevara M.D. Amiodarone [id number] Tablets Take half Tablet By Mouth Every Day Unknown [id number] Tablets Take 1and one halfTABLET By Mouth Every Day Unknown Diltiazem HCL ER Coated Smund549vz Caps ER 24HR Take 1 Capsule By [...] Hemoglobin A1c 6.2% Laboratory test finding 02/04/2023 [facility] TSH With Reflex To FT4 [...]
== END 2024-07-12 11:16 | disposition home or self-care (01) ==
PROVIDERS: PCP Nurse Practitioner Family; Visit Provider Surgery Vascular Surgery
DX: I73.9 Peripheral vascular disease, unspecified (principal)
CPT/HCPCS: 99214

== ENCOUNTER 2024-11-01 14:19 | Outpatient (RCR) | payer BC, SELFPAY | END 2024-12-13 12:00 | disposition home or self-care (01) | LOC: HO.WCC 14:19 | PROVIDERS: PCP Nurse Practitioner Family; Visit Provider Colon & Rectal Surgery | DX: E11.40 Type 2 diabetes mellitus with diabetic neuropathy, unspecified (principal); I10 Essential (primary) hypertension | CPT/HCPCS: 11042; 97597; 99211; 99212; 99213 ==

== ENCOUNTER 2025-02-28 11:30 | Outpatient (RCR) | payer BC, SELFPAY | END 2025-02-28 16:00 | disposition home or self-care (01) | LOC: HO.WCC 11:30 | PROVIDERS: PCP Nurse Practitioner Family; Visit Provider Surgery Surgical Oncology | DX: E11.40 Type 2 diabetes mellitus with diabetic neuropathy, unspecified (principal); I10 Essential (primary) hypertension; Z79.84 Long term (current) use of oral hypoglycemic drugs | CPT/HCPCS: 99203; 99212 ==